=== PATIENT | male | born 1965 | race Caucasian/White ===

== ENCOUNTER 2023-06-29 11:52 | Emergency (ER) | payer OTHER, SELFPAY ==
--- NOTE | ~2023-06-29 | XR_ITS ---
EXAMINATION: XR elbow RT min 3V DATE: 06/29/2023 12:31 INDICATION: Right elbow swelling. TECHNIQUE: 4 views of right elbow were obtained. COMPARISON: None. FINDINGS: Bone alignment is normal. No fracture. Joint spaces are normal. No elbow joint effusion. Th ere is soft tissue swelling overlying the olecranon, consistent with bursitis. IMPRESSION: 1. Olecranon bursitis. Reviewed, dictated and finalized at location B. IMPRESSION: 1. Olecranon bursitis.
[2023-06-29 12:00] VITALS: BP 139/82; PULSE 83; RESP 16; TEMP 35.6; O2SAT 96
--- NOTE | 2023-06-29 12:27 | ED.GENADULT ---
HPI - General Adult General Chief complaint: Extremity Injury, Upper Stated complaint: Right Elbow Time Seen by Provider: 06/29/23 12:20 Source: patient, family, RN notes reviewed and old records reviewed Mode of arrival: ambulatory Limitations: no limitations History of Present Illness HPI narrative: 57 year old male who presents to [facility] care with complaints of right elbow pain, warmth, swelling and redness for one week duration. Patient reports that he hit his right elbow on an electric fence one week ago and progressed to having bursa of his right elbow swell with redness and pain developing. Patient reports that he has been taking Tylenol and using Epsom Salt soaks to his right elbow olecranon area.Patient appears to have fluid formation on olecranon process, he states he squeezed area yesterday and some blood came out of it. Patient reports no fevers, is able to move arm on own power does state that pain has increased today.Patient is on Plavix. MD complaint: right elbow red swollen, warm and painful Onset (ago): week(s) (1) Location: right and upper extremity (elbow bursa) Severity scale (1-10): 5 Quality: aching Treatments prior to arrival: other (Tylenol and Epsom Salt soaks) Related Data Home Medications Medication Instructions Recorded Confirmed amlodipine 10 mg tablet mg 06/29/23 atorvastatin 80 mg tablet mg 06/29/23 clopidogrel 75 mg tablet mg 06/29/23 fluticasone furoate 100 inhalation 06/29/23 mcg-vilanterol 25 mcg/dose inhalation powder (Breo Ellipta) lisinopril 40 mg tablet mg 06/29/23 metoprolol tartrate 100 mg tablet mg 06/29/23 Allergies Allergy/AdvReac Type Severity Reaction Status Date / Time No Known Allergies Allergy Verified 06/29/23 12:04 Review of Systems Review of Systems: CONSTITUTIONAL: Denies fever, chills, or sweats. EYES: Denies visual changes, redness, or discharge. ENT: Denies rhinorrhea, congestion, sore throat, or otalgia. CARDIOVASCULAR: Denies chest pain, palpitations, or edema. RESPIRATORY: Denies cough or dyspnea. GASTROINTESTINAL: Denies abdominal pain, nausea, vomiting, or diarrhea. GENITOURINARY: Denies dysuria or hematuria. SKIN: Denies rash or itching. MUSCULOSKELETAL: Denies back pain,positive for right elbow pain with swelling redness fluid filled appearance with warmth, or myalgia. NEUROLOGIC: Denies headache, numbness, or weakness. PSYCHIATRIC: Denies anxiety or depression. 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 There is no relevant family history pertinent to the presenting complaint Exam Narrative: GENERAL: Well-appearing, well-nourished, and in no acute distress. HEAD: Normocephalic, atraumatic. EYES: PERRLA and EOMI. ENT: Nares clear, no rhinorrhea or epistaxis. Mucous membranes moist. NECK: Supple.no lymphadenopathy CHEST: Clear to auscultation. No respiratory distress.SAO2 96% on room air no dyspnea noted HEART: Regular rate and rhythm. No murmur heard. Normal peripheral pulses. ABDOMEN: Soft, nontender, nondistended, normal active bowel sounds. EXTREMITIES: Normal range of motion. No edema.Exception noted to right olecranon area which has fluid filled tissue with acute pain, redness swelling and warmth of tissue area with increasing pain to site. Patient has good pulses of right arm, is able to move right arm and elbow on own power. SKIN: Warm, d
== END 2023-06-29 12:59 | disposition short-term general hospital (02) ==
PROVIDERS: Emergency Provider Registered Nurse
DX: M71.121 Other infective bursitis, right elbow (principal); E78.00 Pure hypercholesterolemia, unspecified; I10 Essential (primary) hypertension; Z87.891 Personal history of nicotine dependence; I25.10 Atherosclerotic heart disease of native coronary artery without angina pectoris; Z95.5 Presence of coronary angioplasty implant and graft; Z79.01 Long term (current) use of anticoagulants
CPT/HCPCS: 73080; 99213; G0463

== ENCOUNTER 2024-11-29 13:05 | Emergency (ER) | payer OTHER, SELFPAY ==
[2024-11-29 13:28] VITALS: BP 126/81; PULSE 121; RESP 22; TEMP 36.1; O2SAT 98
--- NOTE | 2024-11-29 13:54 | ED.GENADULT ---
HPI - General Adult General Chief complaint: Unspecified Stated complaint: PAIN IN LEGS/KNEES/SHOULDERS Time Seen by Provider: 11/29/24 13:54 Source: patient, RN notes reviewed and old records reviewed Mode of arrival: ambulatory Limitations: no limitations History of Present Illness HPI narrative: 59-year-old male presents to the [facility] with bilateral shoulder, knee pain since cleaning out the horse Stalls 2-3 days ago. Has been taking ibuprofen Patient reports just generalized ?muscle pain?. Patient denies any chest pain or shortness of breath. Patient reports he has been taking ibuprofen and Tylenol at home. Treatments prior to arrival: NSAID Related Data Home Medications ?Medication ?Instructions ?Recorded ?Confirmed ?Last Taken ?Type amlodipine 10 mg tablet 10 mg PO DAILY 06/29/23 Unknown History atorvastatin 80 mg tablet 80 mg PO DAILY 06/29/23 Unknown History clopidogrel 75 mg tablet 75 mg PO DAILY 06/29/23 Unknown History lisinopril 40 mg tablet 40 mg PO DAILY 06/29/23 Unknown History metoprolol tartrate 100 mg tablet 100 mg PO DAILY 06/29/23 Unknown History ezetimibe 10 mg tablet 10 mg PO DAILY 11/29/24 Unknown History Allergies Allergy/AdvReac Type Severity Reaction Status Date / Time No Known Allergies Allergy Verified 11/29/24 13:42 Review of Systems Review of Systems: All systems reviewed & are unremarkable except as noted in HPI and below Constitutional: Constitutional: Reports no additional constitutional complaints ENT: Reports system reviewed and no additional complaints, except as documented Cardiovascular: Cardiovascular: Reports no additional cardiovascular complaints, Denies chest pain and Denies dyspnea Respiratory: Respiratory: Reports no additional respiratory complaints, Denies chest congestion, Denies cough and Denies dyspnea Musculoskeletal: Musculoskeletal: Reports as per HPI Integumentary/Breasts: Skin/Breast: Reports system reviewed and no additional complaints, except as docu PMFSH Past Medical History Medical History Myocardial infarction Hx of [facility] use of blood thinners Elevated cholesterol Hypertension Surgical History Surgical History History of heart artery stent LAD History of cholecystectomy Social History Social History Smoking status: Never smoker Smoking end date: 11/26/05 Alcohol intake: current Comments At the time of my signature, I reviewed and agree with the nursing past medical, surgical, social, and family history. There is no relevant family history pertinent to the patient complaint. Exam Const: General: cooperative, healthy appearing, no acute distress, well developed, alert, uncomfortable and well nourished Nutritional Appearance: well nourished Orientation/consciousness: patient oriented x3 Limitations: no limitations HENMT: Head: normal to inspection Eyes: General: appearance normal, both eyes and all related structures Alignment and Position: alignment normal Neck: Neck: normal visual inspection, full ROM, no lymphadenopathy and no meningeal signs Chest: Chest palpation & inspection: normal inspection of the chest and no tenderness Resp: Effort & Inspection: normal respiratory effort and able to speak in complete sentences Auscultation: clear to auscultation bilaterally, no crackles, no rales, no rhonchi and no wheezes Cardio: Rate: regular rate Back/Spine/Pelvis: Back: no CVA tenderness Cervical Spine: normal cervical lordosis, cervical ROM normal and No Cervical spine tenderness Thoracic/Lumbar Spine: No thoracic spinal tenderness and No lumbar spinal tenderness Skin: General skin exam: normal color and no rashes or lesions noted Neuro: General: patient oriented x3, gait normal, moves all extremities and no meningeal signs Cognition (Neuro): normal cognition Speech: normal speech Gait exam (Neuro): Normal gait present Extrem: General: normal to inspection, full ROM, capillary refill normal and normal gait Psych: Appearance: grossly normal and well kempt Mental Status: mental status grossly normal Speech and movement: Normal speech and movement present and Clear speech present Affect: normal affect Attitude: cooperative Course Course Level of Care: Express Care Visit Vital Signs Vital signs: Vital Signs Temperature 96.9 F L 11/29/24 13:28 Pulse Rate 121 H 11/29/24 13:28 Respiratory Rate 22 H 11/29/24 13:28 Blood Pressure 126/81 11/29/24 13:28 Pulse Oximetry 98 11/29/24 13:28 Oxygen Delivery Room Air 11/29/24 13:28 Temperature 96.9 F L 11/29/24 13:28 Pulse Rate 121 H 11/29/24 13:28 Respiratory Rate 22 H 11/29/24 13:28 Blood Pressure 126/81 11/29/24 13:28 Pulse Oximetry 98 11/29/24 13:28 Oxygen Delivery Room Air 11/29/24 13:28 Reviewed Medical Decision Making MDM Narrative Medical decision making narrative: Patient sitting comfortably in exam room. Nontoxic, vitals stable. Patient in no acute distress Patient presents for 3 day history of generalized muscle pain worse with movement. No acute findings noted on exam. No rashes, erythema, ecchymosis. No midline spinal tenderness. Educated patient on not using ibuprofen especially when he is on blood thinners. Will attempt a muscle relaxer. Discussed in great detail signs and symptoms to go the emergency room in regards to the body aches. Patient was denying chest pain and shortness of breath. Discharge instructions reviewed with patient, as well as provided in writing per nursing staff. The instructions also include specific and strict return/GO TO THE ER as well as f/u information. All questions have been answered, and the patient deny any further questions with discharge and discharge plan. Some parts of this dictation were generated by voice recognition software and may contain typographical and/or grammatical inaccuracies. Differential Diagnosis Differential Diagnosis: Muscle strain, pain, rhabdo Medical Records Medical records reviewed: Yes I reviewed the external patient's medical records. Vital Signs Vital Signs: Vital Signs Temperature 96.9 F L 11/29/24 13:28 Pulse Rate 121 H 11/29/24 13:28 Respiratory Rate 22 H 11/29/24 13:28 Blood Pressure 126/81 11/29/24 13:28 Pulse Oximetry 98 11/29/24 13:28 Oxygen Delivery Room Air 11/29/24 13:28 Temperature 96.9 F L 11/29/24 13:28 Pulse Rate 121 H 11/29/24 13:28 Respiratory Rate 22 H 11/29/24 13:28 Blood Pressure 126/81 11/29/24 13:28 Pulse Oximetry 98 11/29/24 13:28 Oxygen Delivery Room Air 11/29/24 13:28 Reviewed Lab Data Lab results reviewed: Yes I reviewed the patient's lab results. Labs: Reviewed Critical Care Time Critical Care Time Critical Care Time: No Discharge Plan Discharge Clinical Impression: Muscle strain Patient Disposition: Home, Self-Care Condition: Stable Instructions: Musculoskeletal Pain (ED), Lower Back Exercises (ED) Additional Instructions: Take Tylenol per package instructions. Take Baclofen (muscle relaxer) as directed. Do not drink, drive, operate machinery, or do anything dangerous while taking this medication While on Plavix it is not recommended that you do take ibuprofen or any other nonsteroidal anti-inflammatories. Exercise:Combine aerobic exercise, like walking or swimming, with specific exercises to keep the muscles in your back and abdomen strong and flexible. Proper Lifting:Be sure to lift heavy items with your legs, not your back. Do not bend over to pick something up. Keep your back straight and bend at your knees. Weight:Maintain a healthy weight. Being overweight puts added stress on your lower back. Avoid Smoking:Both the smoke and the nicotine cause your spine to age faster than normal. Proper Posture:Good posture is important for avoiding future problems. A therapist can teach you how to safely stand, sit, and lift. Use warm moist heat to help with pain. Using topical such as Biofreeze, Kenneth-Smith or Aspercreme can also help Follow up with Primary provider in 2-3 days, This may become a chronic condition and they will be the one to help manage your pain and order additional testing. Go to the nearest ER if you develop problems with new or worsening symptoms, bladder/bowel function, weakness or loss of feeling in one or both of your legs. Patient Language: Chinese Prescriptions: New baclofen 10 mg tablet 10 mg PO TID PRN (Reason: muscle pain) Qty: 10 0RF No Action atorvastatin 80 mg tablet 80 mg PO DAILY metoprolol tartrate 100 mg tablet 100 mg PO DAILY clopidogrel 75 mg tablet 75 mg PO DAILY amlodipine 10 mg tablet 10 mg PO DAILY lisinopril 40 mg tablet 40 mg PO DAILY ezetimibe 10 mg tablet 10 mg PO DAILY Follow-up/Referrals: Serg,Brice Spencer MD [Primary Care Provider] - 2 Weeks ([facility] care follow up ) Stand Alone Forms: Work/School Release IP Time of Disposition: 14:11
--- OUTSIDE RECORDS SUMMARY | 2024-12-06 19:52 | XMS_ITS | Data Portability ---
Author Organization [facility] BETOTracie Sifuentes Address [address] [place] [address] Care Team Providers Care Shake Maker Name Role Phone BRICE BERNARD Primary Care Provider Assessment Encounter Date Assessment Date Assessment LastModified by Organization Details LastModified Time 01/18/2016 01/18/2016 Patient was encouraged to consider a colonoscopy. He is UTD on his Td. [email or web address] Not available 01/18/2016 18:23:44 12/11/2017 12/11/2017 Dr. Aguilar is his sweet dough mixer, whom pt sees annually. Not available 12/12/2017 13:43:47 03/26/2019 03/26/2019 If no marked improvement with Medrol dosepak, pt is to let us know, at which point we would likely recommend an orthopedic referral. Not available 03/26/2019 20:29:06 09/11/2023 09/11/2023 Pt is stable with workup as described below. He was accompanied by his . Mamie. 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 [email or web address] Not available 01/21/2024 07:30:07 Plan of Treatment Reminders Order Date Submit Date Provider Last Modified By Organization Details Last Modified Time Details Appointments None record ed. Lab CBC 2015 016 [email or web address], [address] [place], [address], 6 04:22:11 TSH, serum or plasma 2015 016 [email or web address], [address] [place], [address], 6 04:22:12 lipid panel, serum 2015 016 [employer] [facility], [address] [place], [address], 6 04:22:10 CMP, serum or plasma 2015 016 [employer] [facility], [address] [place], [address], 6 04:22:11 PSA, total, serum or plasma 2022 023 [email or web address] [facility], [address] [place], [address], 3 15:18:17 HbA1c (hemog lobin A1c), blood 2022 023 [email or web address] [facility], [address] [place], [address], 3 15:18:17 lipid panel, serum 2022 023 [email or web address] [facility], [address] [place], [address], 3 15:18:17 CMP, serum or plasma 2022 023 [email or web address] [facility], [address] [place], [address], 3 15:18:17 TSH, ultra- sensit lucila, serum 2022 023 [email or web address] [facility], [address] [place], [address], 3 15:18:17 CBC w/ auto diff 2022 023 [email or web address] [facility], [address] , [place], [address], 3 15:18:17 Referral hand surgeo n referr al 2022 023 [email or web address] Arrington MD, [address] [facility] , [address], [place], [address], 4 16:56:02 orthop edic surgeo n referr al 2023 024 LYNN Soriano MD, [address] [facility] , [address], [place], [address], 4 12:51:28 orthop edic surgeo n referr al 2023 024 LYNN Soriano MD, [address] [facility] , [address], [place], [address], 4 16:07:13 Procedures None record ed. Surgeries None record ed. Imaging None record ed. Medication Orders Bactri m DS 800 mg-160 mg tablet 2015 016 [facility], [address], [place], [address], 8 14:47:53 amlodi pine 5 mg tablet [address] [facility], [address] [place] [address], [address], [place], [address], 3 07:50:35 Medrol (Sharath) 4 mg tablet s in a dose pack [address] [facility], [address], [place], [address], 3 07:50:57 tramad ol 50 mg tablet [address] [facility], [address], [place], [address], 07:28:49 Patient TargetsNo targets recorded. Patient Instructions Encounter Date Encounter Id Patient Instructions Last Modified By Organization Details Last Modified Time 01/18/2016 [id number] plantar fasciitis: care instructions [email or web address] Not available 01/18/2016 18:23:44 plantar fasciitis: exercises [email or web address] Not available 01/18/2016 18:23:44 When You Want to Lose Weight: Care Instructions [email or web address] Not available 01/18/2016 18:23:44 12/11/2017 [id number] learning about high blood pressure [email or web address] Not available 12/11/2017 15:33:13 03/26/2019 [id number] learning about high blood pressure [email or web address] Not available 03/26/2019 15:08:30 09/11/2023 [id number] When You Want to Lose Weight: Care Instructions [email or web address] Not available 09/11/2023 15:18:17 learning about high blood pressure [email or web address] Not available 09/11/2023 15:18:17 Reason for Referral Hand Surgeon Referral for Pa in in right hand Referring Physician: Brice Bernard [facility], Encounter Date: 09/11/2023 Orthopedic Surgeon Referral for Pain of right knee region Referring Physician: Brice Bernard [facility], Encounter Date: 01/16/2024 Orthopedic Surgeon Referral for Pain in right thumb Referring Physician: Brice Bernard [facility], Encounter Date: 01/16/2024 Results Created Date Observation Date Name Description Value Unit Range Abnormal Flag Note LastModifiedBy Organization Detail LastModifiedTime 01/20/20 16 01/21/2016 lipid panel , serum cholesterol, total 302 mg/dL 125-20 0 high Not Available [facility] [address] [place], [address], 01/21/2016 06:32:08 01/20/20 16 01/21/2016 lipid panel , serum HDL cholesterol 42 mg/dL > or = 40 normal Not Available [facility] [address] [place], [address], 01/21/2016 06:32:08 01/20/20 16 01/21/2016 lipid panel , serum triglyceride s 260 mg/dL <150 high Not Available [facility] [address], [address], 01/21/2016 06:32:08 01/20/20 16 01/21/2016 lipid panel , serum LDL-choleste rol 208 mg/dL _(amirah c) <130 high LDL-C level s > or = 190 mg/dL may indic ate famil ial hyper anil stero lemia (FH). Clini amirah asses sment and measu remen t of blood lipid level s shoul d be consi dered for all first degre e relat juliann of patie nts with an FH diagn osis. J of Clini amirah Lipid ology 5:S1- S8 2010. Gabbi able range <100 mg/dL for patie nts with CHD or diabe steven and <70 mg/dL for diabe tic patie nts with known heart disea se. Not Available [facility] [address] [place], [address], 01/21/2016 06:32:08 01/20/20 16 01/21/2016 lipid panel , serum chol/HDLC ratio 7.2 (calc ) < or = 5.0 high Not Available [facility] [address], [address], 01/21/2016 06:32:08 01/20/20 16 01/21/2016 lipid panel , serum non HDL cholesterol 260 mg/dL _(amirah c) high Targe t for non-H DL anil stero l is 30 mg/dL highe r than LDL anil stero l targe t. Not Available [facility] [address], [address], 01/21/2016 06:32:08 01/20/20 16 01/21/2016 CMP, serum or plasm a glucose 115 mg/dL 65-99 high Fasti ng refer ence inter freddie Not Available [facility] [address], [address], 01/21/2016 06:32:01/20/20 16 01/21/2016 CMP, serum or plasm a urea nitrogen (BUN) 17 mg/dL 7-25 normal Not Available [address], [address], 01/21/2016 06:32:01/20/20 16 01/21/2016 CMP, serum or plasm a creatinine 0.99 mg/dL 0.70-1 .33 normal For patie nts >49 years of age, the refer ence limit for Creat inine is appro ximat narayan 13% highe r for peopl e ident ified as Afric an-Am shima n. Not Available [address], [address], 01/21/2016 06:32:01/20/20 16 01/21/2016 CMP, serum or plasm a eGFR non-afr. indian 88 mL/mi n/1.7 3m2 > or = 60 normal Not Available [facility] [address], [address], 01/21/2016 06:32:01/20/20 16 01/21/2016 CMP, serum or plasm a eGFR 102 mL/mi n/1.7 3m2 > or = 60 normal Not Available [facility] [address], [address], 01/21/2016 06:32:01/20/20 16 01/21/2016 CMP, serum or plasm a BUN/creatini ne ratio NOT APPLIC ABLE (calc ) 6-22 Not Available [address], [address], 01/21/2016 06:32:01/20/20 16 01/21/2016 CMP, serum or plasm a sodium 138 mmol/ L 135-14 6 normal Not Available [address], [address], 01/21/2016 06:32:01/20/20 16 01/21/2016 CMP, serum or plasm a potassium 4.6 mmol/ L 3.5-5. 3 normal Not Available [address], [address], 01/21/2016 06:32:01/20/20 16 01/21/2016 CMP, serum or plasm a chloride 102 mmol/ L 98-110 normal Not Available [address], [address], 01/21/2016 06:32:01/20/20 16 01/21/2016 CMP, serum or plasm a carbon dioxide 28 mmol/ L 19-30 normal Not Available [address], [address], 01/21/2016 06:32:01/20/20 16 01/21/2016 CMP, serum or plasm a calcium 9.7 mg/dL 8.6-10 .3 normal Not Available [address], [address], 01/21/2016 06:32:01/20/20 16 01/21/2016 CMP, serum or plasm a protein, total 7.3 g/dL 6.1-8. 1 normal Not Available [address], [address], 01/21/2016 06:32:01/20/2001/21/2016 CMP, serum or plasm a albumin 4.6 g/dL 3.6-5. 1 normal Not Available [facility] [employer] [address], [address], 01/21/2016 06:32:01/20/20 16 01/21/2016 CMP, serum or plasm a globulin 2.7 g/dL_ (calc ) 1.9-3. 7 normal Not Available [address], [address], 01/21/2016 06:32:09 01/20/20 16 01/21/2016 CMP, serum or plasm a albumin/glob ulin ratio 1.7 (calc ) 1.0-2. 5 normal Not Available [address], [address], 01/21/2016 06:32:09 01/20/20 16 01/21/2016 CMP, serum or plasm a bilirubin, total 0.6 mg/dL 0.2-1. 2 normal Not Available [address], [address], 01/21/2016 06:32:09 01/20/20 16 01/21/2016 CMP, serum or plasm a alkaline phosphatase 59 U/L 40-115 normal Not Available [facility] [employer] [address], [address], 01/21/2016 06:32:09 01/20/20 16 01/21/2016 CMP, serum or plasm a AST 24 U/L 10-35 normal Not Available [address], [address], 01/21/2016 06:32:09 01/20/20 16 01/21/2016 CMP, serum or plasm a ALT 32 U/L 9-46 normal Not Available [address], [address], 01/21/2016 06:32:09 01/20/20 16 01/21/2016 CBC white blood cell count 8.1 thous and/u L 3.8-10 .8 normal Not Available [address], [address], 01/21/2016 06:32:10 01/20/20 16 01/21/2016 CBC red blood cell count 5.50 lisandro on/uL 4.20-5 .80 normal Not Available [address], [address], 01/21/2016 06:32:10 01/20/20 16 01/21/2016 CBC hemoglobin 14.9 g/dL 13.2-1 7.1 normal Not Available [address], [address], 01/21/2016 06:32:10 01/20/20 16 01/21/2016 CBC hematocrit 46.6 % 38.5-5 0.0 normal Not Available [address], [address], 01/21/2016 06:32:10 01/20/20 16 01/21/2016 CBC MCV 84.6 fL 80.0-1 00.0 normal Not Available [address], [address], 01/21/2016 06:32:10 01/20/20 16 01/21/2016 CBC MCH 27.1 pg 27.0-3 3.0 normal Not Available [address], [address], 01/21/2016 06:32:10 01/20/20 16 01/21/2016 CBC MCHC 32.0 g/dL 32.0-3 6.0 normal Not Available [address], [address], 01/21/2016 06:32:10 01/20/20 16 01/21/2016 CBC RDW 14.2 % 11.0-1 5.0 normal Not Available [address], [address], 01/21/2016 06:32:10 01/20/20 16 01/21/2016 CBC platelet count 242 thous and/u L 140-40 0 normal Not Available [address], [address], 01/21/2016 06:32:10 01/20/20 16 01/21/2016 TSH, serum or plasm a TSH 2.71 mIU/L 0.40-4 .50 normal Not Available [facility] [address] [place], [address], 01/21/2016 06:32:10 05/20/20 19 05/13/2019 tread mill nucle ar stres s test (PROC ) No observ ation record ed. [email or web address] [facility] [employer]addle [employer] [address], [place], [address], 05/31/2019 23:40:51 Result Notes None recorded. Problems Name Problem SNOMED Code Status Onset Date Resolution Date Notes Provider Name and Address Organization Details Recorded Time Plantar fasciitis Active Brice Bernard MD Attn: Cedric rowland,[address] [place], [address], [place] - [facility] 6 18:23:44 Infection of skin 256704652 Active Brice Bernard MD Attn: Cedric rowland,[address] [place], [address], [place] [facility] 6 18:23:44 Arthritis 5889995 Active Brice Bernard MD Attn: Cedric [address]land,[address] [place], [address], [place] [facility] 6 18:23:44 Morbid obesity 334461526 Active Brice Bernard MD Attn: Cedric rowland,[address] [place], [address], [place] [facility] 6 18:23:44 Cellulitis of foot 357587699 Active Brice Bernard MD Attn: Cedric rowland,[address] [place], [address], [place] [facility] 6 14:06:04 Problem Notes None recorded. Procedures Surgical History Date Name Laterality Status Provider Name and Address Organization Details Recorded Time Cholecystectomy completed Camila Farfan [place] [facility] 01/16/2024 15:00:39 Imaging Results Imaging Date Name Status LastModified by Organiz ation Details LastModified Time 05/13/2019 treadmill nuclear stress test (PROC) completed [email or web address] [facility] [employer] [address], [place], [address], 05/31/2019 23:40:51 Procedure Notes None recorded. Medical Equipment None Reported. Allergies No known drug allergies Medications Name Sig Start Date Stop Date Status Note LastModified by Organization Details LastModified Time atorvasta tin 40 mg tablet TAKE 1 TABLET EVERY DAY 01/16 completed Not Available Not Available Not Available atorvasta tin 80 mg tablet TAKE 1 TABLET BY MOUTH ONCE DAILY active Not Available Not Available No t Available metoprolo l tartrate 100 mg tablet TAKE 1 TABLET BY MOUTH TWICE DAILY active Not Available Not Available No t Available ondansetr on HCl 8 mg tablet Take 1 tablet every 8 hours by oral route as needed. 01/16 completed Not Available Not Available Not Available Medrol (Sharath) 4 mg tablets in a dose pack take as directed 09/16 completed Not Available Not Available Not Available clopidogr el 75 mg tablet TAKE 1 TABLET BY MOUTH ONCE DAILY . APPOINTM ENT REQUIRED FOR FUTURE REFILLS active Not Available Not Available No t Available amlodipin e 5 mg tablet TAKE 1 TABLET BY MOUTH ONCE DAILY FOR 90 DAYS 09/16 completed Not Available Not Available Not Available tramadol 50 mg tablet Take by oral route for 7 days. 2023 active [facility] - Tramadol 50mg tab approved PA# [id number] from 02/05/24 to 03/06/24 Not Available Not Available Not Available acyclovir 800 mg tablet Take 1 tablet 5 times a day by oral route for 10 days. 01/16 completed Not Available Not Available Not Available cefadroxi l 500 mg capsule 09/16 completed Not Available Not Available Not Available alprazola m 0.25 mg tablet Take 1 tablet 3 times a day by oral route as needed. 01/16 completed Not Available Not Available Not Available amlodipin e 10 mg tablet TAKE 1 TABLET BY MOUTH ONCE DAILY active Not Available Not Available No t Available aspirin 81 mg chewable tablet Chew 1 tablet every day by oral route. 01/16 completed Not Available Not Available Not Available albuterol sulfate HFA 90 mcg/actua tion aerosol inhaler INHALE 2 PUFFS BY MOUTH EVERY 4 HOURS NEEDED FOR WHEEZING OR SHORTNES S OF BREATH 01/16 completed Not Available Not Available Not Available lisinopri l 40 mg tablet TAKE 1 TABLET BY MOUTH ONCE DAILY active Not Available Not Available No t Available naproxen 500 mg tablet TAKE 1 TABLET BY MOUTH TWICE DAILY WITH MEALS active Not Available Not Available No t Available Bactrim DS 800 mg-160 mg tablet Take 1 tablet every 12 hours by oral route. 12/11 completed Not Available Not Available Not Available Vitamin C take 1 tablet daily active Not Available Not Available No t Available vitamin E take 1 tablet daily active Not Available Not Available No t Available Symbicort 160 mcg-4.5 mcg/actua tion HFA aerosol inhaler INHALE 2 PUFFS BY MOUTH TWICE DAILY. RINSE MOUTH WITH WATER AFTER USE. DO NOT SWALLOW. 01/16 completed Not Available Not Available Not Available metoprolo l suc 100 mg-hydroc hlorothia zide 12.5 mg tablet,ex t.rel 24 hr Take 1 tablet twice a day by oral route. 09/16 completed Not Available Not Available Not Available Breo Ellipta 100 mcg-25 mcg/dose powder for inhalatio n INHALE 1 PUFF BY MOUTH DAILY. RINSE MOUTH WITH WATER AFTER USE. DO NOT SWALLOW. 01/16 completed Not Available Not Available Not Available Anoro Ellipta 62.5 mcg-25 mcg/actua tion powder for inhalatio n INHALE 1 PUFF BY MOUTH ONCE DAILY 01/16 completed Not Available Not Available Not Available Vitamin B12 take 1 tablet daily active Not Available Not Available No t Available Vitals Date Recorded Body height Body mass index (BMI) Body weight Heart rate Respiratory rate Body temperature Systolic blood pressure Diastolic blood pressure Provider Name and Address Organization Details Last Updated DateTime 8 193.04 cm 36.2 kg/m2 152079. 12 g 76 /min 16 /min 97.9 [degF] 164 mm[Hg] 90 mm[Hg] Camila Farfan [place] [facility] 8 14:47:13 Date Recorded Body weight Heart rate Respiratory rate Body temperature Systolic blood pressure Diastolic blood pressure Provider Name and Address Organization Details Last Updated DateTime 9 025321. 27 g 80 /min 16 /min 98.1 [degF] 122 mm[Hg] 80 mm[Hg] Camila Farfan MA [facility] 9 14:28:32 Date Recorded Body height Body mass index (BMI) Body weight Oxygen saturation Oxygen saturation in Arterial blood by Pulse oximetry Heart rate Respiratory rate Body temperature Provider Name and Address Organization Details Last Updated DateTime 3 193.04 cm 36.9 kg/m2 661685. 49 g 95 % 95 % 72 /min 16 /min 96.9 [degF] Camila Farfan MA [facility] 3 12:02:53 Date Recorded Systolic blood pressure Diastolic blood pressure Provider Name and Address Organization Details Last Updated DateTime 09/11/2023 164 mm[Hg] 100 mm[Hg] Brice Bernard MD Attn: Accounting[address] [place], [address], [facility] 09/16/2023 07:50:12 Date Recorded Body height Body mass index (BMI) Body weight Oxygen saturation Oxygen saturation in Arterial blood by Pulse oximetry Heart rate Respiratory rate Body temperature Provider Name and Address Organization Details Last Updated DateTime 4 193.04 cm 35.6 kg/m2 040196. 77 g 98 % 98 % 68 /min 16 /min 96.9 [degF] Camila Farfan MA [facility] 4 15:02:19 Date Recorded Systolic blood pressure Diastolic blood pressure Systolic blood pressure Diastolic blood pressure Provider Name and Address Organization Details Last Updated DateTime 01/16/2024 154 mm[Hg] 90 mm[Hg] 132 mm[Hg] 90 mm[Hg] Brice Bernard MD Attn: Accounting ,[address] [place], [address] , [facility] 4 15:27:15 Date Recorded Body mass index (BMI) Heart rate Body height Body weight Respiratory rate Systolic blood pressure Diastolic blood pressure Provider Name and Address Organization Details Last Updated DateTime 6 35.7 kg/m2 68 /min 193.04 cm 877764. 833314 g 16 /min 138 mm[Hg] 90 mm[Hg] Rosario Krishna MA [facility] 6 14:15:44 Social History Question Answer Notes LastModified by Organizat ion Details LastModified Time Tobacco Smoking Status Former Smoker Rosario Krishna MA null, [place] - [facility] 01/18/2016 14:11:17 Do You Have An Advance Directive? No Information not available 01/16/2024 What Is Your Level Of Alcohol Consumption? None Information not available 01/16/2024 Are You Blind Or Do You Have Difficulty Seeing? Yes Is Supposed To Use Glasses But Doesn't Information not available 01/16/2024 What Is Your Level Of Caffeine Consumption? Occasional Some Soda, No Coffee, Decafe Sweet Tea. Information not available 01/16/2024 In The 14 Days Before Symptom Onset, Have You Had Close Contact With A Laboratory-confi rmed COVID-19 While That Case Was Ill? No Information not available 01/16/2024 In The 14 Days Before Symptom Onset, Have You Had Close Contact With A Person Who Is Under Investigation For COVID-19 While That Person Was Ill? No Information not available 01/16/2024 Have You Been To An Area Known To Be High Risk For COVID-19? No Information not available 01/16/2024 Are You Currently Employed? Yes Information not available 01/16/2024 Are You Deaf Or Do You Have Serious Difficulty Hearing? No Information not available 01/16/2024 What Type Of Diet Are You Following? REGULAR Information not available 01/16/2024 Are There Any Guns Present In Your Home? Yes Information not available 01/16/2024 What Was The Date Of Your Most Recent Tobacco Screening? 01/16/2024 Information not available 01/16/2024 How Many Children Do You Have? 3 3 Biological And 4 Step Children Information not available 01/16/2024 Do You Use Protection During Sex? No Information not available 01/16/2024 What Is Your Relationship Status? 18 Years Information not available 01/16/2024 Do You Use Your Seat Belt Or Car Seat Routinely? Yes Information not available 01/16/2024 Are You Sexually Active? Yes Information not available 01/16/2024 Do You Have Smoke And Carbon Monoxide Detectors In Your Home? Yes Information not available 01/16/2024 At What Age Did You Start Smoking Tobacco? 23 Information not available 01/16/2024 Are You Passively Exposed To Smoke? Yes Information not available 01/16/2024 How Much Tobacco Do You Smoke? No Information not available 01/16/2024 Do You Feel Stressed (tense, Restless, Nervous, Or Anxious, Or Unable To Sleep At Night)? [id number] Information not available 01/16/2024 Do You Use Any Illicit Or Recreational Drugs? No Information not available 01/16/2024 Do You Use Sunscreen Routinely? No Information not available 01/16/2024 Has Tobacco Cessation Counseling Been Provided? No Information not available 01/16/2024 On What Date Was Tobacco Cessation Counseling Provided? 01/16/2024 Information not available 01/16/2024 Do You Or Have You Ever Used Any Other Forms Of Tobacco Or Nicotine? No Information not available 01/16/2024 Sex: Male Functional Status Question Answer Note LastModified by Organizat ion Details LastModified Time Are you able to care for yourself? Yes Information not available 01/16/2024 What is your exercise level? Occasional Information not available 01/16/2024 Mental Status None recorded. Family History Nothing Reported Notes:PT. states that both h is children have been dx with lymphomas. Medical History Condition Response COPD Y Heart Attack ([place]) Y Past Encounters Encounter ID Performer Location Encounter Start Date Encounter Closed Date Diagnosis/Indication Diagnosis SNOMED-CT Code Diagnosis ICD10 Code Diagnosis Note [id number] Brice Bernard MD [facility] [address] [place] [address] 01/18/2016 13:37:33 01/18/2016 17:28:56 Plantar fasciitis 313925676 M72.2 Continue with stretching exercises and OTC NSAIDS. Pt was encouraged to work on his weight as well. If no improvemen t, pt will contact us for a referral to a comfort station supervisor . Infection of skin 082490 000 L08.9 Arthritis 7818566 M19.90 Morbid obesity 911815384 E66.01 Ex-smoker 4422365 Z87.89 1 [id number] Brice Bernard MD [facility] [address] [place] [address] 12/11/2017 14:30:32 12/12/2017 15:17:55 Essential hypertension 19569602 I10 Pt is encouraged to lose weight in an attempt to improve BP and thus be off medication s eventually . History of myocardial infarction 079929728 I25.2 8-9 years ago Trigger fi nger of right hand 7211652096 7883670 M65.30 Pt does not want treatment now but will let us know. 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 Pain in right hand 89076 96881 87527 M79.641 Morbid obesity 163044518 E66.01 Screening for malignant neoplasm of prostate 567089231 Z12.5 Under care of sweet dough mixer 268539285 Z76.89 [id number] MD [address]ue Little [address] [place] [address] 01/16/2024 14:04:01 01/22/2024 12:24:36 Pain of right knee region 1731957589 07841 M25.561 Pain in right thumb 1076 181905 232491 M79.644 Health Concerns Section Related Observation LastModified by Organization Detai ls LastModified Time None Recorded Concern Status LastModified by Organization Details LastModified Time None Recorded Advance Directives Directive N: Payers Encounter Date Sequence Insurance Name Policy Number Policy Dupont Covered Member ID [employer] Member ID Guarantor Name 01/18/2016 1 [employer] BENEFITS - OPEN ACCESS III (PPO) BEVFARMS Mamie Corzine [id number] Simeon Reed 12/11/2017 1 [facility] BENEF[employer] - OPEN ACCESS III (PPO) BEVFARMS Mamie Corzine [id number] Simeon Reed 03/26/2019 1 [facility] [facility] BENEFITS - OPEN ACCESS III (PPO) BEVFARMS Mamie Corzine [id number] Simeon Reed 09/11/2023 1 [employer] - [employer] - OPEN ACCESS [id number] Mamie Corzine [id number] OI Simeon Corzine 01/16/2024 1 [facility] [facility] [employer] - OPEN ACCESS [id number] Mamie Corzine [id number] OI Simeon Reed Notes Date Note Type Note Provider Name and Address Organization Details Recorded Time 01/18/2016 text/html . First visit here. 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 Brice Bernard MD Attn: Accounting,[address] [place], [address], [facility] 01/18/2016 18:24:35 12/11/2017 text/html Pt presents for an annual checkup. No acute issues. Brice Bernard MD Attn: Accounting[address] [place], [address], [facility] 12/12/2017 13:45:56 03/26/2019 text/html Pt presents for a checkup. He is feeling better after a recent episode of bleeding gastric ulcer and acute blood loss. 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 He c/o chronic pain at right thumb ever since injury some 18 months ago. He describes intense pain at right hypothenar area at times. Brice Bernard MD Attn: Accounting,[address] [facility], [place], [address], [facility] 03/26/2019 20:29:20 09/11/2023 text/html Pt presents for the first time since 2018. 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 Brice Bernard MD Attn: Accounting,[address] [facility], [place], [address], [facility] 09/16/2023 07:53:52 01/16/2024 text/html Per intake note. Brice jewell MD Attn: Accounting,[address] [facility], [place], [address], [facility] 01/21/2024 07:30:31
--- OUTSIDE RECORDS SUMMARY | 2024-12-06 19:52 | XMS_ITS | Encounter Summary ---
Author Organization [facility] Address [address] [place] [address] Care Team Providers Care Sr Risk Management Consultant Name Role Phone Brice Ulrich MD Primary Care Provider [phone] Encounter Details Date Type Department Care Team (Late st Contact Info) Description 04/09/2023 Orders Only [facility] Pulmonary at [place] [address] [facility] [address] [place] [address] Sloan Cramer MD [address] [place] [address] [address] [place] [address] Social History Tobacco Use Types Packs/Day Years Used Date Smoking Tobacco: Former Cigarettes 1 25 Smokeless Tobacco: Never Sex and Gender Information Value Date Recorded Sex Assigned at Not on file 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 Gender Identity Not on file Sexual Orientation Not on file documented as of this encounter Ordered Prescriptions Prescription Sig Dispense Quantity Refills Last Filled Start Date End Date umeclidinium-vilan teroL (ANORO ELLIPTA) 62.5-25 mcg/actuation blister with device Inhale 1 puff daily 30 each 11 04/09/2023 05/17/2023 documented in this encounter Plan of Treatment Not on file documented as of this encounter Visit Diagnoses Not on filedocumented in this encounter Care Teams Sr Risk Management Consultant Relationship Specialty Start Date End Date Brice Ulrich MD PCP - General 04/18/17 documented as of this encounter
--- OUTSIDE RECORDS SUMMARY | 2024-12-06 19:52 | XMS_ITS | Encounter Summary ---
Author Organization [facility] Healthcare Address [address] [place] [address] Care Team Providers Care Mailroom Clerk Name Role Phone Brice Ulrich MD Primary Care Provider [phone] Encounter Details Date Type Department Care Team (Late st Contact Info) Description 02/01/2024 9:45 AM SPECIALTY FOOD PRODUCTS SUPERVISOR Lab [address] [address] Elevated LDL cholesterol level Social History Tobacco Use Types Packs/Day Years Used Date Smoking Tobacco: Former Cigarettes 1 25 Smokeless Tobacco: Never Personal Safety Answer Date Recorded Have you ever been in or are you currently in a harmful physical or emotional relationship or is someone making you feel afraid or unsafe? Denies 06/29/2023 Sex and Gender Information Value Date Recorded Sex Assigned at Not on file Legal Sex Male 12:13 PM SPECIALTY FOOD PRODUCTS SUPERVISOR Gender Identity Not on file Sexual Orientation Not on file documented as of this encounter Plan of Treatment Not on file documented as of this encounter Procedures Procedure Name Priority Date/Time Associated Diagnosis Comments HEPATIC FUNCTION PANEL Routine 02/01/2024 9:55 AM SPECIALTY FOOD PRODUCTS SUPERVISOR Elevated LDL cholesterol level LIPID PANEL Routine 02/01/2024 9:55 AM SPECIALTY FOOD PRODUCTS SUPERVISOR Elevated LDL cholesterol level documented in this encounter Results * Hepatic function panel (02/01/2024 9:55 AM SPECIALTY FOOD PRODUCTS SUPERVISOR) Bilirubin, total 0.7 0.1 - 1.2 mg/dL Bilirubin, direct <0.2 0.1 - 0.3 mg/dL [facility] ([place]) Comment: Hemolysis present. ??Results may be affected. Slightly Hemolyzed Specimen Protein, pl 6.9 6.5 - 8.5 g/dL [facility] ([place]) Albumin 4.3 3.5 - 5.0 g/dL [facility]) Alk phos 71 40 - 130 Units/L [facility] ([place]) ALT 26 7 - 55 Units/L [facility]) AST 25 10 - 50 Units/L [facility] ([place]) Comment: Hemolysis present. ??Results may be affected. Slightly Hemolyzed Specimen Blood 02/01/2024 9:55 AM SPECIALTY FOOD PRODUCTS SUPERVISOR 02/01/2024 10:11 AM SPECIALTY FOOD PRODUCTS SUPERVISOR us Cristian Aguilar MD LAB BLOOD ORDERABLES Final Re sult [facility] ([place]) 1 [facility] Department [place] [address] * Lipid panel (02/01/2024 9:55 AM SPECIALTY FOOD PRODUCTS SUPERVISOR) Cholesterol 183 30 - 199 mg/dL Comment: Interpretive Data Ages < or = 19 years ??Acceptable: ? <170 mg/dL ??Borderline high: ??170-199 mg/dL ??High: ? >or= 200 mg/dL Ages > or = 20 years ??Desirable: ?<200 mg/dL ??Borderline high: ??200-239 mg/dL ??High: ? >or= 240 mg/dL Literature References: 1. Expert Panel on Integrated Guidelines for Cardiovascular Health and Risk Reduction in Children and Adolescents. Pediatrics 2011;128:S213 2. NCEP Expert Panel. Circulation 2004;110:227 Current Interpretive Data was last revised on 2018. Triglycerides 132 <=149 mg/dL [facility] ([place]) Comment: Interpretive Data Ages < or = 9 years ??Acceptable: ? <75 mg/dL ??Borderline high: ??75-99 mg/dL ??High: ? >or= 100 mg/dL Ages 10 to 20 years ??Acceptable: ? <90 mg/dL ??Borderline high: ??90-129 mg/dL ??High: ? >or= 130 mg/dL Ages > or = 20 years ??Desirable: ?<150 mg/dL ??Borderline high: ??150-199 mg/dL ??High: ? 200-499 mg/dL ?Very high: ?? >or= 499 mg/dL Literature References: 1. Expert Panel on Integrated Guidelines for Cardiovascular Health and Risk Reduction in Children and Adolescents. Pediatrics 2011;128:S213 2. NCEP Expert Panel. Circulation 2004;110:227 Current Interpretive Data was last revised on 2018. HDL 47 >=40 mg/dL [facility]) Comment: Interpretive Data Ages < or = 19 years ??Acceptable: ? >45 mg/dL ??Borderline low: ?? 40-45 mg/dL ??Low: ? <40 mg/dL Ages > or = 20 years ??Desirable: ?>or= 60 mg/dL ??Low: ? <40 mg/dL Literature References: 1. Expert Panel on Integrated Guidelines for Cardiovascular Health and Risk Reduction in Children and Adolescents. Pediatrics 2011;128:S213 2. NCEP Expert Panel. Circulation 2004;110:227 Current Interpretive Data was last revised on 2018. LDL, calculated 110 <=129 mg/dL [facility] ([place]) Comment: Interpretive Data Ages < or = 19 years ??Acceptable: ? <110 mg/dL ??Borderline high: ??110-129 mg/dL ??High: ?>or= 130 mg/dL Ages > or = 20 years ??Optimal: ? <100 mg/dL ??Near optimal: ?100-129 mg/dL ??Borderline high: ?? 130-159 mg/dL ??High: ?>160 mg/dL Literature References: 1. Expert Panel on Integrated Guidelines for Cardiovascular Health and Risk Reduction in Children and Adolescents. Pediatrics 2011;128:S213 2. NCEP Expert Panel. Circulation 2004;110:227 Current Interpretive Data was last revised on 2018. Non-HDL Cholesterol 136 mg/dL [facility] ([place]) Comment: Interpretive Data Ages < or = 19 years ??Acceptable: ?<120 mg/dL ??Borderline high: ??120-144 mg/dL ??High: ?>145 mg/dL Ages > or = 20 years ??When triglycerides are >200 mg/dL, Non-HDL cholesterol is a secondary target of ? therapy with treatment goals that are 30 mg/dL greater than the LDL cholesterol target. ? Literature References: 1. Expert Panel on Integrated Guidelines for Cardiovascular Health and Risk Reduction in Children and Adolescents. Pediatrics 2011;128:S213 2. NCEP Expert Panel. Circulation 2004;110:227 Current Interpretive Data was last revised on 2018. Chol/HDL ratio 4 [facility] ([place]) Blood 02/01/2024 9:55 AM SPECIALTY FOOD PRODUCTS SUPERVISOR 02/01/2024 10:11 AM SPECIALTY FOOD PRODUCTS SUPERVISOR us Cristian Aguilar MD LAB BLOOD ORDERABLES Final Re sult [facility] ([place]) 1 [facility] Department [place] [address] documented in this encounter Visit Diagnoses Diagnosis Elevated LDL cholesterol level documented in this encounter Care Teams Mailroom Clerk Relationship Specialty Start Date End Date Brice Ulrich MD PCP - General 04/18/17 documented as of this encounter
--- OUTSIDE RECORDS SUMMARY | 2024-12-06 19:52 | XMS_ITS | Encounter Summary ---
Author Organization [facility] Address [address] [place] [address] Care Team Providers Care Dining Chair Seat Cushion Trimmer Name Role Phone Brice Ulrich MD Primary Care Provider [phone] Reason for Visit * Reason Onset Date Comments Test Results 04/03/2023 Encounter Details Date Type Department Care Team (Late st Contact Info) Description 04/03/[address] 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 verbalizes good understanding. * Telephone Encounter - Dolores Caballero Juanis - 04/09/2023 11:51 AM CDT Pt mamie ( on hipaa) called in and gave her your message. - she is wanting to know what inhaler you are going to be sending in to pharmacy? She said that it would be fine and they will try it for a few weeks to see if it will help . [facility]acy- [facility] [place] * Telephone Encounter - Anni Albarado LPN - 04/06/2023 12:15 PM CDT Called pt, no answer, left message to call office. * Telephone Encounter - Anni Albarado LPN - 04/03/2023 8:51 AM CDT Called pt, no answer, left message to call office. * Telephone Encounter - Anni Albarado LPN - 04/03/2023 8:51 AM CDT ----- Message from Sloan Cramer MD sent at 04/03/2023 4:36 AM CDT ----- Please let the patient know that his pulmonary function testing is consistent with obstructive lungdisease. I would recommend that we start the patient on an inhaler. Please let me know if the patient would like me to send this to his pharmacy. It may take some trial and error to figure out which inhaler will be best for him as well as cost effective Thanks documented in this encounter Plan of Treatment Not on file documented as of this encounter Visit Diagnoses Not on filedocumented in this encounter Care Teams Dining Chair Seat Cushion Trimmer Relationship Specialty Start Date End Date Brice Ulrich MD PCP - General 04/18/17 documented as of this encounter
--- OUTSIDE RECORDS SUMMARY | 2024-12-06 19:52 | XMS_ITS | Encounter Summary ---
Author Organization [facility] Healthcare Address [address] [place] [address] Care Team Providers Care Rn Digestive Name Role Phone Brice Ulrich MD Primary Care Provider [phone] Reason for Visit * Diagnostic Imaging (Routine) - Closed Specialty Diagnoses / Procedures Referred By Contac t Referred To Contact Diagnoses Right knee pain, unspecified chronicity Procedures XR Pelvis 1 or 2 Views Alyson Barbour PA [address] [place] [address] [address] [place] [address] Phone: tel: fax: Referral ID Status Reason Start Date Expiration Date Visits Re quested Visits Authorized [id number] Closed 02/01/2024 03/02/2025 1 1 Encounter Details Date Type Department Care Team (Latest Contact Info) Description 02/01/2024 7:47 AM INVASIVE PHYSICIAN - 02/01/2024 11:59 PM INVASIVE PHYSICIAN Hospital Encounter [facility] Orthopedics and Sports Medicine [address] [place] [address] [place] [phone] Discharge Disposition: Discharge to home or self care Social History Tobacco Use Types Packs/Day Years [...] on file Legal Sex Male 12:13 PM INVASIVE PHYSICIAN Gender Identity Not on file Sexual Orientation Not on file documented as of this encounter Medications at Time of Discharge albuterol HFA (Proventil HFA) 90 mcg/actuation inhaler Inhale 2 puffs every 4 (four) hours as needed for wheezing or shortness of breath 6.7 g 5 05/24/2023 ascorbic acid (VITAMIN C) 500 mg tablet,chewable Take 1 tablet/chew tab (500 mg total) by mouth daily budesonide-formo teroL (Symbicort) 160-4.5 mcg/actuation inhaler Inhale 2 puffs 2 (two) times a day Rinse mouth with water after use. Do not swallow. 1 each 11 08/16/2023 cyanocobalamin (Vitamin B-12) 1,000 mcg tabletIndication s:Prevention of Vitamin B12 Deficiency Take 1 tablet (1,000 mcg total) by mouth daily ibuprofen (ADVIL,MOTRIN) 800 mg tablet Take 1 tablet (800 mg total) by mouth every 6 (six) hours as needed for pain naproxen (NAPROSYN) 500 mg tablet Take 1 tablet (500 mg total) by mouth 2 (two) times a day with meals 60 tablet 2 02/01/2024 traMADoL (ULTRAM) 50 mg tablet Take 1 tablet (50 mg total) by mouth every 8 (eight) hours as needed for pain vitamin D3-vitamin K2 25 mcg (1,000 unit)-90 mcg tablet,disintegr ating Take by mouth vitamin E (AQUASOL E) 400 unit capsule Take 1 capsule (400 Units total) by mouth daily amLODIPine (NORVASC) 10 mg tablet Take 1 tablet by mouth once daily 90 tablet 12/19/2023 4 atorvastatin (LIPITOR) 80 mg tablet Take 1 tablet (80 mg total) by mouth daily 90 tablet 3 02/26/2023 4 clopidogreL (PLAVIX) 75 mg tablet TAKE 1 TABLET BY MOUTH ONCE DAILY. APPOINTMENT REQUIRED FOR FUTURE REFILLS 30 tablet 01/14/2024 4 lisinopriL (PRINIVIL,ZESTRI L) 40 mg tablet Take 1 tablet (40 mg total) by mouth daily 90 tablet 3 02/26/2023 4 metoprolol (LOPRESSOR) 100 mg tablet Take 1 tablet (100 mg total) by mouth 2 (two) times a day 180 tablet 3 03/02/2023 4 documented as of this encounter Discharge Disposition Disposition Code Departure Means Destination Discharge to home or self care documented in this encounter Plan of Treatment Not on file documented as of this encounter Procedures Procedure Name Priority Date/Time Associated Diagnosis Comments XR PELVIS 1 OR 2 VIEWS Schedule Routine, Read Routine (OP Routine) 02/01/2024 10:57 AM INVASIVE PHYSICIAN Primary osteoarthritis of right knee documented in this encounter Results * XR Pelvis 1 or 2 Views (02/01/2024 10:57 AM INVASIVE PHYSICIAN) Anatomical Region Laterality Modality Body, Pelvis N/A Digital Radiogra phy Narrative 02/01/2024 10:59 AM INVASIVE PHYSICIAN An AP pelvis taken today reveals evidence of moderate degenerative changes of the bilateral hips. Alyson MADSEN IMG XR PROCEDURES Fin al Result documented in this encounter Visit Diagnoses Not on filedocumented in this encounter Care Teams Rn Digestive Relationship Specialty Start Date End Date Brice Ulrich MD PCP - General 04/18/17 documented as of this encounter
--- OUTSIDE RECORDS SUMMARY | 2024-12-06 19:52 | XMS_ITS | Encounter Summary ---
Author Organization [facility] Address [address] [place] [address] Care Team Providers Care Motor Grader Rough Grade Name Role Phone Brice Ulrich MD Primary Care Provider [phone] Reason for Visit * Reason Comments Asthma COPD Encounter Details Date Type Department Care Team (Late st Contact Info) Description 08/16/2023 10:45 AM CDT Office Visit [facility] Pulmonary at [address] [place] [address] Sloan Cramer MD [address] [place] [address] [address] [place] [address] Asthma-COPD overlap syndrome (HCC) (Primary Dx); Cigarette nicotine dependence in remission; Pulmonary hypertension (HCC); Class 2 obesity due to excess calories without serious comorbidity with body mass index (BMI) of 37.0 to 37.9 in adult Social History Tobacco Use Types Packs/Day Years Used Date Smoking Tobacco: Former Cigarettes 1 25 Smokeless Tobacco: Never Tobacco Cessation:Counseling Given: Not Answered Personal Safety Answer Date Recorded Have you ever been in or are you currently in a harmful physical or emotional relationship or is someone making you feel afraid or unsafe? 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 Gender Identity Not on file Sexual Orientation Not on file documented as of this encounter Last Filed Vital Signs Vital Sign Reading Time Taken Comments Blood Pressure 138/70 08/16/2023 10:44 AM CDT Pulse 72 08/16/2023 10:44 AM CDT Temperature 35.8 ??C (96.5 ??F) 08/16/2023 10:44 AM C DT Respiratory Rate 18 08/16/2023 10:44 AM CDT Oxygen Saturation 95% 08/16/2023 10:44 AM CDT Inhaled Oxygen Concentration - - Weight 139.5 kg (307 lb 8 oz) 08/16/2023 10:44 A M CDT Height 193 cm (6' 4 ) 08/16/2023 10:44 AM CDT Body Mass Index 37.43 08/16/2023 10:44 AM CDT documented in this encounter Ordered Prescriptions Prescription Sig Dispense Quantity Refills Last Filled Start Date End Date budesonide-formoter oL (Symbicort) 160-4.5 mcg/actuation inhaler Inhale 2 puffs 2 (two) times a day Rinse mouth with water after use. Do not swallow. 1 each 11 08/16/2023 documented in this encounter Progress Notes * Sloan Cramer MD - 08/16/2023 10:45 AM CDT Images from the original note were not included. PULMONARY CLINIC NOTE Visit Date: 08/16/2023 Chief Complaint: Presents today for Dyspnea on exertion HPI: Simeon Reed is a 57 y.o. male w/ PMH of CAD s/p NC in 2006 who presents on 08/16/2023 for evaluation of dyspnea on exertion. The patient reports dyspnea that is chronic, waxing and waning. He has noted some improved dyspnea with weight loss Interval History: The patient has been using Breo infrequently. He uses it as needed and believes it helps. Otherwise if he takes it daily, he feels his breathing is worse. He uses that Albuterol as needed and he notes benefit on each occasion. No exacerbations or respiratory illnesses in the interval Exposure History: Possible benzene exposure below his home. 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 Quit in 2006. Smoked 25 years about 1 ppd. Started smoking marijuana for pain and sleep Review of Systems: Pertinent positives notes in HPI. Otherwise a 10 pt review of systems is negative. OBJECTIVE: Physical Exam: Vitals: 08/16/23 1044 BP: 138/70 BP Location: Left arm Patient Position: Sitting Pulse: 72 Resp: 18 Temp: (!) 35.8 ??C (96.5 ??F) TempSrc: Temporal SpO2: 95% Weight: (!) 139.5 kg (307 lb 8 oz) Height: 193 cm (6' 4 ) General: appears comfortable in no apparent distress Eyes: anicteric, no redness or drainage, EOMI Neck: no thyromegaly or lymphadenopathy Cardiovascular: regular rate and rhythm, no murmurs, no edema or JVD Respiratory: End expiratory wheezing, non labored Gastrointestinal: abdomen is soft and non-tender, + bowel sounds Musculoskeletal: no joint swelling or tenderness Neurologic: No focal deficits Skin: warm and dry Data Review: Echo 12/07/2022: Normal LVEF, no significant valvular abnormality, RVSP estimated at 42-46 Normal hepatic function panel Pulmonary Functions Testing Results: 03/29/2023: Personally reviewed and my interpretation is notable for an FEV1/FVC ratio that is approaching the lower limit of normal. Accompanied by severe air trapping this likely reflects an obstructive ventilatory limitation. There is a significant positive bronchodilator response and normal diffusion capacity ASSESSMENT AND PLAN 1. Asthma-COPD overlap syndrome (HCC) - the patient's pulmonary function testing is actually more consistent with asthma - symptoms are still not well controlled - he has now tried anoro and breo - he seems to have tolerated DPI poorly - will try symbicort 2 puffs twice daily - may use albuterol as needed 2. Cigarette nicotine dependence in remission - the patient is not a candidate for low-dose CT scan 3. Pulmonary hypertension (CMS/HCC) (HCC) - this is mild by echo - given the patient's reported snoring and hypersomnolence I suspect underlying sleep apnea - we discussed undergoing sleep study, the patient and his expressed reluctance as he would not be interested in CPAP 4. Class 2 obesity due to excess calories without serious comorbidity with body mass index (BMI) of37.0 to 37.9 in adult - we again discussed exercise and weight loss and their benefit in asthma and respiratory function Sloan Cramer MD There may be syntax/grammatical errors in this note due to the use of voice recognition software. documented in this encounter Plan of Treatment Not on file documented as of this encounter Visit Diagnoses Diagnosis Asthma-COPD overlap syndrome (HCC)- Primary Cigarette nicotine dependence in remission Pulmonary hypertension (HCC) Other chronic pulmonary heart diseases Class 2 obesity due to excess calories without serious comorbidity with body mass index (BMI) of 37.0 to 37.9 in adult documented in this encounter Discontinued Medications Medication Sig Discontinue Reason Start Date End Da te fluticasone furoate-vilanteroL (BREO ELLIPTA) 100-25 mcg/dose diskus inhaler Inhale 1 puff daily Rinse mouth with water after use. Do not swallow. Alternate therapy 05/17/2023 08/16/2023 documented as of this encounter Care Teams Motor Grader Rough Grade Relationship Specialty Start Date End Date Brice Ulrich MD PCP - General 04/18/17 documented as of this encounter
--- OUTSIDE RECORDS SUMMARY | 2024-12-06 19:52 | XMS_ITS | Encounter Summary ---
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 Gender Identity Not on file Sexual Orientation Not on file documented as of this encounter Last Filed Vital Signs Vital Sign Reading Time Taken Comments Blood Pressure 136/86 06/29/2023 1:19 PM CDT Pulse 91 06/29/2023 1:19 PM CDT Temperature 36.1 ??C (97 ??F) 06/29/2023 1:19 PM CDT Respiratory Rate 18 06/29/2023 1:19 PM CDT Oxygen Saturation 98% 06/29/2023 1:19 PM CDT Inhaled Oxygen Concentration - - Weight 136.1 kg (300 lb) 06/29/2023 1:19 PM CDT Height 193 cm (6' 4 ) 06/29/2023 1:19 PM CDT Body Mass Index 36.52 06/29/2023 1:19 PM CDT documented in this encounter Discharge Instructions * Discharge Instructions* Ivette Thompson PA - 06/29/2023 1:45 PM CDT You were seen today for pain, swelling, erythema to your right elbow. Your physical exam at this time was consistent with an effusion and a localized skin infection. I do not believe at this time this is a joint infection, but we have gathered the appropriate labs to rule this out. We will update you should the lab work show anything concerning. In the meantime I recommend you take ibuprofen to help with pain and inflammation. I am also sending you home with an antibiotic. Please take this twice per day for the next 5 days with food. Please return to the ER should you notice trouble breathing, fevers, chills, uncontrollable vomiting. It was a pleasure taking care of you today. We thank you for entrusting our team with your healthcare needs * Attachments The following attachments cannot be sent through Care Everywhere. * Bursitis (Norwegian) documented in this encounter Medications at Time of Discharge albuterol HFA (Proventil HFA) 90 mcg/actuation inhaler Inhale 2 puffs every 4 (four) hours as needed for wheezing or shortness of breath 6.7 g 5 05/24/2023 ascorbic acid (VITAMIN C) 500 mg tablet,chewable Take 1 tablet/chew tab (500 mg total) by mouth daily cyanocobalamin (Vitamin B-12) 1,000 mcg tabletIndication s:Prevention of Vitamin B12 Deficiency Take 1 tablet (1,000 mcg total) by mouth daily ibuprofen (ADVIL,MOTRIN) 800 mg tablet Take 1 tablet (800 mg total) by mouth every 6 (six) hours as needed for pain vitamin E (AQUASOL E) 400 unit capsule Take 1 capsule (400 Units total) by mouth daily cefadroxil (DURICEF) 500 mg capsule Take 1 capsule (500 mg total) by mouth 2 (two) times a day for 5 days 10 capsule 06/29/2023 3 amLODIPine (NORVASC) 10 mg tablet Take 1 tablet (10 mg total) by mouth daily 90 tablet 3 10/17/2022 4 atorvastatin (LIPITOR) 80 mg tablet Take 1 tablet (80 mg total) by mouth daily 90 tablet 3 02/26/2023 4 clopidogreL (PLAVIX) 75 mg tablet Take 1 tablet by mouth once daily 90 tablet 05/25/2023 3 fluticasone furoate-vilanter oL (BREO ELLIPTA) 100-25 mcg/dose diskus inhaler Inhale 1 puff daily Rinse mouth with water after use. Do not swallow. 30 each 05/17/2023 3 lisinopriL (PRINIVIL,ZESTRI L) 40 mg tablet Take 1 tablet (40 mg total) by mouth daily 90 tablet 3 02/26/2023 4 metoprolol (LOPRESSOR) 100 mg tablet Take 1 tablet (100 mg total) by mouth 2 (two) times a day 180 tablet 3 03/02/2023 4 documented as of this encounter Ordered Prescriptions Prescription Sig Dispense Quantity Refills Last Filled Start Date End Date cefadroxil (DURICEF) 500 mg capsule Take 1 capsule (500 mg total) by mouth 2 (two) times a day for 5 days 10 capsule 06/29/2023 3 documented in this encounter Discharge Disposition Disposition Code Departure Means Destination Comment s Discharge to home or self care documented in this encounter ED Notes * Ivette Thompson PA - 06/29/2023 2:45 PM CDT HPI Chief Complaint Patient presents with Wound Check 57-year-old A&O x4 male patient with past medical history of hypertension, [place], hyperlipidemia presents with concerns of right elbow pain and swelling. He states he bumped his elbow on a fence 1 week prior, has had increased swelling and erythema since. He denies fever, chills, dyspnea, chest pain, nausea/vomiting/diarrhea. Has full range of motion to this joint without issue. He was seen at an urgent care for this, diagnosed with bursitis after imaging, told to follow up here for arthrocentesis Patient History: Patient Active Problem List Diagnosis Date Noted Primary hypertension 10/17/2022 Coronary artery disease involving [place] coronary artery of [place] heart 02/26/2020 Elevated LDL cholesterol level 02/26/2020 Past Medical History: Diagnosis Date Hypercholesteremia Hypertension Myocardial infarction (CMS/HCC) (HCC) Past Surgical History: Procedure Laterality Date CORONARY STENT PLACEMENT 2006 Family History Problem Relation Age of Onset Lung disease Mother Social History Tobacco Use Smoking status: Former Packs/day: 1.00 Years: 25.00 Pack years: 25.00 Types: Cigarettes Smokeless tobacco: Never Substance and Sexual Activity Alcohol use: Not on file Drug use: Not Currently Types: Marijuana Sexual activity: Defer Social History Social History Narrative Not on file Review of Systems Review of Systems Musculoskeletal: Positive for arthralgias. Skin: Positive for rash. All other systems reviewed and are negative. Physical Exam ED Triage Vitals [06/29/23 1319] Temp Pulse Resp BP SpO2 36.1 ??C (97 ??F) 91 18 136/86 98 % Temp src Heart Rate Source Patient Position BP Location FiO2 (%) -- -- -- -- -- Height Height Method Weight Weight Method 1.93 m (6' 4 ) -- 136.1 kg (300 lb) -- Physical Exam Vitals and nursing note reviewed. Constitutional: General: He is not in acute distress. Appearance: Normal appearance. He is obese. He is not ill-appearing or toxic-appearing. HENT: Head: Normocephalic and atraumatic. Eyes: Extraocular Movements: Extraocular movements intact. Pupils: Pupils are equal, round, and reactive to light. Cardiovascular: Rate and Rhythm: Normal rate. Pulses: Normal pulses. Heart sounds: Normal heart sounds. No murmur heard. No friction rub. No gallop. Pulmonary: Effort: Pulmonary effort is normal. No respiratory distress. Breath sounds: Normal breath sounds. No stridor. No wheezing, rhonchi or rales. Abdominal: Tenderness: There is no abdominal tenderness. Musculoskeletal: General: Swelling and tenderness present. Normal range of motion. Cervical back: Normal range of motion. No tenderness. Skin: General: Skin is warm and dry. Capillary Refill: Capillary refill takes less than 2 seconds. Findings: Erythema present. No bruising. Neurological: General: No focal deficit present. Mental Status: He is alert and oriented to person, place, and time. MDM Medical Decision Making 57-year-old A&O x4 male patient with past medical history of hypertension, [place], hyperlipidemia presents with concerns of continued right elbow swelling. He states 1 week prior he bumped his elbow against a fence, has had continued pain and swelling since. Was seen at an urgent Care, plain films done, showed bursitis. He was referred here for arthrocentesis. He denies fevers, chills, dizziness,dyspnea, chest pain, nausea/vomiting/diarrhea. He is not noticed drainage from the site. No previous swelling to the site before. Physical exam does show a swollen bursa to his right elbow. It is erythemic and mildly warm. Patient has full range of motion to right elbow without any pain elicited. There is no cogwheeling noted. Right hand is neurovascularly intact. There is no swelling, erythema, rashes elsewhere. Differential diagnosis includes but not limited to: Bursitis, cellulitis, erysipelas. Doubt gout. Doubt septic arthritis Plan: Physical exam, arthrocentesis ED course: Joint drained without issue. He notes immediate improvement in pain. We will send off fluid for Gram stain analysis, CBC, crystal analysis. At this time, due to his lack of pain and full range of motion to his joints I do not believe this is related to septic arthritis. We will dischargehim on cefadroxil to cover for any overlying cellulitis. We will update him should his synovial fluid results returned abnormal. All questions answered at this time. Strict return precautions given. Patient comfortable with discharge. Advised to take ibuprofen as needed to help with pain and inflammation Amount and/or Complexity of Data Reviewed Labs: ordered. Risk OTC drugs. Prescription drug management. Final diagnoses: Olecranon bursitis of right elbow Ivette Thompson PA 06/29/231913 Cosigned by Keagan Herrera MD at 06/29/2023 7:33 PM CDT * Junie Hernández RN - 06/29/2023 1:18 PM CDT Patient arrives for evaluation of a swollen area to his right elbow. Patient states that he hit it on an electric fence 1 week ago. documented in this encounter Miscellaneous Notes * ED Procedure Note - Ivette Thompson PA - 06/29/2023 2:45 PM CDTAssociated Order(s): Arthrocentesis Procedure Arthrocentesis Date/Time: 06/29/2023 7:14 PM Performed by: Ivette Thompson PA Authorized by: Keagan Herrera MD [place] Protocol: RN Notified of Procedure: yes Informed consent: Risks, benefits, alternatives discussed Location: Location: Elbow Elbow: R elbow Anesthesia (see MAR for exact dosages): Anesthesia method: None Procedure details: Preparation: Patient was prepped and draped in usual sterile fashion Needle gauge: 22 G Ultrasound guidance: no Approach: Lateral Aspirate amount: 15 Aspirate characteristics: Serous and yellow Specimen collected: yes Post-procedure details: Dressing: Adhesive bandage Patient tolerance of procedure: Tolerated well, no immediate complications Ivette Thompson PA 06/29/231913 * Result Encounter Note - Guille Finnegan PA - 06/29/2023 2:45 PM CDT Final report shows susceptible to cephalosporins. documented in this encounter Plan of Treatment Not on file documented as of this encounter Procedures Procedure Name Priority Date/Time Associated Diagnosis Comments ED JOINT ASPIRATION/INJECTIO N Routine 06/29/2023 7:14 PM CDT CRYSTAL ANALYSIS, BODY FLUID STAT 06/29/2023 2:50 PM CDT CELL DIFFERENTIAL, BODY FLUID Routine 06/29/2023 2:50 PM CDT CELL COUNT W/REFLEX DIFFERENTIAL, BODY FLUID Routine 06/29/2023 2:50 PM CDT AEROBIC CULTURE AND GRAM STAIN Routine 06/29/2023 2:50 PM CDT documented in this encounter Results * Arthrocentesis (06/29/2023 7:14 PM CDT) Narrative Ivette Thompson PA - 06/29/2023 7:14 PM CDT Ivette Thompson PA ? 06/29/2023 ??7:14 PM Arthrocentesis Date/Time: 06/29/2023 7:14 PM Performed by: Ivette Thompson PA Authorized by: Keagan Herrera MD ?? [place] Protocol: ??RN Notified of Procedure: yes ?Informed consent: ??Risks, benefits, alternatives discussed Location: ??Location: ??Elbow ??Elbow: ??R elbow Anesthesia (see MAR for exact dosages): ??Anesthesia method: ??None Procedure details: ??Preparation: Patient was prepped and draped in usual sterile fashion ?Needle gauge: ??22 G ??Ultrasound guidance: no ?Approach: ??Lateral ??Aspirate amount: ??15 ??Aspirate characteristics: ??Serous and yellow ??Specimen collected: yes ?? Post-procedure details: ??Dressing: ??Adhesive bandage ??Patient tolerance of procedure: ??Tolerated well, no immediate complications us Keagan Herrera MD IN CLINIC/BEDSIDE ORDERABLE S Final Result * Cell Differential, Body Fluid (06/29/2023 2:50 PM CDT) Total cells diffed 100 % C ERNER MARINA ([place]) Comment: Interpretive Data Unless otherwise specified, the reference range and other method performance specifications have not been established for CSF/Body Fluid tests. ??The test results should be integrated into the clinical context for interpretation. Current interpretive data was last revised on 2019. Neutrophils, fld 90 % [facility] ([place]) Lymphs, fld 10 % [facility] ([place]) Fluid 06/29/2023 2:50 PM CDT 06/29/2023 4:08 PM CDT Ivette MADSEN LAB BODY FLUIDS AND STOOLS ORDE RABLES Final Result Performing Organization Address City/[facility]/ZIP Co de Phone Number MARIVEL [facility] ([place]) [address] [facility] [place] [address] * Crystal Analysis, Body Fluid (06/29/2023 2:50 PM CDT) Specimen type, fld Synovial [facility] ([place]) Crystals None Seen [facility] ([place]) Fluid 06/29/2023 2:50 PM CDT 06/29/2023 3:06 PM CDT Ivette MADSEN LAB BODY FLUIDS AND STOOLS ORDE RABLES Final Result Performing Organization Address [facility] Co de Phone Number MARIVEL [facility] ([place]) [address] [facility] [place] [address] * Cell count with reflex to differential, body fluid (06/29/2023 2:50 PM CDT) Specimen type, fld Synovial [facility] ([place]) Color, fld Other [facility] ([place]) Comment:Randolph Clarity, fld Turbid [facility] ([place]) Nucleated cells, fld 937,400 /cumm [facility] ([place]) Comment: Interpretive Data Unless otherwise specified, the reference range and other method performance specifications have not been established for CSF/Body Fluid tests. ??The test results should be integrated into the clinical context for interpretation. Current interpretive data was last revised on 2019. RBC, fld 400,000 /cumm [facility] ([place]) Fluid 06/29/2023 2:50 PM CDT 06/29/2023 4:08 PM CDT us Ivette MADSEN [facility] BODY FLUIDS AND STOOLS CAMILA WILLIS Final Result [facility] ([place]) 1 [facility] Department of Laboratories [place], [place] [id number] * (ABNORMAL) Aerobic culture and gram stain Aspirate Elbow, right (06/29/2023 2:50 PM CDT) Direct Specimen Exam Stain: Abundant polymorphonuclear leukocytes seen. Rare Gram Positive Cocci Slide reviewed. MARIVEL GRAY ([place]) Comment:Testing performed by : [facility], [address] [place]., [address] Report Final Report: Few Streptococcus agalactiae (Group B Streptococci) (.) MARIVEL GRAY ([place]) Comment:Testing performed by : [facility], [address] [place] [address]., [id number] Organism STREPTOCOCCUS AGALACTIAE (GROUP B STREPTOCOCCI) MARIVEL GRAY ([place]) Aspirate (Elbow, right) 06/29/2023 2:50 PM CDT 06/29/2023 6:35 PM CDT Narrative MARIVEL GRAY ([place]) - 07/02/2023 2:30 PM CDT Fluid specimen received. Testing performed by [facility] Microbiology Laboratory ([phone]) Specimens submitted from normally sterile body sites will have all bacterial morphotypes identified. ??Specimens that contain grossly mixed praneeth and/or are from body sites that are not normally sterile will be examined for Staphylococcus aureus, Pseudomonas aeruginosa, beta-hemolytic strep, vancomycin-resistant Enterococcus and fungus. ??If any of these are isolated, the organism will be reported. Current interpretive data was last revised on 2017. Organism Antibiotic Method Susceptibility Streptococcus agalactiae (Gr oup B Streptococci) Penicillin (WOO) (WOO) INTERPRETATION Susceptible Streptococcus agalactiae (Gr oup B Streptococci) Ceftriaxone (WOO) (WOO) INTERPRETATION Susceptible Streptococcus agalactiae (Gr oup B Streptococci) Clindamycin (WOO) INTERPRETATION Susceptible Streptococcus agalactiae (Gr oup B Streptococci) Linezolid (WOO) INTERPRETATION Susceptible Streptococcus agalactiae (Gr oup B Streptococci) Vancomycin (WOO) INTERPRETATION Susceptible us Ivette MADSEN LAB MICROBIOLOGY - GENERAL CAMILA WILLIS Final Result MARIVEL GRAY ([place]) 1 [facility] Department [place] [address] documented in this encounter Visit Diagnoses Diagnosis Olecranon bursitis of right elbow- Primary documented in this encounter Care Teams Germination Worker Relationship Specialty Start Date End Date Brice Ulrich MD PCP - General 04/18/17 documented as of this encounter
--- OUTSIDE RECORDS SUMMARY | 2024-12-06 19:52 | XMS_ITS | Encounter Summary ---
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 Gender Identity Not on file Sexual Orientation Not on file documented as of this encounter Progress Notes * Temi Moore MA - 02/04/2024 10:54 AM CDT Ordered lipid liver panel documented in this encounter Plan of Treatment Not on file documented as of this encounter Results * Hepatic function panel (03/05/2024 9:45 AM CDT) Bilirubin, total 0.7 0.1 - 1.2 mg/dL Bilirubin, direct <0.2 0.1 - 0.3 mg/dL [facility] ([place]) Protein, pl 6.9 6.5 - 8.5 g/dL [facility] ([place]) Albumin 4.2 3.5 - 5.0 g/dL [facility] ([place]) Alk phos 69 40 - 130 Units/L [facility] ([place]) ALT 29 7 - 55 Units/L [facility] ([place]) AST 26 10 - 50 Units/L [facility] ([place]) Comment:Slightly Hemolyzed S pecimen Blood 03/05/2024 9:45 AM CDT 03/05/2024 10:19 AM CDT us Cristian Aguilar MD LAB BLOOD ORDERABLES Final Re sult [facility] ([place]) 1 [facility] Department [place] [address] * Lipid panel (03/05/2024 9:45 AM CDT) Pathologist [facility] Cholesterol 130 30 - 199 mg/dL Comment: Interpretive Data [...] Data was last revised on 2018. Triglycerides 69 <=149 mg/dL [facility] ([place]) Comment: Interpretive Data Ages < or [...] Data was last revised on 2018. HDL 48 >=40 mg/dL MARIVEL CARRASCO) Comment: Interpretive Data [...] was last revised on 2018. LDL, calculated 68 <=129 mg/dL MARIVEL CARRASCO) Comment: Interpretive Data Ages [...] was last revised on 2018. Non-HDL Cholesterol 82 mg/dL MARIVEL GRAY ([place]) Comment: Interpretive Data Ages < or = [...] was last revised on 2018. Chol/HDL ratio 3 JOSE [facility] ([place]) Blood 03/05/2024 9:45 AM CDT 03/05/2024 10:19 AM CDT Cristian Aguilar MD LAB BLOOD ORDERABLES Final Re sult [facility] ([place]) [address] [facility] Department [place] [address] documented in this encounter Visit Diagnoses Diagnosis High cholesterol- Primary Pure hypercholesterolemia documented in this encounter Care Teams Paleobotanist Relationship Specialty Start Date End Date Brice Ulrich MD PCP - General 04/18/17 documented as of this encounter
--- OUTSIDE RECORDS SUMMARY | 2024-12-06 19:52 | XMS_ITS | Encounter Summary ---
Author Organization [facility] Address [address] [place] [address] Care Team Providers Care Plastic Sewer Name Role Phone Brice Ulrich MD Primary Care Provider [phone] Reason for Referral * Procedure (Routine) - Authorized Specialty Diagnoses / Procedures Referred By Contac t Referred To Contact Diagnoses Primary osteoarthritis of right knee Procedures Large Joint (Hip, Knee, Shoulder) Injection: R knee Alyson Barbour PA [address] [facility] [address] [address] [place] [address] Phone: tel: fax: [facility] Referral ID Status Reason Start Date Expiration Date V isits Requested Visits Authorized [id number] Authorized 02/01/2024 03/02/2025 1 1 UNITY REINVESTMENT ACT OFFICER * Diagnostic Imaging (Routine) - Closed Specialty Diagnoses / Procedures Referred By Contac t Referred To Contact Diagnoses Right knee pain, unspecified chronicity Procedures XR Pelvis 1 or 2 Views Alyson Barbour PA [address] [facility] [address] [address] [place] [address] Phone: tel: fax: Referral ID Status Reason Start Date Expiration Date Visits Re quested Visits Authorized [id number] Closed 02/01/2024 03/02/2025 1 1 UNITY REINVESTMENT ACT OFFICER Reason for Visit * Reason Comments Pain Encounter Details Date Type Department Care Team (Late st Contact Info) Description 02/01/2024 11:15 AM COMMUNITY REINVESTMENT ACT OFFICER Office Visit [facility] Orthopedics and Sports Medicine [address] [facility] [address] [place] [phone] Alyson Barbour PA [address] [facility] [address] [place] [address] Primary osteoarthritis of right knee (Primary Dx) Social History Tobacco Use Types [...] on file Legal Sex Male 12:13 PM COMMUNITY REINVESTMENT ACT OFFICER Gender Identity Not on file Sexual Orientation Not on file documented as of this encounter Last Filed Vital Signs Vital Sign Reading Time Taken Comments Blood Pressure 132/84 02/01/2024 11:00 AM COMMUNITY REINVESTMENT ACT OFFICER Pulse 70 02/01/2024 11:00 AM COMMUNITY REINVESTMENT ACT OFFICER Temperature - - Respiratory Rate - - Oxygen Saturation - - Inhaled Oxygen Concentration - - Weight 129.7 kg (286 lb) 02/01/2024 11:00 AM COMMUNITY REINVESTMENT ACT OFFICER Height 193 cm (6' 4 ) 02/01/2024 11:00 AM COMMUNITY REINVESTMENT ACT OFFICER Body Mass Index 34.81 02/01/2024 11:00 AM COMMUNITY REINVESTMENT ACT OFFICER documented in this encounter Ordered Prescriptions Prescription Sig Dispense Quantity Refills Last Filled Start Date End Date naproxen (NAPROSYN) 500 mg tablet Take 1 tablet (500 mg total) by mouth 2 (two) times a day with meals 60 tablet 2 02/01/2024 documented in this encounter Progress Notes * Alyson Barbour PA - 02/01/2024 11:15 AM CSTAssociated Order(s): Large Joint (Hip, Knee, Shoulder) Injection: R knee Post-Procedure Diagnose(s): Primary osteoarthritis of right knee Images from the original note were not included. NEW PATIENT VISIT Subjective CHIEF COMPLAINT He had concerns including Pain of the Right Knee. HISTORY OF PRESENT ILLNESS Mr. Reed is a pleasant 58 y.o. male who presents to clinic with the complaint of right knee pain. Although he has had intermittent discomfort, the pain has been present for three months now, initially starting after he slipped in a pile of horse manure. He localizes the pain to the medial aspectof the knee, describing it as achy and rating it at an 8/10. The pain is worse with movement and improves with rest. He has tried wearing a brace but states it makes his symptoms worse. He has been taking ibuprofen and applying salon pas with mild relief. He was recently seen by his PCP and provided with a prescription for Tramadol that he only takes at night. He denies any other complaints at this time. Pain Assessment Pain Assessment: 0-10 Pain Score: 8 PAST MEDCIAL HISTORY He has a past medical history of Hypercholesteremia, Hypertension, and Myocardial infarction (HCC). PAST SURGICAL HISTORY He has a past surgical history that includes Coronary stent placement (2006). MEDICATIONS He has a current medication list which includes the following prescription(s): albuterol hfa, amlodipine, ascorbic acid, atorvastatin, budesonide-formoterol, clopidogrel, cyanocobalamin, ibuprofen, lisinopril, metoprolol, naproxen, tramadol, vitamin d3-vitamin k2, and vitamin e. ALLERGIES He has no known allergies. SOCIAL HISTORY He reports that he has quit smoking. His smoking use included cigarettes. He has a 25 pack-year smoking history. He has never used smokeless tobacco. He reports that he does not currently use drugs after having used the following drugs: Marijuana. No alcohol history on file. FAMILY HISTORY His family history includes Lung disease in his mother. REVIEW OF SYSTEMS Review of Systems Constitutional: Negative for appetite change and fever. HENT: Negative for drooling, facial swelling and voice change. Eyes: Negative for discharge. Respiratory: Negative for apnea and wheezing. Cardiovascular: Negative for chest pain and palpitations. Gastrointestinal: Negative for abdominal distention and abdominal pain. Endocrine: Negative for polydipsia. Genitourinary: Negative for flank pain. Musculoskeletal: Positive for arthralgias, gait problem, joint swelling and myalgias. Skin: Negative for color change and rash. Neurological: Negative for speech difficulty. Hematological: Does not bruise/bleed easily. Psychiatric/Behavioral: Negative for hallucinations. Objective PHYSICAL EXAM BP 132/84 Pulse 70 Ht 193 cm (6' 4 ) Wt 129.7 kg (286 lb) BMI 34.81 kg/m?? Right knee Inspection Erythema: absent Cellulitis: absent Swelling: mild Surgical scar/wound: absent. Skin temperature: normal Alignment: neutral Gait: antalgic Palpation Tenderness: present. The tenderness is located in the condyle, patella and tibial tubercle. Patellar tracking: normal Crepitus: positive Patella grind: positive Subluxation: negative Range of motion The patient has reduced range of motion of the right knee. The patient has pain with range of motion of the right knee. Extensor lag: no. Stability AP stability: stable ML stability: stable Varus stress at 0 degrees: stable Valgus stress at 0 degrees: stable Varus stress at 30 degrees: stable Valgus stress at 30 degrees: stable Pivot shift: negative Margaux: negative Anterior drawer: negative Posterior drawer: negative Strength The patient has 5/5 strength thoughout right knee. Neurovascular The patient has normal vascular on the right side of their body. The patient has normal sensation on the right side of their body. Special tests Hector: medial negative Hector: lateral negative Patellar apprehension: negative Left knee Palpation Patellar tracking: normal Crepitus: negative Patella grind: negative Subluxation: negative Special tests Hector: medial negative Hector: lateral negative REVIEW OF X-RAYS/STUDIES/LABS XR Knee Right 4 or More Views Radiographs taken of the right knee today reveal moderate degenerative changes with subchondral sclerosis, osteophyte formation, and diminished joint space. XR Pelvis 1 or 2 Views An AP pelvis taken today reveals evidence of moderate degenerative changes of the bilateral hips. Assessment/Plan Simeon was seen today for pain. Diagnoses and all orders for this visit: Primary osteoarthritis of right knee - XR Knee Right 4 or More Views - XR Pelvis 1 or 2 Views Other orders - naproxen (NAPROSYN) 500 mg tablet; Take 1 tablet (500 mg total) by mouth 2 (two) times a day with meals Large Joint (Hip, Knee, Shoulder) Injection: R knee Performed by: Alyson Barbour PA Authorized by: Alyson Barbour PA Large Joint Injection/Aspiration: Consent Given by: Patient Site marked: the procedure site was marked Timeout: prior to procedure the correct patient, procedure, and site was verified Verbal consent obtained: Yes Supporting Documentation: Indications: Pain Procedure Details: Location: Knee Site: R knee Needle Size: 22 G Approach: Anterolateral Ultrasound guided: No Fluroscopic guidance: No Medications: 80 mg methylPREDNISolone acetate 80 mg/mL; 3 mL lidocaine 20 mg/mL (2 %) Patient tolerance: Patient tolerated the procedure well with no immediate complications PLAN I discussed with Mr. Reed the nature of his condition and treatment options. He has moderate osteoarthritis of his right knee. I recommended conservative management at this time including antiinflammatories, activity modification, and intraarticular steroid injection. I gave him an intraarticular steroid injection into his right knee today which He tolerated well. I have also sent a prescription for Naprosyn to his pharmacy to begin taking daily in place of his ibuprofen. Shall his symptoms fail to improve over the next two weeks, he should contact the office. He may return to clinic in 3 months for reevaluation and possible repeat injection. He should call the office should He have any concerns or questions. CALE Resendez Cosigned by David Soriano MD at 02/11/2024 2:37 PM CDT UNITY REINVESTMENT ACT OFFICER documented in this encounter Plan of Treatment Not on file documented as of this encounter Procedures Procedure Name Priority Date/Time Associated Diagnosis Comments IN ARTHROCENTESIS ASPIR&/INJ MAJOR JT/BURSA W/O US Routine 02/01/2024 11:15 AM COMMUNITY REINVESTMENT ACT OFFICER Primary osteoarthritis of right knee XR KNEE RIGHT 4 OR MORE VIEWS Schedule Routine, Read Routine (OP Routine) 02/01/2024 10:58 AM COMMUNITY REINVESTMENT ACT OFFICER Primary osteoarthritis of right knee XR PELVIS 1 OR 2 VIEWS Schedule Routine, Read Routine (OP Routine) 02/01/2024 10:57 AM COMMUNITY REINVESTMENT ACT OFFICER Primary osteoarthritis of right knee documented in this encounter Results * IN ARTHROCENTESIS ASPIR&/INJ MAJOR JT/BURSA W/O US (02/01/2024 11:15 AM COMMUNITY REINVESTMENT ACT OFFICER) Narrative David Soriano MD - 02/01/2024 11:15 AM COMMUNITY REINVESTMENT ACT OFFICER Alyson Barbour PA ? 02/01/2024 11:44 AM Large Joint (Hip, Knee, Shoulder) Injection: R knee Performed by: Alyson Barbour PA Authorized by: Alyson Barbour PA ?? Large Joint Injection/Aspiration: ??Consent Given by: ??Patient ??Site marked: the procedure site was marked ?Timeout: prior to procedure the correct patient, procedure, and site was verified ?Verbal consent obtained: Yes ?? Supporting Documentation: ??Indications: ??Pain Procedure Details: ??Location: ??Knee ??Site: ??R knee ??Needle Size: ??22 G ??Approach: ??Anterolateral ??Ultrasound guided: No ?Fluroscopic guidance: No ?Medications: ??80 mg methylPREDNISolone acetate 80 mg/mL; 3 mL lidocaine 20 mg/mL (2 %) ??Patient tolerance: ??Patient tolerated the procedure well with no immediate complications Alyson MADSEN IN CLINIC/BEDSIDE ORD ERABLES Final Result * XR Knee Right 4 or More Views (02/01/2024 10:58 AM COMMUNITY REINVESTMENT ACT OFFICER) Anatomical Region Laterality Modality Lower Extremities, Knee Right Digital Radiography Narrative 02/01/2024 10:59 AM COMMUNITY REINVESTMENT ACT OFFICER Radiographs taken of the right knee today reveal moderate degenerative changes with subchondral sclerosis, osteophyte formation, and diminished joint space. Aylson MADSEN IMG XR PROCEDURES Fin al Result * XR Pelvis 1 or 2 Views (02/01/2024 10:57 AM COMMUNITY REINVESTMENT ACT OFFICER) Anatomical Region Laterality Modality Body, Pelvis N/A Digital Radiogra phy Narrative 02/01/2024 10:59 AM COMMUNITY REINVESTMENT ACT OFFICER An AP pelvis taken today reveals evidence of moderate degenerative changes of the bilateral hips. Alyson MADSEN IMG XR PROCEDURES Fin al Result documented in this encounter Visit Diagnoses Diagnosis Primary osteoarthritis of right knee- Primary documented in this encounter Administered Medications Inactive Administered Medications - up to 3 most recent administrations Medication Order MAR Action Action Date Dose Rate Site lidocaine (XYLOCAINE) 20 mg/mL (2 %) injection 3 mL 3 mL, One-Time Injection, Starting on Sun02/01/24 at 1115, For 1 dose, Indications: Administration of Local AnesthesiaIndications:Administ ration of Local Anesthesia Given 02/01/2024 11:15 AM COMMUNITY REINVESTMENT ACT OFFICER 3 mL Right Knee methylPREDNISolone acetate (DEPO-medrol) injection 80 mg 80 mg, intra-articular, One-Time Injection, Starting on Sun02/01/24 at 1115, For 1 doseIndications:Primary osteoarthritis of right knee Given 02/01/2024 11:15 AM COMMUNITY REINVESTMENT ACT OFFICER 80 mg Right Knee documented in this encounter Care Teams Plastic Sewer Relationship Specialty Start Date End Date Brice Ulrich MD PCP - General 04/18/17 documented as of this encounter
--- OUTSIDE RECORDS SUMMARY | 2024-12-06 19:52 | XMS_ITS | Encounter Summary ---
Author Organization [facility] Address [address] [place] [address] Care Team Providers Care Retina Subspecialist Name Role Phone Brice Ulrich MD Primary Care Provider [phone] Reason for Visit * Reason Comments Follow-up Encounter Details Date Type Department Care Team (Late st Contact Info) Description 01/24/2024 1:30 PM MARKETING SUPPORT MANAGER Office Visit [facility] at [address] [phone] Cristian Aguilar MD [address] [place] [id number] Primary hypertension (Primary Dx); Coronary artery disease involving mechoopda coronary artery of mechoopda heart without angina pectoris; Elevated LDL cholesterol level Social History Tobacco [...] on file Legal Sex Male 12:13 PM MARKETING SUPPORT MANAGER Gender Identity Not on file Sexual Orientation Not on file documented as of this encounter Last Filed Vital Signs Vital Sign Reading Time Taken Comments Blood Pressure 131/87 01/24/2024 1:31 PM MARKETING SUPPORT MANAGER Pulse 80 01/24/2024 1:31 PM MARKETING SUPPORT MANAGER Temperature - - Respiratory Rate 18 01/24/2024 1:31 PM MARKETING SUPPORT MANAGER Oxygen Saturation - - Inhaled Oxygen Concentration - - Weight 130.8 kg (288 lb 4.8 oz) 01/24/2024 1:31 PM MARKETING SUPPORT MANAGER Height 193 cm (6' 4 ) 01/24/2024 1:31 PM MARKETING SUPPORT MANAGER Body Mass Index 35.09 01/24/2024 1:31 PM MARKETING SUPPORT MANAGER documented in this encounter Progress Notes * Cristian Aguilar MD - 01/24/2024 1:30 PM CST Cardiology note Reason for Office Visit: Follow-up on CAD Chief Complaint Patient presents with Follow-up History of Present Illness: Simeon Reed is a 58 y.o. male who was last seen about 13 months ago. Now having big issues withpain in the right knee. It looks to be quite swollen today and has decreased range of motion. Supposed to see Dr. Soriano soon for possible surgery. I recommended that he gets it done so he can walk a little bit more. He has actually lost about 13 lb over the past month. Review of Systems: Histories: Past Medical History: Diagnosis Date Hypercholesteremia Hypertension Myocardial infarction (HCC) Past Surgical History: Procedure Laterality Date CORONARY STENT PLACEMENT 2006 Family History Problem Relation Age of Onset Lung disease Mother Social History Tobacco Use Smoking status: Former Current packs/day: 1.00 Average packs/day: 1 pack/day for 25.0 years (25.0 ttl pk-yrs) Types: Cigarettes Smokeless tobacco: Never Substance and Sexual Activity Drug use: Not Currently Types: Marijuana Sexual activity: Defer Alcohol Use: Not on file Allergies: No Known Allergies Medications: Current Outpatient Medications Medication Sig Dispense Refill amLODIPine (NORVASC) 10 mg tablet Take 1 tablet by mouth once daily 90 tablet 0 ascorbic acid (VITAMIN C) 500 mg tablet,chewable Take 1 tablet/chew tab (500 mg total) by mouth daily atorvastatin (LIPITOR) 80 mg tablet Take 1 tablet (80 mg total) by mouth daily 90 tablet 3 clopidogreL (PLAVIX) 75 mg tablet TAKE 1 TABLET BY MOUTH ONCE DAILY. APPOINTMENT REQUIRED FOR FUTURE REFILLS 30 tablet 0 cyanocobalamin (Vitamin B-12) 1,000 mcg tablet Take 1 tablet (1,000 mcg total) by mouth daily ibuprofen (ADVIL,MOTRIN) 800 mg tablet Take 1 tablet (800 mg total) by mouth every 6 (six) hours asneeded for pain lisinopriL (PRINIVIL,ZESTRIL) 40 mg tablet Take 1 tablet (40 mg total) by mouth daily 90 tablet 3 metoprolol (LOPRESSOR) 100 mg tablet Take 1 tablet (100 mg total) by mouth 2 (two) times a day 180 tablet 3 traMADoL (ULTRAM) 50 mg tablet Take 1 tablet (50 mg total) by mouth every 8 (eight) hours as neededfor pain vitamin E (AQUASOL E) 400 unit capsule Take 1 capsule (400 Units total) by mouth daily albuterol HFA (Proventil HFA) 90 mcg/actuation inhaler Inhale 2 puffs every 4 (four) hours as needed for wheezing or shortness of breath (Patient not taking: Reported on 01/24/2024) 6.7 g 5 budesonide-formoteroL (Symbicort) 160-4.5 mcg/actuation inhaler Inhale 2 puffs 2 (two) times a day Rinse mouth with water after use. Do not swallow. (Patient not taking: Reported on 01/24/2024) 1 each11 vitamin D3-vitamin K2 25 mcg (1,000 unit)-90 mcg tablet,disintegrating Take by mouth No current facility-administered medications for this visit. Vital Signs: Vitals BP 131/87 (BP Location: Right arm, Patient Position: Sitting) Pulse 80 Resp 18 Ht 193 cm (6' 4 ) Wt 130.8 kg (288 lb 4.8 oz) BMI 35.09 kg/m?? Vitals: 01/24/24 1331 BP: 131/87 Pulse: 80 Resp: 18 Wt Readings from Last 3 Encounters: 01/24/24 130.8 kg (288 lb 4.8 oz) 08/16/23 (!) 139.5 kg (307 lb 8 oz) 06/29/23 136.1 kg (300 lb) Body mass index is 35.09 kg/m??. Physical Exam: Physical Exam Labs: No results found for: INR No results found for: PT No results found for: TSH , T3FREE , FREET4 Lab Results Component Value Date AST 24 07/26/2021 ALT 30 07/26/2021 ALKPHOS 82 07/26/2021 ALBUMIN 4.4 07/26/2021 No results found for: SODIUM , POTASSIUM , CHLORIDE , CO2 , ANIONGAP , BUN , CK , GLUCOSEUR No results found for: BNP Lab Results Component Value Date ALBUMIN 4.4 07/26/2021 ALBUMIN 4.5 04/18/2017 Lab Results Component Value Date BILITOT 0.4 07/26/2021 PROT 7.6 07/26/2021 ALBUMIN 4.4 07/26/2021 ALKPHOS 82 07/26/2021 ALT 30 07/26/2021 AST 24 07/26/2021 No results found for: WBC , HGB , HCT , LABPLAT , MPV , RBC , MCV , MCH , MCHC , RDWCV , RDWSD , NRBCABS Lab Results Component Value Date CHOL 170 07/26/2021 TRIG 221 (H) 07/26/2021 HDL 42 07/26/2021 LDLCALC 84 07/26/2021 NONHDLCHOL 128 07/26/2021 CHOLHDL 4 07/26/2021 Testing: Diagnoses and Plan Diagnoses and all orders for this visit: Primary hypertension (Primary) Assessment & Plan: We discussed that his blood pressure today' is quite good on current medications. I will not make any changes. Coronary artery disease involving mechoopda coronary artery of mechoopda heart without angina pectoris Assessment & Plan: We discussed catheterization from 16 years ago. He could not remember what kind of chest pain but he remember left upper extremity pain. No recent chest pain or shortness of breath with activities. He does not think he needs another stress test and that is probably okay as the last stress test 4.5 years ago was normal. Elevated LDL cholesterol level Assessment & Plan: We discussed LDL cholesterol goal of less than 70 mg/dL. We also discussed that he has only had 2 blood tests for cholesterol the past 6 years. He knows that he needs to get a lipid panel now. No change in Lipitor dosing at this time. Orders: - Hepatic function panel; Future - Lipid panel; Future Return in about 1 year (around 01/23/2025). 01/24/2024 1:53 PM Cristian Aguilar MD Cc:Brice Ulrich MD ETING SUPPORT MANAGER documented in this encounter Miscellaneous Notes * Assessment & Plan Note - Cristian Aguilar MD - 01/24/2024 1:52 PM MARKETING SUPPORT MANAGER Associated Problem(s): Elevated LDL cholesterol level We discussed LDL cholesterol goal of less than 70 mg/dL. We also discussed that he has only had 2 blood tests for cholesterol the past 6 years. He knows that he needs to get a lipid panel now. No change in Lipitor dosing at this time. ETING SUPPORT MANAGER * Assessment & Plan Note - Cristian Aguilar MD - 01/24/2024 1:52 PM MARKETING SUPPORT MANAGER Associated Problem(s): Coronary artery disease involving mechoopda coronary artery of mechoopda heart We discussed catheterization from 16 years ago. He could not remember what kind of chest pain but he remember left upper extremity pain. No recent chest pain or shortness of breath with activities. He does not think he needs another stress test and that is probably okay as the last stress test 4.5 years ago was normal. ETING SUPPORT MANAGER * Assessment & Plan Note - Cristian Aguilar MD - 01/24/2024 1:51 PM MARKETING SUPPORT MANAGER Associated Problem(s): Primary hypertension We discussed that his blood pressure today' is quite good on current medications. I will not make any changes. ETING SUPPORT MANAGER documented in this encounter Plan of Treatment Not on file documented as of this encounter Results * Lipid panel (02/01/2024 9:55 AM MARKETING SUPPORT MANAGER) [facility] Cholesterol 183 30 - 199 mg/dL Comment: [...] on 2018. Triglycerides 132 <=149 mg/dL [facility] ([place]) Comment: Interpretive Data [...] on 2018. HDL 47 >=40 mg/dL [facility]aza ([place]) Comment: Interpretive Data Ages < or [...] LDL, calculated 110 <=129 mg/dL [facility] ([place]) Comment: Interpretive Data Ages < or = [...] 2018. Non-HDL Cholesterol 136 mg/dL [facility] ([place]) Comment: Interpretive Data Ages < or = [...] on 2018. Chol/HDL ratio 4 [facility]SE GRAY ([place]) Blood 02/01/2024 9:5 5 AM MARKETING SUPPORT MANAGER 02/01/2024 10:11 AM MARKETING SUPPORT MANAGER us Cristian Aguilar MD LAB BLOOD ORDERABLES Final Re sult [facility] G[facility] ([place]) [facility] Department [place] [address] * Hepatic function panel (02/01/2024 9:55 AM MARKETING SUPPORT MANAGER) Bilirubin, total 0.7 0.1 - 1.2 mg/dL Bilirubin, direct <0.2 0.1 - 0.3 mg/dL [facility] ([place]) Comment: Hemolysis present. ??Results may be affected. Slightly Hemolyzed Specimen Protein, pl 6.9 6.5 - 8.5 g/dL [facility] ([place]) Albumin 4.3 3.5 - 5.0 g/dL [facility] ([place]) Alk phos 71 40 - 130 Units/L [facility] ([place]) ALT 26 7 - 55 Units/L [facility] ([place]) AST 25 10 - 50 Units/L [facility] ([place]) Comment: Hemolysis present. ??Results may be affected. Slightly Hemolyzed Specimen Blood 02/01/2024 9:55 AM MARKETING SUPPORT MANAGER 02/01/2024 10:11 AM MARKETING SUPPORT MANAGER Cristian Aguilar MD LAB BLOOD ORDERABLES Final Re sult [facility] ([place]) [address] [facility] Department [place] [address] documented in this encounter Visit Diagnoses Diagnosis Primary hypertension- Primary Unspecified essential hypertension Coronary artery disease involving mechoopda coronary artery of mechoopda heart without angina pectoris Elevated LDL cholesterol level documented in this encounter Historical Medications * This list may reflect changes made after this encounter. vitamin D3-vitamin K2 25 mcg (1,000 unit)-90 mcg tablet,disintegra ting Take by mouth traMADoL (ULTRAM) 50 mg tablet Take 1 tablet (50 mg total) by mouth every 8 (eight) hours as needed for pain added in this encounter Care Teams Retina Subspecialist Relationship Specialty Start Date End Date Brice Ulrich MD PCP - General 04/18/17 documented as of this encounter
--- OUTSIDE RECORDS SUMMARY | 2024-12-06 19:52 | XMS_ITS | Encounter Summary ---
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 Gender Identity Not on file Sexual Orientation Not on file documented as of this encounter Plan of Treatment Not on file documented as of this encounter Procedures Procedure Name Priority Date/Time Associated Diagnosis Comments EGFR Routine 03/05/2024 9:45 AM CDT Medication management MAGNESIUM Routine 03/05/2024 9:45 AM CDT Medication management HEPATIC FUNCTION PANEL Routine 03/05/2024 9:45 AM CDT High cholesterol LIPID PANEL Routine 03/05/2024 9:45 AM CDT High cholesterol BASIC METABOLIC PANEL Routine 03/05/2024 9:45 AM CDT Medication management documented in this encounter Results * eGFR (03/05/2024 9:45 AM CDT) eGFR 65 >=60 mL/min/1. 73 m2 Comment: Interpretive Data Reference Interval Normal ?>/= 90 mL/min/1.73m2 Mildly decreased* ? 60 - 89 mL/min/1.73m2 Mildly to moderately decreased ?45 - 59 mL/min/1.73m2 Moderately to severely decreased ??30 - 44 mL/min/1.73m2 Severely decreased ?15 - 29 mL/min/1.73m2 Kidney Failure ?< 15 ??mL/min/1.73m2 *Relative to young adult level Estimated glomerular filtration rate is determined by the 2020 CKD-EPI equation recommended by the National Kidney Foundation (A Unifying Approach to GFR Estimation: Recommendations of the NKF-ASK Task Force on Reassessing the Inclusion of Race in Diagnosing Kidney Disease, JASN 202). The CKD-EPI equation should not be used for patients with unstable renal function and has not been validated in children and those over 70. Current interpretive data was last reviewed 2021. Blood 03/05/2024 9:45 AM CDT 03/05/2024 10:19 AM CDT us Cristian Aguilar MD LAB BLOOD ORDERABLES Final Re sult [facility] [place]) [address] [facility] [place] [address] * Lipid panel (03/05/2024 9:45 AM CDT) Cholesterol 130 30 - 199 mg/dL Comment: [...] revised on 2018. Triglycerides 69 <=149 mg/dL [facility]) Comment: Interpretive Data Ages [...] 2018. LDL, calculated 68 <=129 mg/dL [facility] ([place]) Comment: Interpretive [...] 2018. Non-HDL Cholesterol 82 mg/dL [facility] ([place]) Comment: Interpretive Data [...] AM CDT 03/05/2024 10:19 AM CDT us Cristina Aguilar MD LAB BLOOD ORDERABLES Final Re sult [facility] ([place]) 1 [facility] [place] [address] * Hepatic function panel (03/05/2024 9:45 AM CDT) Bilirubin, total 0.7 0.1 - 1.2 mg/dL Bilirubin, direct <0.2 0.1 - 0.3 mg/dL [facility] ([place]) Protein, pl 6.9 6.5 - 8.5 g/dL [facility] ([place]) Albumin 4.2 3.5 - 5.0 g/dL [facility] Alk phos 69 40 - 130 Units/L [facility]) ALT 29 7 - 55 Units/L [facility]) AST 26 10 - 50 Units/L [facility] ([place]) Comment:Slightly Hemolyzed S pecimen Blood 03/05/2024 9:45 AM CDT 03/05/2024 10:19 AM CDT us Cristian Aguilar MD LAB BLOOD ORDERABLES Final Re sult Performing Organization Address City/[facility]/ZIP Co de Phone Number [facility] ([place]) 1 [facility] [place] [address] * (ABNORMAL) Basic metabolic panel (03/05/2024 9:45 AM CDT) Sodium 139 135 - 145 mmol/L Potassium, pl 4.3 3.3 - 4.9 mmol/L [facility] ([place]) Chloride 103 97 - 110 mmol/L [facility]) CO2 25 22 - 32 mmol/L [facility] ([place]) Anion gap 11 2 - 15 mmol/L [facility] ([place]) BUN 22 6 - 25 mg/dL [facility] ([place]) Creatinine 1.27 0.80 - 1.30 mg/dL [facility] ([place]) Glucose 200(H) 70 - 199 mg/dL [facility] ([place]) Comment: Interpretive Data Fasting glucose >/= 126 mg/dl is diagnostic for diabetes. ?? Fasting is defined as no caloric intake for at least 8 hours. Fasting glucose between 100 mg/dl to 125 mg/dl is diagnostic of prediabetes. In a patient with classic symptoms of hyperglycemia or hyperglycemic crisis, a random glucose >/= 200 mg/dl is diagnostic for diabetes. In the absence of unequivocal hyperglycemia, results should be confirmed by repeat testing. The classification and Diagnosis of Diabetes Diabetes Care 2021; 46: S19-S40. Current interpretive data was last revised 2022. Calcium 9.3 8.5 - 10.3 mg/dL [facility] ([place]) Blood 03/05/2024 9:45 AM CDT 03/05/2024 10:19 AM CDT us Cristian Aguilar MD LAB BLOOD ORDERABLES Final Re sult Performing Organization Address City/[facility]/ZIP Co de Phone Number [facility] ([place]) 1 [facility] [place] [address] * Magnesium (03/05/2024 9:45 AM CDT) Pathologist [facility] Magnesium 2.1 1.4 - 2.5 mg/dL Blood 03/05/2024 9:45 AM CDT 03/05/2024 10:19 AM CDT Cristian Aguilar MD LAB BLOOD ORDERABLES Final Re sult [facility] ([place]) 1 [facility] [place] [address] documented in this encounter Visit Diagnoses Diagnosis Medication management High cholesterol Pure hypercholesterolemia documented in this encounter Care Teams Retail Event And Sales Assistant Relationship Specialty Start Date End Date Brice Ulrich MD PCP - General 04/18/17 documented as of this encounter
--- OUTSIDE RECORDS SUMMARY | 2024-12-06 19:52 | XMS_ITS | Encounter Summary ---
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 Gender Identity Not on file Sexual Orientation [...] Name Priority Date/Time Associated Diagnosis Comments XR KNEE RIGHT 4 OR MORE VIEWS Schedule Routine, Read Routine (OP Routine) 02/01/2024 10:58 AM DISASSEMBLER Primary osteoarthritis of right knee documented in this encounter Results * XR Knee Right 4 or More Views (02/01/2024 10:58 AM DISASSEMBLER) Anatomical Region Laterality Modality Lower Extremities, Knee Right Digital Radiography Narrative 02/01/2024 10:59 AM DISASSEMBLER Radiographs taken of the right knee today reveal moderate degenerative changes with subchondral sclerosis, osteophyte formation, and diminished joint space. us Alyson MADSEN IMG XR PROCEDURES Fin al Result documented in this encounter Visit Diagnoses Not on filedocumented in this encounter Care Teams Acute Care Clinical Nurse Specialist Relationship Specialty Start Date End Date Brice Ulrich MD PCP - General 04/18/17 documented as of this encounter
--- OUTSIDE RECORDS SUMMARY | 2024-12-06 19:52 | XMS_ITS | Encounter Summary ---
Author Organization [facility] Healthcare Address [address] [place] [address] Care Team Providers Care Director Of Land Acquisition Name Role Phone Brice Ulrich MD Primary Care Provider [phone] Encounter Details Date Type Department Care Team (Late st Contact Info) Description 02/26/2024 Orders Only [place] [facility] Assistant at [address] [place] [id number] Cristian Aguilar MD [address] [place] [address] [address] [place] [address] Medication management (Primary Dx) Social History Tobacco Use Types [...] on file 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 Gender Identity Not on file Sexual Orientation Not on file documented as of this encounter Progress Notes * Temi Moore MA - 02/26/2024 2:36 PM CDT Order BMP and Magnesium documented in this encounter Plan of Treatment Not on file documented as of this encounter Results * Magnesium (03/05/2024 9:45 AM CDT) Magnesium 2.1 1.4 - 2.5 mg/dL Blood 03/05/2024 9:45 AM CDT 03/05/2024 10:19 AM CDT us Cristian Aguilar MD LAB BLOOD ORDERABLES Final Re sult [facility] ([place]) 1 [facility] Department [place] [address] * (ABNORMAL) Basic metabolic panel (03/05/2024 9:45 AM CDT) Sodium 139 135 - 145 mmol/L Potassium, pl 4.3 3.3 - 4.9 mmol/L [facility]) Chloride 103 97 - 110 mmol/L [facility]) CO2 25 22 - 32 mmol/L [facility]) Anion gap 11 2 - 15 mmol/L [facility] ([place]) BUN 22 6 - 25 mg/dL [facility]) Creatinine 1.27 0.80 - 1.30 mg/dL [facility] ([place]) Glucose 200(H) 70 - 199 mg/dL [facility] ([place]) Comment: Interpretive Data Fasting glucose >/= [...] 2022. Calcium 9.3 8.5 - 10.3 mg/dL [facility] ([place]) Blood 03/05/2024 9:45 AM CDT 03/05/2024 10:19 AM CDT us Cristian Aguilar MD LAB BLOOD ORDERABLES Final Re sult [facility] ([place]) 1 [facility] Department [place] [address] documented in this encounter Visit Diagnoses Diagnosis Medication management- Primary documented in this encounter Care Teams Director Of Land Acquisition Relationship Specialty Start Date End Date Brice Ulrich MD PCP - General 04/18/17 documented as of this encounter
--- OUTSIDE RECORDS SUMMARY | 2024-12-06 19:52 | XMS_ITS | Encounter Summary ---
Author Organization [facility] Address [address] [place] [address] Care Team Providers Care Numerical Tool Programmer Name Role Phone Brice Ulrich MD Primary Care Provider [phone] Reason for Visit * Reason Comments Follow-up Encounter Details Date Type Department Care Team (Late st Contact Info) Description 05/17/2023 11:45 AM CDT Office Visit [facility] Pulmonary at [address] [place] [address] Sloan Cramer MD [address] [place] [address] [address] [place] [address] Asthma-COPD overlap syndrome (HCC) (Primary Dx); Cigarette nicotine dependence in remission; Pulmonary hypertension (HCC) Social History Tobacco Use Types Packs/Day Years Used Date Smoking Tobacco: Former Cigarettes 1 25 Smokeless Tobacco: Never Sex and Gender Information Value Date Recorded Sex Assigned at Not on file 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 Gender Identity Not on file Sexual Orientation Not on file documented as of this encounter Last Filed Vital Signs Vital Sign Reading Time Taken Comments Blood Pressure 140/85 05/17/2023 11:36 AM CDT Pulse 93 05/17/2023 11:36 AM CDT Temperature 36.3 ??C (97.3 ??F) 05/17/2023 1 1:36 AM CDT Respiratory Rate 18 05/17/2023 11:3 6 AM CDT Oxygen Saturation 97% 05/17/2023 11: 36 AM CDT Inhaled Oxygen Concentration - - Weight 139.9 kg (308 lb 6.4 oz) 023 11:36 AM CDT Height 193 cm (6' 4 ) 05/17/2023 11:36 AM CDT Body Mass Index 37.54 05/17/2023 11:36 AM CDT documented in this encounter Ordered Prescriptions Prescription Sig Dispense Quantity Refills Last Filled Start Date End Date fluticasone furoate-vilanteroL (BREO ELLIPTA) 100-25 mcg/dose diskus inhaler Inhale 1 puff daily Rinse mouth with water after use. Do not swallow. 30 each 11 05/17/2023 08/16/2023 documented in this encounter Progress Notes * Sloan Cramer MD - 05/17/2023 11:45 AM CDT Images from the original note were not included. PULMONARY CLINIC NOTE Visit Date: 05/17/2023 Chief Complaint: Presents today for Dyspnea on exertion HPI: Simeon Reed is a 57 y.o. male w/ PMH of CAD s/p RI in 2006 who presents on 05/17/2023 for evaluation of dyspnea on exertion. The patient reports dyspnea that is chronic, waxing and waning. He has noted some improved dyspnea with weight loss Interval History: In the interval the patient underwent pulmonary function testing and was started on Anoro. Initially he thought it was not helpful but overall breathing has improved with continued use. He has been trying to be more active and continues to work. He denies any significant allergy symptoms at this time Exposure History: Possible benzene exposure below his home. 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 OBJECTIVE: Physical Exam: Vitals: 05/17/23 1136 BP: 140/85 Pulse: 93 Resp: 18 Temp: 36.3 ??C (97.3 ??F) SpO2: 97% Weight: (!) 139.9 kg (308 lb 6.4 oz) Height: 193 cm (6' 4 ) [...] is actually more consistent with asthma - he did well with Anoro but I believe he may have better symptom control on an ICS/Laba - start Breo once daily - may use albuterol as needed [...] he would not be interested in CPAP - discussed possible alternative therapies but confirming the diagnosis would need to come first - again the patient defers further evaluation at this time Sloan Cramer MD There may be syntax/grammatical errors in this note due to the use of voice recognition software. documented in this encounter Plan of Treatment Not on file documented as of this encounter Visit Diagnoses Diagnosis Asthma-COPD overlap syndrome (HCC)- Primary Cigarette nicotine dependence in remission Pulmonary hypertension (HCC) Other chronic pulmonary heart diseases documented in this encounter Discontinued Medications Medication Sig Discontinue Reason Start Date End Da te umeclidinium-vilanteroL (ANORO ELLIPTA) 62.5-25 mcg/actuation blister with device Inhale 1 puff daily Alternate therapy 04/09/2023 05/17/2023 documented as of this encounter Care Teams Numerical Tool Programmer Relationship Specialty Start Date End Date Brice Ulrich MD PCP - General 04/18/17 documented as of this encounter
--- OUTSIDE RECORDS SUMMARY | 2024-12-06 19:52 | XMS_ITS | Referral Summary ---
Author Organization [facility] Address [address] [place] [address] Care Team Providers Care Civilian Jail Officer Name Role Phone Brice Ulrich MD Primary Care Provider [phone] Encounters Date Type Department Care Team Description 11/30/2024 10:19 AM TAPER OPERATOR - 11/30/2024 11:59 PM TAPER OPERATOR Hospital Encounter [facility] Discharge Disposition: Discharge to home or self care from Last 3 Months Allergies No known active allergies Medications vitamin E (AQUASOL E) 400 unit capsule Take 1 capsule (400 Units total) by mouth daily Active cyanocobalamin (Vitamin B-12) 1,000 mcg tabletIndicatio ns:Prevention of Vitamin B12 Deficiency Take 1 tablet (1,000 mcg total) by mouth daily Active ascorbic acid (VITAMIN C) 500 mg tablet,chewable Take 1 tablet/chew tab (500 mg total) by mouth daily Active ibuprofen (ADVIL,MOTRIN) 800 mg tablet Take 1 tablet (800 mg total) by mouth every 6 (six) hours as needed for pain Active albuterol HFA (Proventil HFA) 90 mcg/actuation inhaler Inhale 2 puffs every 4 (four) hours as needed for wheezing or shortness of breath 6.7 g 5 3 Active Additional Information Patient not taking.Reported on 01/24/2024 budesonide-form oteroL (Symbicort) 160-4.5 mcg/actuation inhaler Inhale 2 puffs 2 (two) times a day Rinse mouth with water after use. Do not swallow. 1 each 3 Active Additional Information Patient not taking.Reported on 01/24/2024 traMADoL (ULTRAM) 50 mg tablet Take 1 tablet (50 mg total) by mouth every 8 (eight) hours as needed for pain Active vitamin D3-vitamin K2 25 mcg (1,000 unit)-90 mcg tablet,disinteg rating Take by mouth Active naproxen (NAPROSYN) 500 mg tablet Take 1 tablet (500 mg total) by mouth 2 (two) times a day with meals 60 tablet 2 4 Active atorvastatin (LIPITOR) 80 mg tablet Take 1 tablet by mouth once daily 90 tablet 3 4 Active clopidogreL (PLAVIX) 75 mg tablet Take 1 tablet (75 mg total) by mouth daily 90 tablet 3 4 02/22/20 25 Active amLODIPine (NORVASC) 10 mg tablet Take 1 tablet by mouth once daily 90 tablet 3 4 Active lisinopriL (PRINIVIL,ZESTR IL) 40 mg tablet Take 1 tablet by mouth once daily 90 tablet 3 4 Active metoprolol (LOPRESSOR) 100 mg tablet Take 1 tablet by mouth twice daily 180 tablet 3 4 Active ezetimibe (ZETIA) 10 mg tablet Take 1 tablet by mouth once daily 90 tablet 3 4 Active Active Problems Problem Noted Date Diagnosed Date Primary osteoarthritis of right knee 02/01/2024 Primary hypertension 10/17/2022 Overview (01/24/2024): On amlodipine 10 mg daily, lisinopril 40 mg daily and metoprolol tartrate 100 mg p.o. b.i.d.. Assessment & Plan (01/24/2024 1:51 PM TAPER OPERATOR): We discussed that his blood pressure today' is quite good on current medications. I will not make any changes. Assessment & Plan (10/17/2022 8:17 AM TAPER OPERATOR): We discussed today's high blood pressure 163/97. He tells me that takes his blood pressure every few weeks and they were okay. He keeps telling me that he feels ? great? . I advised him to increase the Norvasc to 10 mg daily and keep an eye on his blood pressures. Coronary artery disease invo lving [place] coronary artery of [place] heart 02/26/2020 Overview (12/07/2022): Status post BIENVENIDO to LAD in January 2007 after RI (RL). Normal Cardiolite in 2012. Normal Cardiolite on 13 May 2019. Normal LVEF on echo 07 December 2022. Assessment & Plan (01/24/2024 1:52 PM TAPER OPERATOR): We discussed catheterization from 16 years ago. He could not remember what kind of chest pain but he remember left upper extremity pain. No recent chest pain or shortness of breath with activities. He does not think he needs another stress test and that is probably okay as the last stress test 4.5 years ago was normal. Assessment & Plan (10/17/2022 8:19 AM TAPER OPERATOR): Discussed cardiac catheterization findings from 15 years ago. He is not having any chest pain with exertion but has some shortness of breath with moderate exertion. Apparently has diagnosis of ? severe COPD? by Dr. Spain many years ago. So, I advised him to see Dr. Cuellar for evaluation and treatment. He only has a few puffs left from and inhaler from many years ago. There is no echo on [facility], so I will get an echocardiogram ordered. I also advised him to lose some weight as he appears to have gained 10 lb over the past year. Assessment & Plan (07/26/2021 8:34 AM CDT): Patient continues to work in the [employer] without any limitations. He has not had any chest pain or shortness of breath with exertion. We discussed his last stress test from 2 years ago. We could wait for another stress test in a year or 2. No changes in cardiac medications at this time. Assessment & Plan (06/15/2020 9:16 AM CDT): We discussed normal stress test from last year. He has no left upper extremity pain like before. No shortness of breath. No change in medications. Elevated LDL cholesterol level 02/26/2020 Overview (02/02/2024): LDL of 71 mg/dL on 18 Apr 2017. LDL of 84 mg/dL on 26 July 2021. LDL of 110 mg/dl on 01 February 2024. On Lipitor 80 mg p.o. q.d.. Assessment & Plan (01/24/2024 1:52 PM TAPER OPERATOR): We discussed LDL cholesterol goal of less than 70 mg/dL. We also discussed that he has only had 2 blood tests for cholesterol the past 6 years. He knows that he needs to get a lipid panel now. No change in Lipitor dosing at this time. Assessment & Plan (10/17/2022 8:15 AM TAPER OPERATOR): We discussed LDL cholesterol goal of less than 70 mg/dL He has not been at goal and I want to add Zetia. He wants me to check it again so I will get another lipid/liver panel now. If still high, I will add Zetia. Assessment & Plan (07/26/2021 8:35 AM CDT): We discussed LDL cholesterol goal of less than 70 mg/dL. He has really not been at goal since 2017. He is agreeable to increasing the Lipitor to maximum dose of 80 mg p.o. q.d.. Another fasting lipid/liver panel in 6-8 weeks. Weight reduction with better diet also discussed with the patient. Assessment & Plan (06/15/2020 9:16 AM CDT): Patient agreeable to getting a fasting lipid liver panel now. We discussed LDL cholesterol goal less than 70 mg/dL. No changes in medication for now. 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 Gender Identity Not on file Sexual Orientation Not on file Last Filed Vital Signs Vital Sign Reading Time Taken Comments Blood Pressure 132/84 02/01/2024 11:00 AM TAPER OPERATOR Pulse 70 02/01/2024 11:00 AM TAPER OPERATOR Temperature 35.8 ??C (96.5 ??F) 08/16/2023 10:44 AM C DT Respiratory Rate 18 01/24/2024 1:31 PM TAPER OPERATOR Oxygen Saturation 95% 08/16/2023 10:44 AM CDT Inhaled Oxygen Concentration - - Weight 129.7 kg (286 lb) 02/01/2024 11:00 AM TAPER OPERATOR Height 193 cm (6' 4 ) 02/01/2024 11:00 AM TAPER OPERATOR Body Mass Index 34.81 02/01/2024 11:00 AM TAPER OPERATOR Plan of Treatment Not on file Insurance [facility] [id number] [facility] [id number] Member Subscriber Plan / Payer (Ef fective 2021-Present) Name:Simeon Reed Member ID:[id number] Relation to Subscriber:Spouse Name:Mamie Reed Subscriber ID:[id number] Date of :1966 (Home) Address: [address] [place] [address] Payer ID:[id number] Type:[employer] HMO/PPO Address: [facility] [id number] [place] [phone] Care Teams Civilian Jail Officer Relationship Specialty Start Date End Date Brice Ulrich MD PCP - General 04/18/17
--- OUTSIDE RECORDS SUMMARY | 2024-12-06 19:52 | XMS_ITS | Clinical Summary ---
Author Organization [facility] Address [address] [place] [address] Care Team Providers Care Batteryman Name Role Phone Brice Ulrich MD Primary Care Provider Allergies No known active allergies Medications vitamin [...] b.i.d.. Assessment & Plan (01/24/2024 1:51 PM DOWEL SANDER OPERATOR): We discussed that his blood pressure today' is quite good on current medications. I will not make any changes. Assessment & Plan (10/17/2022 8:17 AM DOWEL SANDER OPERATOR): We discussed today's high blood pressure 163/97. He tells me that takes his blood pressure every few weeks and they were okay. He keeps telling me that he feels ? great? . I advised him to increase the Norvasc to 10 mg daily and keep an eye on his blood pressures. Coronary artery disease invo lving [place] coronary artery of [place] heart 02/26/2020 Overview (12/07/2022): Status post BIENVENIDO to LAD in January 2007 after PA (RL). Normal Cardiolite in 2012. Normal Cardiolite on 13 May 2019. Normal LVEF on echo 07 December 2022. Assessment & Plan (01/24/2024 1:52 PM DOWEL SANDER OPERATOR): We discussed catheterization from 16 years [...] normal. Assessment & Plan (10/17/2022 8:19 AM DOWEL SANDER OPERATOR): Discussed cardiac catheterization findings from 15 [...] years ago. There is no echo on [facility], so I will get an echocardiogram ordered. I also advised him to lose some weight as he appears to have gained 10 lb over the past year. Assessment & Plan (07/26/2021 8:34 AM CDT): Patient continues to work in the [employer] business without any limitations. He has not had [...] q.d.. Assessment & Plan (01/24/2024 1:52 PM DOWEL SANDER OPERATOR): We discussed LDL cholesterol goal of less than 70 mg/dL. We also discussed that he has only had 2 blood tests for cholesterol the past 6 years. He knows that he needs to get a lipid panel now. No change in Lipitor dosing at this time. Assessment & Plan (10/17/2022 8:15 AM DOWEL SANDER OPERATOR): We discussed LDL cholesterol goal of [...] mg/dL. No changes in medication for now. Encounters Date Type Department Care Team Description 11/30/2024 10:19 AM DOWEL SANDER OPERATOR - 11/30/2024 11:59 PM [facility] Hospital Encounter [facility] Discharge Disposition: Discharge to home or self care from Last 3 Months Surgical History Surgery Date Site/Laterality Comments CORONARY STENT PLACEMENT 11/26/2006 - 11/25/2007 Medical History Medical History Date Comments Myocardial infarction (HCC) Hypertension Hypercholesteremia Family History Medical History Relation Name Comments Lung disease Mother Relation Name Status Comments Mother Alive Social History Tobacco Use Types Packs/Day Years [...] on file Legal Sex Male 12:13 PM DOWEL SANDER OPERATOR Gender Identity Not on file Sexual Orientation Not on file Obstetrics History Last Filed Vital Signs Vital Sign Reading Time Taken Comments Blood Pressure 132/84 02/01/2024 11:00 AM DOWEL SANDER OPERATOR Pulse 70 02/01/2024 11:00 AM DOWEL SANDER OPERATOR Temperature 35.8 ??C (96.5 ??F) 08/16/2023 10:44 AM C DT Respiratory Rate 18 01/24/2024 1:31 PM DOWEL SANDER OPERATOR Oxygen Saturation 95% 08/16/2023 10:44 AM CDT Inhaled Oxygen Concentration - - Weight 129.7 kg (286 lb) 02/01/2024 11:00 AM DOWEL SANDER OPERATOR Height 193 cm (6' 4 ) 02/01/2024 11:00 AM DOWEL SANDER OPERATOR Body Mass Index 34.81 02/01/2024 11:00 AM DOWEL SANDER OPERATOR Plan of Treatment Health Maintenance Due Date Last Done Comments Colon Cancer Screening-Colonoscopy 1964 Depression Screening 1964 Hepatitis C Screening 1964 Prostate Cancer Screening-PSA 1964 DTaP/Tdap/Td Vaccine (1 - Tdap) 1975 Hepatitis B Screening 1982 Regular Well Visit/Exam 18-64 1982 Zoster Vaccine (1 of 2) 2014 Covid-19 Vaccine (2 - 2023-2 5 season) 2024 07/24/2021 Influenza Vaccine (#1) 2024 Pneumococcal vaccine <65 Aged Out No longer eligible based on patient's age to complete this topic [place] [address] [place] [id number] [facility] [id number] Member Subscriber Plan / Payer (Ef fective 2021-Present) Name:Simeon Reed Member ID:[id number] Relation to Subscriber:Spouse Name:Mamie Reed Subscriber ID:[id number] Date of :1966 (Home) Address: [address] [place] [address] Payer ID:[id number] Type:[employer] HMO/PPO Address: [address] [place] [phone] Care Teams Batteryman Relationship Specialty Start Date End Date Brice Ulrich MD PCP - General 04/18/17
--- OUTSIDE RECORDS SUMMARY | 2024-12-06 19:52 | XMS_ITS | Encounter Summary ---
Author Organization [facility] Address [address] [place] [address] Care Team Providers Care Able Bodied Seaman Name Role Phone Brice Ulrich MD Primary Care Provider [phone] Encounter Details Date Type Department Care Team (Late st Contact Info) Description 05/24/2023 Orders Only [facility] Pulmonary at [address] [place] [address] Terri Leger LPN Social History Tobacco Use Types Packs/Day Years Used Date Smoking Tobacco: Former Cigarettes 1 25 Smokeless Tobacco: Never Sex and Gender Information Value Date Recorded Sex Assigned at Not on file Legal Sex Male 12:13 PM INFORMATION RESOURCES DIRECTOR Gender Identity Not on file Sexual Orientation Not on file documented as of this encounter Ordered Prescriptions Prescription Sig Dispense Quantity Refills Last Filled Start Date End Date albuterol HFA (Proventil HFA) 90 mcg/actuation inhaler Inhale 2 puffs every 4 (four) hours as needed for wheezing or shortness of breath 6.7 g 5 05/24/2023 documented in this encounter Progress Notes * Terri Leger LPN - 05/24/2023 3:11 PM CDT Pt called requesting refill for albuterol Last office visit 05.17.23 Next office visit 08.16.23 Medication verified in chart. Medication sent to pharmacy. documented in this encounter Plan of Treatment Not on file documented as of this encounter Visit Diagnoses Not on filedocumented in this encounter Care Teams Able Bodied Seaman Relationship Specialty Start Date End Date Brice Ulrich MD PCP - General 04/18/17 documented as of this encounter
--- OUTSIDE RECORDS SUMMARY | 2024-12-06 19:53 | XMS_ITS | Encounter Summary ---
Author Organization [facility] Healthcare Address [address] [place] [address] Care Team Providers Care Deputy City Clerk Name Role Phone Brice Ulrich MD Primary Care Provider Encounter Details Date Type Department Care Team (Late st Contact Info) Description 04/18/2017 Orders Only [facility] [phone] Cristian Aguilar MD [address] [place] [id number] Social History Tobacco Use Types Packs/Day Years Used Date Smoking Tobacco: Never Assessed Sex and Gender Information Value Date Recorded Sex Assigned at Not on file Legal Sex Male 12:13 PM PETS SALESPERSON Gender Identity Not on file Sexual Orientation Not on file documented as of this encounter Plan of Treatment Not on file documented as of this encounter Procedures Procedure Name Priority Date/Time Associated Diagnosis Comments HEPATIC FUNCTION PANEL New Adm-Reg 04/18/2017 6:43 AM CDT documented in this encounter Results * Hepatic function panel (04/18/2017 6:43 AM CDT) Protein, sr 7.6 6.0 - 8.4 g/dL [facility] Albumin 4.5 3.6 - 5.0 g/dL [facility] Bilirubin, total 0.5 <=1.2 mg/dL [facility] Bilirubin, direct <0.2 0.0 - 0.3 mg/dL [facility] Alk phos 66 40 - 130 Units/L [facility] AST 26 10 - 45 Units/L [facility]) ALT 33 5 - 50 Units/L [facility] AST/ALT ratio 0.8 [facility] Blood specimen (specimen) 04/18/2017 6:43 AM CDT 04/18/2017 8:24 AM CDT Narrative [facility] ([place]) - 04/18/2017 9:33 AM CDT FAX RESULTS TO [phone] us Cristian Aguilar MD LAB BLOOD ORDERABLES Final Re sult [facility] [address] [facility] Department [place] [address] documented in this encounter Visit Diagnoses Not on filedocumented in this encounter Care Teams Deputy City Clerk Relationship Specialty Start Date End Date Brice Ulrich MD PCP - General 04/18/17 documented as of this encounter
--- OUTSIDE RECORDS SUMMARY | 2024-12-06 19:53 | XMS_ITS | Encounter Summary ---
Author Organization [facility] Healthcare Address [address] [place] [address] Care Team Providers Care Precision Layout Worker Name Role Phone Unavailable Primary Care Provider Unavailabl e Encounter Details Date Type Department Care Team (Late st Contact Info) Description 08/26/2007 12:01 AM CDT - 09/25/2007 11:59 PM CDT Hospital Encounter [facility] Cristian Jiang MD [address] [place] [address] [address] Social History Tobacco Use Types Packs/Day Years Used Date Smoking Tobacco: Never Assessed Sex and Gender Information Value Date Recorded Sex Assigned at Not on file Legal Sex Male 12:13 PM LEAD MASON TENDER Gender Identity Not on file Sexual Orientation Not on file documented as of this encounter Plan of Treatment Not on file documented as of this encounter Visit Diagnoses Not on filedocumented in this encounter
--- OUTSIDE RECORDS SUMMARY | 2024-12-06 19:53 | XMS_ITS | Encounter Summary ---
Author Organization [facility] Healthcare Address [address] [place] [address] Care Team Providers Care Funding Specialist Name Role Phone Brice Ulrich MD Primary Care Provider [phone] Encounter Details Date Type Department Care Team (Late st Contact Info) Description 12/06/2022 Orders Only [facility] Cardiology [address] [place] [address] Elicia Blank Social History Tobacco Use Types Packs/Day Years Used Date Smoking Tobacco: Former Smokeless Tobacco: Never Sex and Gender Information Value Date Recorded Sex Assigned at Not on file Legal Sex Male 12:13 PM 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
--- OUTSIDE RECORDS SUMMARY | 2024-12-06 19:53 | XMS_ITS | Encounter Summary ---
Author Organization [facility] Address [address] [place] [address] Care Team Providers Care Campaign Associate Name Role Phone Brice Ulrich MD Primary Care Provider [phone] Encounter Details Date Type Department Care Team (Late st Contact Info) Description 07/25/2021 Orders Only [facility] [address] [facility] [address] [place] [address] Cristian Aguilar MD [address] [place] [address] [address] Dyslipidemia (Primary Dx) Social History Tobacco Use Types Packs/Day Years Used Date Smoking Tobacco: Former Smokeless Tobacco: Never Sex and Gender Information Value Date Recorded Sex Assigned at Not on file Legal Sex Male 12:13 PM ACCOUNT INSTALLATION SPECIALIST Gender Identity Not on file Sexual Orientation Not on file documented as of this encounter Plan of Treatment Not on file documented as of this encounter Results * Hepatic function panel (07/26/2021 7:07 AM CDT) Bilirubin, total 0.4 0.1 - 1.2 mg/dL [facility] Bilirubin, direct <0.2 0.1 - 0.3 mg/dL [facility]) Protein, pl 7.6 6.5 - 8.5 g/dL [facility]) Albumin 4.4 3.5 - 5.0 g/dL [facility]) Alk phos 82 40 - 130 Units/L [facility] ALT 30 7 - 55 Units/L [facility] AST 24 10 - 50 Units/L [facility]) Blood 07/26/2021 7:07 AM CDT 07/26/2021 7:30 AM CDT us Cristian Aguilar MD LAB BLOOD ORDERABLES Final Re sult [facility] [address] [facility] Department [place] [address] * (ABNORMAL) Lipid panel (07/26/2021 7:07 AM CDT) Cholesterol 170 30 - 199 mg/dL [facility] Comment: Interpretive Data Ages < [...] Data was last revised on 2018. Triglycerides 221(H) <=149 mg/dL [facility]) Comment: Interpretive [...] Data was last revised on 2018. HDL 42 >=40 mg/dL [facility]) Comment: Interpretive Data [...] was last revised on 2018. LDL, calculated 84 <=129 mg/dL [facility]) Comment: Interpretive [...] was last revised on 2018. Non-HDL Cholesterol 128 mg/dL [facility] ([place]) Comment: Interpretive Data Ages < or = [...] Chol/HDL ratio 4 [facility] ([place]) Blood 07/26/2021 7:07 AM CDT 07/26/2021 7:30 AM CDT us Cristian Aguilar MD LAB BLOOD ORDERABLES Final Re sult [facility] ([place]) [address] [facility] [place] [address] documented in this encounter Visit Diagnoses Diagnosis Dyslipidemia- Primary Other and unspecified hyperlipidemia documented in this encounter Care Teams Campaign Associate Relationship Specialty Start Date End Date Brice Ulrich MD PCP - General 04/18/17 documented as of this encounter
--- OUTSIDE RECORDS SUMMARY | 2024-12-06 19:53 | XMS_ITS | Encounter Summary ---
Author Organization [facility] Healthcare Address [address] [place] [address] Care Team Providers Care Frit Burner Name Role Phone Unavailable Primary Care Provider Unavailabl e Encounter Details Date Type Department Care Team (Late st Contact Info) Description 09/14/2008 12:01 AM CDT - 09/14/2008 11:59 PM CDT Hospital Encounter [facility] Cristian Jiang MD [address] [place] [address] [address] Social History Tobacco Use Types Packs/Day Years Used Date Smoking Tobacco: Never Assessed Sex and Gender Information Value Date Recorded Sex Assigned at Not on file Legal Sex Male 12:13 PM HORIZONTAL BORING MILL OPERATOR Gender Identity Not on file Sexual Orientation Not on file documented as of this encounter Plan of Treatment Not on file documented as of this encounter Visit Diagnoses Not on filedocumented in this encounter
--- OUTSIDE RECORDS SUMMARY | 2024-12-06 19:53 | XMS_ITS | Encounter Summary ---
Author Organization [facility] Healthcare Address [address] [place] [address] Care Team Providers Care Hand Quilter Name Role Phone Unavailable Primary Care Provider Unavailabl e Encounter Details Date Type Department Care Team (Late st Contact Info) Description 02/24/2007 12:01 AM CDT - 03/25/2007 11:59 PM CDT Hospital Encounter [facility] Cristian Jiang MD [address] [place] [address] [address] Social History Tobacco Use Types Packs/Day Years Used Date Smoking Tobacco: Never Assessed Sex and Gender Information Value Date Recorded Sex Assigned at Not on file Legal Sex Male 12:13 PM CANDY DEPOSITING MACHINE OPERATOR Gender Identity Not on file Sexual Orientation Not on file documented as of this encounter Plan of Treatment Not on file documented as of this encounter Visit Diagnoses Not on filedocumented in this encounter
--- OUTSIDE RECORDS SUMMARY | 2024-12-06 19:53 | XMS_ITS | Encounter Summary ---
Author Organization [facility] Healthcare Address [address] [place] [address] Care Team Providers Care Database Security Administrator Name Role Phone Unavailable Primary Care Provider Unavailabl e Encounter Details Date Type Department Care Team (Late st Contact Info) Description 06/10/2008 2:47 PM CDT - 06/10/2008 11:59 PM CDT Hospital Encounter [facility] Cristian Jiang MD [address] [place] [address] [address] Social History Tobacco Use Types Packs/Day Years Used Date Smoking Tobacco: Never Assessed Sex and Gender Information Value Date Recorded Sex Assigned at Not on file Legal Sex Male 12:13 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
--- OUTSIDE RECORDS SUMMARY | 2024-12-06 19:53 | XMS_ITS | Encounter Summary ---
Author Organization [facility] Healthcare Address [address] [place] [address] Care Team Providers Care Service Porter Name Role Phone Unavailable Primary Care Provider Unavailabl e Encounter Details Date Type Department Care Team (Late st Contact Info) Description 09/26/2007 12:01 AM CDT - 10/25/2007 11:[address] FOREMAN Hospital Encounter [facility] Cristian Jiang MD [address] [place] [address] [address] Social History Tobacco Use Types Packs/Day Years Used Date Smoking Tobacco: Never Assessed Sex and Gender Information Value Date Recorded Sex Assigned at Not on file Legal Sex Male 12:[address] FOREMAN Gender Identity Not on file Sexual Orientation Not on file documented as of this encounter Plan of Treatment Not on file documented as of this encounter Visit Diagnoses Not on filedocumented in this encounter
--- OUTSIDE RECORDS SUMMARY | 2024-12-06 19:53 | XMS_ITS | Encounter Summary ---
Author Organization [facility] Healthcare Address [address] [place] [address] Care Team Providers Care Programmer Name Role Phone Unavailable Primary Care Provider Unavailabl e Encounter Details Date Type Department Care Team (Late st Contact Info) Description 05/26/2007 12:01 AM CDT - 06/25/2007 11:59 PM CDT Hospital Encounter [facility] Cristian Jiang MD [address] [place] [address] [address] Social History Tobacco Use Types Packs/Day Years Used Date Smoking Tobacco: Never Assessed Sex and Gender Information Value Date Recorded Sex Assigned at Not on file Legal Sex Male 12:13 PM MORTGAGE CONSULTANT Gender Identity Not on file Sexual Orientation Not on file documented as of this encounter Plan of Treatment Not on file documented as of this encounter Visit Diagnoses Not on filedocumented in this encounter
--- OUTSIDE RECORDS SUMMARY | 2024-12-06 19:53 | XMS_ITS | Encounter Summary ---
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 2 [facility] [address] [place] [address] Critsian Aguilar MD [address] [place] [address] [address] [place] [address] Coronary artery disease involving [place] coronary artery of [place] heart without angina pectoris (Primary Dx); Dyslipidemia Social History Tobacco Use Types Packs/Day Years Used Date Smoking Tobacco: Former Smokeless Tobacco: Never Sex and Gender Information Value Date Recorded Sex Assigned at Not on file 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 Gender Identity Not on file Sexual Orientation Not on file documented as of this encounter Last Filed Vital Signs Vital Sign Reading Time Taken Comments Blood Pressure 146/88 07/26/2021 8:16 AM CDT Pulse 74 07/26/2021 8:16 AM CDT Temperature - - Respiratory Rate 18 07/26/2021 8:16 AM CDT Oxygen Saturation - - Inhaled Oxygen Concentration - - Weight 130.6 kg (288 lb) 07/26/2021 8:16 AM CDT Height 193 cm (6' 4 ) 07/26/2021 8:16 AM CDT Body Mass Index 35.06 07/26/2021 8:16 AM CDT documented in this encounter Ordered Prescriptions Prescription Sig Dispense Quantity Refills Last Filled Start Date End Date atorvastatin (LIPITOR) 80 mg tablet Take 1 tablet (80 mg total) by mouth daily 90 tablet 3 07/26/2021 02/26/2023 amLODIPine (NORVASC) 5 mg tablet Take 1 tablet (5 mg total) by mouth daily 90 tablet 3 07/26/2021 02/14/2022 documented in this encounter Progress Notes * Cristian Aguilar MD - 07/26/2021 8:15 AM CDT Cardiology note Reason for Office Visit: Follow-up on CAD. Chief Complaint Patient presents with ??? Follow-up History of Present Illness: Simeon Reed is a 55 y.o. male last seen about a year ago. He thought he had COVID 2 years ago but did not get an antibody test. Just got his 1st COVID vaccination recently. I encouraged him to get a 2nd shot as soon as possible. Review of Systems: Review of Systems Constitutional: Negative for decreased appetite, diaphoresis, fever, weight gain and weight loss. HENT: Negative for nosebleeds. Eyes: Negative for blurred vision. Cardiovascular: Negative for chest pain, claudication, cyanosis, dyspnea on exertion, irregular heartbeat, leg swelling, near-syncope, orthopnea, palpitations, paroxysmal nocturnal dyspnea and syncope. Respiratory: Negative for cough, hemoptysis, shortness of breath, sleep disturbances due to breathing, snoring, sputum production and wheezing. Hematologic/Lymphatic: Negative for bleeding problem. Does not bruise/bleed easily. Musculoskeletal: Negative for back pain. Gastrointestinal: Negative for bloating, heartburn and nausea. Genitourinary: Negative for hematuria. Neurological: Negative for excessive daytime sleepiness, dizziness, headaches, light-headedness, loss of balance and vertigo. Psychiatric/Behavioral: Negative for altered mental status and memory loss. Histories: History reviewed. No pertinent past medical history. History reviewed. No pertinent surgical history. History reviewed. No pertinent family history. Social History Tobacco Use ??? Smoking status: Former Smoker ??? Smokeless tobacco: Never Used Substance Use Topics ??? Alcohol use: Not on file ??? Drug use: Not on file Allergies: No Known Allergies Medications: Current Outpatient Medications Medication Sig Dispense Refill ??? amLODIPine (NORVASC) 5 mg tablet Take 1 tablet (5 mg total) by mouth daily 90 tablet 3 ??? ascorbic acid (ascorbic acid with pardeep hips) 500 mg tablet,chewable Take 500 mg by mouth daily ??? atorvastatin (LIPITOR) 80 mg tablet Take 1 tablet (80 mg total) by mouth daily 90 tablet 3 ??? clopidogreL (PLAVIX) 75 mg tablet Take 1 tablet (75 mg total) by mouth daily 90 tablet 3 ??? cyanocobalamin (Vitamin B-12) 1,000 mcg tablet Take 1,000 mcg by mouth daily ??? lisinopriL (PRINIVIL,ZESTRIL) 40 mg tablet Take 1 tablet (40 mg total) by mouth daily 90 tablet3 ??? metoprolol (LOPRESSOR) 100 mg tablet Take 1 tablet (100 mg total) by mouth 2 (two) times a day 180 tablet 3 ??? vitamin E (vitamin E) 400 unit capsule Take 400 Units by mouth daily No current facility-administered medications for this visit. Vital Signs: Vitals BP 146/88 (BP Location: Left arm, Patient Position: Sitting) Pulse 74 Resp 18 Ht 193 cm (6' 4 ) Wt 130.6 kg (288 lb) BMI 35.06 kg/m?? Vitals: 07/26/21 0816 BP: 146/88 Pulse: 74 Resp: 18 Wt Readings from Last 3 Encounters: 07/26/21 130.6 kg (288 lb) 06/15/20 133.8 kg (295 lb) Body mass index is 35.06 kg/m??. Physical Exam: Physical Exam Constitutional: General: He is not in acute distress. Appearance: Normal appearance. He is well-developed. He is not diaphoretic. HENT: Mouth/Throat: Pharynx: No oropharyngeal exudate. Eyes: Pupils: Pupils are equal, round, and reactive to light. Neck: Vascular: No JVD. Trachea: No tracheal deviation. Cardiovascular: Rate and Rhythm: Normal rate and regular rhythm. Pulses: Intact distal pulses. No decreased pulses. Heart sounds: S1 normal and S2 normal. No murmur heard. No gallop. Pulmonary: Effort: Pulmonary effort is normal. Breath sounds: No decreased breath sounds, wheezing, rhonchi or rales. Abdominal: General: Bowel sounds are normal. Palpations: Abdomen is soft. Skin: General: Skin is warm and dry. Neurological: Mental Status: He is alert and oriented to person, place, and time. Labs: No results found for: INR No results found for: PT No results found for: TSH, T3FREE, FREET4 Lab Results Component Value Date AST 24 07/26/2021 ALT 30 07/26/2021 ALKPHOS 82 07/26/2021 ALBUMIN 4.4 07/26/2021 No results found for: SODIUM, POTASSIUM, CHLORIDE, CO2, ANIONGAP, BUN, CK, GLUCOSEUR No results found for: BNP Lab Results Component Value Date ALBUMIN 4.4 07/26/2021 ALBUMIN 4.5 04/18/2017 Lab Results Component Value Date BILITOT 0.4 07/26/2021 PROT 7.6 07/26/2021 ALBUMIN 4.4 07/26/2021 ALKPHOS 82 07/26/2021 ALT 30 07/26/2021 AST 24 07/26/2021 No results found for: WBC, HGB, HCT, LABPLAT, MPV, RBC, MCV, MCH, MCHC, RDWCV, RDWSD, NRBCABS Lab Results Component Value Date CHOL 170 07/26/2021 TRIG 221 (H) 07/26/2021 HDL 42 07/26/2021 LDLCALC 84 07/26/2021 NONHDLCHOL 128 07/26/2021 CHOLHDL 4 07/26/2021 Testing: Diagnoses and Plan Diagnoses and all orders for this visit: Coronary artery disease involving [place] coronary artery of [place] heart without angina pectoris (Primary) Assessment & Plan: Patient continues to work in the [employer] without any limitations. He has not had any chest pain or shortness of breath with exertion. We discussed his last stress test from 2 years ago. We could wait for another stress test in a year or 2. No changes in cardiac medications at this time. Dyslipidemia Assessment & Plan: We discussed LDL cholesterol goal of less than 70 mg/dL. He has really not been at goal since 2017.He is agreeable to increasing the Lipitor to maximum dose of 80 mg p.o. q.d.. Another fasting lipid/liver panel in 6-8 weeks. Weight reduction with better diet also discussed with the patient. Orders: - Hepatic function panel; Future - Lipid panel; Future Other orders - amLODIPine (NORVASC) 5 mg tablet; Take 1 tablet (5 mg total) by mouth daily - atorvastatin (LIPITOR) 80 mg tablet; Take 1 tablet (80 mg total) by mouth daily Return in about 1 year (around 07/26/2022). 07/26/2021 8:36 AM Cristian Aguilar MD Cc:Brice Ulrich MD documented in this encounter Miscellaneous Notes * Assessment & Plan Note - Cristian Aguilar MD - 07/26/2021 8:34 AM CDT Associated Problem(s): Elevated LDL cholesterol level We discussed LDL cholesterol goal of less than 70 mg/dL. He has really not been at goal since 2017.He is agreeable to increasing the Lipitor to maximum dose of 80 mg p.o. q.d.. Another fasting lipid/liver panel in 6-8 weeks. Weight reduction with better diet also discussed with the patient. * Assessment & Plan Note - Cristian Aguilar MD - 07/26/2021 8:33 AM CDT Associated Problem(s): Coronary artery disease involving [place] coronary artery of [place] heart Patient continues to work in the [employer] without any limitations. He has not had any chest pain or shortness of breath with exertion. We discussed his last stress test from 2 years ago. We could wait for another stress test in a year or 2. No changes in cardiac medications at this time. documented in this encounter Plan of Treatment Not on file documented as of this encounter Visit Diagnoses Diagnosis Coronary artery disease involving [place] coronary artery of [place] heart without angina pectoris- Primary Dyslipidemia Other and unspecified hyperlipidemia documented in this encounter Discontinued Medications Medication Sig Discontinue Reason Start Date End Da te amLODIPine (NORVASC) 5 mg tablet Reorder 05/14/2020 07/26/2021 atorvastatin (LIPITOR) 40 mg tablet Take 1 tablet (40 mg total) by mouth daily Reorder 02/15/2021 07/26/2021 documented as of this encounter Care Teams Investigator Claims Relationship Specialty Start Date End Date Brice Ulrich MD PCP - General 04/18/17 documented as of this encounter
--- OUTSIDE RECORDS SUMMARY | 2024-12-06 19:53 | XMS_ITS | Encounter Summary ---
Author Organization [facility] Healthcare Address [address] [place] [address] Care Team Providers Care Lean Six Sigma Black Belt Name Role Phone Brice Ulrich MD Primary Care Provider [phone] Encounter Details Date Type Department Care Team (Late st Contact Info) Description 04/18/2017 6:33 AM CDT - 04/18/2017 11:59 PM CDT Hospital Encounter [facility] Cristian Aguilar MD [address] [place] [id number] Discharge Disposition: Discharge to home or self care Social History Tobacco Use Types Packs/Day Years Used Date Smoking Tobacco: Never Assessed Sex and Gender Information Value Date Recorded Sex Assigned at Not on file 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
--- OUTSIDE RECORDS SUMMARY | 2024-12-06 19:53 | XMS_ITS | Encounter Summary ---
Author Organization [facility] Address [address] [place] [address] Care Team Providers Care Communications Station Manager Name Role Phone Unavailable Primary Care Provider Unavailabl e Encounter Details Date Type Department Care Team (Latest Contact Info) Description 07/07/2009 6:08 AM CDT - 07/07/2009 11:59 PM CDT Hospital Encounter [facility] Cristian Jiang MD [address] [place] [address] [address] Shortness of breath; Atrial fibrillation (CMS/HCC) (HCC); Coronary atherosclerosis of [place] coronary artery; Postsurgical percutaneous transluminal coronary angioplasty status; Other chronic pulmonary heart diseases Social History Tobacco Use Types Packs/Day Years Used Date Smoking Tobacco: Never Assessed Sex and Gender Information Value Date Recorded Sex Assigned at Not on file 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
--- OUTSIDE RECORDS SUMMARY | 2024-12-06 19:53 | XMS_ITS | Encounter Summary ---
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
--- OUTSIDE RECORDS SUMMARY | 2024-12-06 19:53 | XMS_ITS | Encounter Summary ---
Author Organization 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
--- OUTSIDE RECORDS SUMMARY | 2024-12-06 19:53 | XMS_ITS | Encounter Summary ---
Author Organization [facility] Address [address] [place] [address] Care Team Providers Care Urgent Care Physician Assistant Name Role Phone Brice Ulrich MD Primary Care Provider [phone] Reason for Referral * Procedure (Routine) - Closed Specialty Diagnoses / Procedures Referred By Contac t Referred To Contact Diagnoses Chronic obstructive pulmonary disease, unspecified COPD type (HCC) Procedures Pulmonary Function Test -[facility]; Complete/Full (Spirometry, Pleth and DLCO) Sloan Cramer MD Phone: tel: fax: [address] [phone] Referral ID Status Reason Start Date Expiration Date Visits Re quested Visits Authorized [id number] Closed 12/28/2022 01/27/2024 1 1 Reason for Visit * Procedure (Routine) - Closed Specialty Diagnoses / Procedures Referred By Contac t Referred To Contact Diagnoses Chronic obstructive pulmonary disease, unspecified COPD type (HCC) Procedures Pulmonary Function Test -[facility]; Complete/Full (Spirometry, Pleth and DLCO) Sloan Cramer MD Phone: tel: fax: [address] [phone] Referral ID Status Reason Start Date Expiration Date Visits Re quested Visits Authorized [id number] Closed 12/28/2022 01/27/2024 1 1 Encounter Details Date Type Department Care Team (Latest Contact Info) Description 03/29/2023 8:19 AM CDT - 03/29/2023 11:59 PM CDT Hospital Encounter [facility] Respiratory [address] [place] [phone] Chronic obstructive pulmonary disease, unspecified COPD type (HCC) Discharge Disposition: Discharge to home or self care Social History Tobacco Use Types Packs/Day Years Used Date Smoking Tobacco: Former Cigarettes 1 25 Smokeless Tobacco: Never Sex and Gender Information Value Date Recorded Sex Assigned at Not on file 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 Gender Identity Not on file Sexual Orientation Not on file documented as of this encounter Medications at Time of Discharge ascorbic acid (VITAMIN C) 500 mg tablet,chewable Take 1 tablet/chew tab (500 mg total) by mouth daily cyanocobalamin (Vitamin B-12) 1,000 mcg tabletIndications :Prevention of Vitamin B12 Deficiency Take 1 tablet [...] by mouth daily 90 tablet 3 10/17/2022 12/19/2023 atorvastatin (LIPITOR) 80 mg tablet Take 1 tablet (80 mg total) by mouth daily 90 tablet 3 02/26/2023 02/20/2024 clopidogreL (PLAVIX) 75 mg tablet Take 1 tablet (75 mg total) by mouth daily 90 tablet 3 05/18/2022 05/25/2023 lisinopriL (PRINIVIL,ZESTRIL ) 40 mg tablet Take 1 tablet (40 mg total) by mouth daily 90 tablet 3 02/26/2023 02/25/2024 metoprolol (LOPRESSOR) 100 mg tablet Take 1 tablet (100 mg total) by mouth 2 (two) times a day 180 tablet 3 03/02/2023 08/04/2024 documented as of this encounter Discharge Disposition Disposition Code Departure Means Destination Discharge to home or self care documented in this encounter Plan of Treatment Not on file documented as of this encounter Procedures Procedure Name Priority Date/Time Associated Diagnosis Comments PULMONARY FUNCTION TEST (PFT) Routine 03/29/2023 10:27 AM CDT Chronic obstructive pulmonary disease, unspecified COPD type (HCC) documented in this encounter Results * Pulmonary Function Test -[facility]; Complete/Full (Spirometry, Pleth and DLCO) (03/29/2023 10:27 AM CDT) Anatomical Region Laterality Modality PFT Impressions 04/03/2023 4:37 AM CDT 1. ??FEV1/FVC ratio is approaching the lower limits of normal. ??With a significant positive bronchodilator response and severe air trapping I believe this is consistent with a mild to moderate obstructive ventilatory limitation 2. ??Normal diffusion capacity Electronically signed by Sloan Cramer MD Pulmonary & Critical Care Narrative 04/03/2023 4:37 AM CDT PULMONARY FUNCTION TESTS Simeon A Corzine 57 y.o. 04/03/2023 INTERPRETATION Please see technologist's comments mentioned in attached results report. SPIROMETRY: ??Pre bronchodilator FEV1 is 69 % predicted, FVC is 80 % predicted, FEV1/FVC is 0.66 Bronchodilator response: ??Yes Inspection of the patient's flow-volume loops shows: ??Normal configuration of the inspiratory and expiratory limbs. LUNG VOLUMES: Lung volumes by body plethysmography: ??TLC is 101 % predicted, RV is 168 % predicted DLCO: ??Unadjusted for hemoglobin and carboxyhemoglobin DLCO is 98 % predicted AIRWAY RESISTANCE: The airway resistance is increased and the specific conductance is decreased us Sloan Cramer MD PFT ORDERABLES Final Result documented in this encounter Visit Diagnoses Diagnosis Chronic obstructive pulmonary disease, unspecified COPD type (HCC) documented in this encounter Care Teams Urgent Care Physician Assistant Relationship Specialty Start Date End Date Brice Ulrich MD PCP - General 04/18/17 documented as of this encounter
--- OUTSIDE RECORDS SUMMARY | 2024-12-06 19:53 | XMS_ITS | Encounter Summary ---
Author Organization [facility] Healthcare Address [address] [place] [address] Care Team Providers Care [place] Stayer Machine Operator Name Role Phone Unavailable Primary Care Provider Unavailabl e Encounter Details Date Type Department Care Team (Late st Contact Info) Description 06/26/2007 12:01 AM CDT - 07/26/2007 11:59 PM CDT Hospital Encounter [facility] Cristian Jiang MD [address] [place] [address] [address] Social History Tobacco Use Types Packs/Day Years Used Date Smoking Tobacco: Never Assessed Sex and Gender Information Value Date Recorded Sex Assigned at Not on file 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
--- OUTSIDE RECORDS SUMMARY | 2024-12-06 19:53 | XMS_ITS | Encounter Summary ---
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 Borderline High: ?200 - 239 mg/dl ? High: ??Greater than ?? 239 mg/dl Current interpretive data was last revised on 2015. Triglycerides 122.0 <=150.0 mg/dL [facility] Comment: Interpretive Data Normal: ? Less than 150 mg/dl Borderline high: ??105-199 mg/dl ?? High: ? 200-499 mg/dl ? Very high: ??Greater than or equal to 500 mg/dl Current interpretive data was last revised on 2015. HDL 49 40 - 60 mg/dL [facility] Comment: Interpretive Data Low HDL Cholesterol: ? Less than 40 mg/dl Normal HDL Cholesterol: ??40-60 mg/dl High HDL Cholesterol: ?Greater than 60 mg/dl Current interpretive data was last revised on 2015. LDL, calculated 71 mg/dL [facility] Comment: Interpretive Data Optimal ? Less than 100 mg/dL ? Near optimal/Above optimal ??100 - 129 mg/dL ? Borderline high ? 130 - 159 mg/dL ? High ?160 - 189 mg/dL ? Very high ? Greater than or = 190 mg/dL ? LDL values are not valid when the total Triglyceride is greater than 300 mg/dL. Current interpretive data was last revised on 2015. Non-HDL Cholesterol 95 mg/dL [facility] ([place]) Comment: Interpretive Data Optimal ? Less than 130 mg/dL Low Risk ?130 - 159 mg/dL Moderate Risk ? 160 - 189 mg/dL High Risk ? Greater than or equal to 190 mg/dL Current interpretive data was last revised on 2015. Blood specimen (specimen) 04/18/2017 6:43 AM CDT 04/18/2017 8:24 AM CDT us Cristian Aguilar MD LAB BLOOD ORDERABLES Final Re sult [facility] ([place]) [address] [facility] Department [place] [address] documented in this encounter Visit Diagnoses Not on filedocumented in this encounter Care Teams Medical Center Manager Relationship Specialty Start Date End Date Brice Ulrich MD PCP - General 04/18/17 documented as of this encounter
--- OUTSIDE RECORDS SUMMARY | 2024-12-06 19:53 | XMS_ITS | Encounter Summary ---
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
--- OUTSIDE RECORDS SUMMARY | 2024-12-06 19:53 | XMS_ITS | Encounter Summary ---
Author Organization [facility] Address [address] [address] Care Team Providers Care Roll Edge Machine Operator Name Role Phone Brice Ulrich MD Primary Care Provider [phone] Reason for Referral * Procedure (Routine) - Closed Specialty Diagnoses / Procedures Referred By Contac t Referred To Contact Diagnoses Chronic obstructive pulmonary disease, unspecified COPD type (HCC) Procedures Pulmonary Function Test -[facility]; Complete/Full (Spirometry, Pleth and DLCO) Sloan Cramer MD Phone: tel: fax: [address] [address] Referral ID Status Reason Start Date Expiration Date Visits Re quested Visits Authorized [id number] Closed 12/28/2022 01/27/2024 1 1 PANCY SPECIALIST Reason for Visit * Reason Comments COPD * Consultation (Routine) - Closed Specialty Diagnoses / Procedures Referred By Contac t Referred To Contact Pulmonary Disease / Pulmonology Diagnoses Chronic obstructive pulmonary disease, unspecified COPD type (HCC) Cristian Aguilar MD [address] [place] [id number] Phone: tel: fax: Sloan Cramer MD Phone: tel: fax: Referral ID Status Reason Start Date Expiration Date V isits Requested Visits Authorized [id number] Closed Specialty Services Required 10/17/2022 11/16/2023 6 6 Encounter Details Date Type Department Care Team (Late st Contact Info) Description 12/28/2022 10:30 AM OCCUPANCY SPECIALIST Office Visit [facility] Pulmonary at [address] [place] [address] Sloan Cramer MD [address] [place] [address] [address] [place] [address] Chronic obstructive pulmonary disease, unspecified COPD type (HCC) (Primary Dx); Cigarette nicotine dependence in remission; Pulmonary hypertension (CMS/HCC) (HCC) Social History Tobacco Use Types Packs/Day Years Used Date Smoking Tobacco: Former Cigarettes 1 25 Smokeless Tobacco: Never Tobacco Cessation:Counseling Given: Not Answered Sex and Gender Information Value Date Recorded Sex Assigned at Not on file Legal Sex Male 12:13 PM OCCUPANCY SPECIALIST Gender Identity Not on file Sexual Orientation Not on file documented as of this encounter Last Filed Vital Signs Vital Sign Reading Time Taken Comments Blood Pressure 126/70 12/28/2022 10:11 AM OCCUPANCY SPECIALIST Pulse 104 12/28/2022 10:11 AM OCCUPANCY SPECIALIST Temperature 36.4 ??C (97.5 ??F) 12/28/2022 1 0:11 AM OCCUPANCY SPECIALIST Respiratory Rate 18 12/28/2022 10:1 1 AM OCCUPANCY SPECIALIST Oxygen Saturation 96% 12/28/2022 10: 11 AM OCCUPANCY SPECIALIST Inhaled Oxygen Concentration - - Weight 136.9 kg (301 lb 12.8 oz) 2022 10:11 AM OCCUPANCY SPECIALIST Height 193 cm (6' 4 ) 12/28/2022 10:11 AM OCCUPANCY SPECIALIST Body Mass Index 36.74 12/28/2022 10:11 AM OCCUPANCY SPECIALIST documented in this encounter Progress Notes * Sloan Cramer MD - 12/28/2022 10:30 AM CST Images from the original note were not included. PULMONARY CLINIC NOTE Visit Date: 12/28/2022 Chief Complaint: Presents today for Dyspnea on exertion HPI: Simeon Reed is a 57 y.o. male w/ PMH of CAD s/p [place] in 2006 who presents on 12/28/2022 for evaluation of dyspnea on exertion. The patient reports dyspnea that is chronic, waxing and waning. Notes improved dyspnea with weight loss Interval History: Reports using an albuterol inhaler at times. He and his indicate that he wheezes at times. She believes he stops breathing and has issues with chronic fatigue. He has never undergone sleep study. No fevers, chills or night sweats Exposure History: Possible benzene exposure below his home. 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 OBJECTIVE: Physical Exam: Vitals: 12/28/22 1011 BP: 126/70 BP Location: Left arm Patient Position: Sitting Pulse: 104 Resp: 18 Temp: 36.4 ??C (97.5 ??F) TempSrc: Temporal SpO2: 96% Weight: (!) 136.9 kg (301 lb 12.8 oz) Height: 193 cm (6' 4 ) [...] hepatic function panel Pulmonary Functions Testing Results: None to review ASSESSMENT AND PLAN 1. Chronic obstructive pulmonary disease, unspecified COPD type (HCC) - suspect some obstructive lung disease - will confirm with complete pulmonary function testing - will likely start inhaled therapies pending results - Ambulatory referral to Pulmonology - Pulmonary Function Test -[facility]; Complete/Full (Spirometry, Pleth and DLCO); Future 2. Cigarette nicotine dependence in remission - [...] diagnosis would need to come first - they will defer at this time Sloan Cramer MD There may be syntax/grammatical errors in this note due to the use of voice recognition software. PANCY SPECIALIST documented in this encounter Plan of Treatment Not on file documented as of this encounter Results * Pulmonary Function Test -[facility]; Complete/Full (Spirometry, Pleth and DLCO) (03/29/2023 [...] increased and the specific conductance is decreased Sloan Cramer MD PFT ORDERABLES Final Result documented in this encounter Visit Diagnoses Diagnosis Chronic obstructive pulmonary disease, unspecified COPD type (HCC)- Primary Cigarette nicotine dependence in remission Pulmonary hypertension (HCC) Other chronic pulmonary heart diseases Chronic obstructive pulmonary disease, unspecified COPD type (HCC) documented in this encounter Historical Medications * This list may reflect changes made after this encounter. ibuprofen (ADVIL,MOTRIN) 800 mg tablet Take 1 tablet (800 mg total) by mouth every 6 (six) hours as needed for pain added in this encounter Orders Outpatient Referral Count Last Ordered Date Fir st Ordered Date AMB REFERRAL TO PULMONOLOGY 1 12/28/2022 documented in this encounter Care Teams Roll Edge Machine Operator Relationship Specialty Start Date End Date Brice Ulrich MD PCP - General 04/18/17 documented as of this encounter
--- OUTSIDE RECORDS SUMMARY | 2024-12-06 19:53 | XMS_ITS | Encounter Summary ---
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
--- OUTSIDE RECORDS SUMMARY | 2024-12-06 19:53 | XMS_ITS | Encounter Summary ---
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
--- OUTSIDE RECORDS SUMMARY | 2024-12-06 19:53 | XMS_ITS | Encounter Summary ---
Author Organization [facility] Address [address] [facility] [address] [place] [address] Care Team Providers Care Outdoor Landscape Architect Name Role Phone Brice Ulrich MD Primary Care Provider [phone] Reason for Visit * Reason Comments Coronary Artery Disease Encounter Details Date Type Department Care Team (Late st Contact Info) Description 06/15/2020 8:30 AM CDT Office Visit [place] [facility] Policy Analyst [facility] [address] [place] [address] Cristian Aguilar MD [address] [place] [address] [address] [place] [address] Dyslipidemia (Primary Dx) Social History Tobacco Use Types Packs/Day Years Used Date Smoking Tobacco: Former Smokeless Tobacco: Never Sex and Gender Information Value Date Recorded Sex Assigned at Not on file 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 Gender Identity Not on file Sexual Orientation Not on file documented as of this encounter Last Filed Vital Signs Vital Sign Reading Time Taken Comments Blood Pressure 137/91 06/15/2020 8:46 AM CDT Pulse 66 06/15/2020 8:46 AM CDT Temperature 36.4 ??C (97.5 ??F) 06/15/2020 8:46 AM CD T Respiratory Rate 18 06/15/2020 8:46 AM CDT Oxygen Saturation - - Inhaled Oxygen Concentration - - Weight 133.8 kg (295 lb) 06/15/2020 8:46 AM CDT Height 193 cm (6' 4 ) 06/15/2020 8:46 AM CDT Body Mass Index 35.91 06/15/2020 8:46 AM CDT documented in this encounter Progress Notes * Cristian Aguilar MD - 06/15/2020 8:30 AM CDT Cardiology note Reason for Office Visit: Chief Complaint Patient presents with ??? Coronary Artery Disease History of Present Illness: Simeon Reed is a 54 y.o. male who was last seen here over a year ago. 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 Review of Systems: Review of Systems Constitution: Negative for decreased appetite, diaphoresis, fever, weight [...] Refill ??? amLODIPine (NORVASC) 5 mg tablet ??? ascorbic acid (ascorbic acid with pardeep hips) 500 mg tablet,chewable Take 500 mg by mouth daily ??? atorvastatin (LIPITOR) 40 mg tablet Take 1 tablet (40 mg total) by mouth daily 90 tablet 3 ??? clopidogreL (PLAVIX) 75 mg tablet Take 75 mg by mouth daily ??? cyanocobalamin (Vitamin B-12) 1,000 mcg tablet Take 1,000 mcg by mouth daily ??? lisinopriL (PRINIVIL,ZESTRIL) 40 mg tablet Take 1 tablet (40 mg total) by mouth daily 90 tablet3 ??? metoprolol (LOPRESSOR) 100 mg tablet Take 100 mg by mouth 2 (two) times a day ??? vitamin E (vitamin E) 400 unit capsule Take 400 Units by mouth daily No current facility-administered medications for this visit. Vital Signs: Vitals BP 137/91 (BP Location: Right arm, Patient Position: Sitting) Pulse 66 Temp 36.4 ??C (97.5 ??F) Resp 18 Ht 193 cm (6' 4 ) Wt 133.8 kg (295 lb) BMI 35.91 kg/m?? Vitals: 06/15/20 0846 BP: 137/91 Pulse: 66 Resp: 18 Temp: 36.4 ??C (97.5 ??F) Wt Readings from Last 3 Encounters: 06/15/20 133.8 kg (295 lb) Body mass index is 35.91 kg/m??. Physical Exam: Physical Exam Constitutional: He is oriented to person, place, and time. He appears well- developed and well-nourished. No distress. HENT: Mouth/Throat: No oropharyngeal exudate. Eyes: Pupils are equal, round, and reactive to light. EOM are normal. Neck: No JVD present. No tracheal deviation present. Cardiovascular: Normal rate, regular rhythm, S1 normal, S2 normal and intact distal pulses. Exam reveals no gallop and no decreased pulses. No murmur heard. Pulmonary/Chest: Effort normal. He has no decreased breath sounds. He has no wheezes. He has no rhonchi. He has no rales. Abdominal: Soft. Normal appearance and bowel sounds are normal. Neurological: He is alert and oriented to person, place, and time. Skin: Skin is warm and dry. He is not diaphoretic. Labs: No results found for: INR No results found for: PT No results found for: TSH, T3FREE, FREET4 Lab Results Component Value Date AST 26 04/18/2017 ALT 33 04/18/2017 ALKPHOS 66 04/18/2017 ALBUMIN 4.5 04/18/2017 No results found for: SODIUM, POTASSIUM, CHLORIDE, CO2, ANIONGAP, BUN, CK, GLUCOSEUR No results found for: BNP Lab Results Component Value Date ALBUMIN 4.5 04/18/2017 Lab Results Component Value Date BILITOT 0.5 04/18/2017 ALBUMIN 4.5 04/18/2017 ALKPHOS 66 04/18/2017 ALT 33 04/18/2017 AST 26 04/18/2017 No results found for: WBC, HGB, HCT, LABPLAT, MPV, RBC, MCV, MCH, MCHC, RDWCV, RDWSD, NRBCABS Lab Results Component Value Date CHOL 144 04/18/2017 TRIG 122.0 04/18/2017 HDL 49 04/18/2017 LDLCALC 71 04/18/2017 NONHDLCHOL 95 04/18/2017 Testing: Diagnoses and Plan Diagnoses and all orders for this visit: Dyslipidemia (Primary) Assessment & Plan: Patient agreeable to getting a fasting lipid liver panel now. We discussed LDL cholesterol goal less than 70 mg/dL. No changes in medication for now. Return in about 1 year (around 06/15/2021). 06/15/2020 9:17 AM Cristian Aguilar MD Cc:Brice Ulrich MD documented in this encounter Miscellaneous Notes * Assessment & Plan Note - Cristian Aguilar MD - 06/15/2020 9:16 AM CDT Associated Problem(s): Coronary artery disease involving [place] coronary artery of [place] heart We discussed normal stress test from last year. He has no left upper extremity pain like before. Noshortness of breath. No change in medications. * Assessment & Plan Note - Cristian Aguilar MD - 06/15/2020 9:15 AM CDT Associated Problem(s): Elevated LDL cholesterol level Patient agreeable to getting a fasting lipid liver panel now. We discussed LDL cholesterol goal less than 70 mg/dL. No changes in medication for now. documented in this encounter Plan of Treatment Not on file documented as of this encounter Visit Diagnoses Diagnosis Dyslipidemia- Primary Other and unspecified hyperlipidemia documented in this encounter Historical Medications * This list may reflect changes made after this encounter. ascorbic acid (VITAMIN C) 500 mg tablet,chewable Take 1 tablet/chew tab (500 mg total) by mouth daily cyanocobalamin (Vitamin B-12) 1,000 mcg tabletIndications :Prevention of Vitamin B12 Deficiency Take 1 tablet (1,000 mcg total) by mouth daily vitamin E (AQUASOL E) 400 unit capsule Take 1 capsule (400 Units total) by mouth daily clopidogreL (PLAVIX) 75 mg tablet Take 75 mg by mouth daily 02/28/2021 metoprolol (LOPRESSOR) 100 mg tablet Take 100 mg by mouth 2 (two) times a day 02/28/2021 amLODIPine (NORVASC) 5 mg tablet 05/14/2020 07/26/2021 added in this encounter Care Teams Outdoor Landscape Architect Relationship Specialty Start Date End Date Brice Ulrich MD PCP - General 04/18/17 documented as of this encounter
--- OUTSIDE RECORDS SUMMARY | 2024-12-06 19:53 | XMS_ITS | Encounter Summary ---
Author Organization [facility] Address [address] [address] Care Team Providers Care Lapper Name Role Phone Brice Ulrich MD Primary Care Provider [phone] Reason for Referral * Consultation (Routine) - Closed Specialty Diagnoses / Procedures Referred By Contac t Referred To Contact Pulmonary Disease / Pulmonology Diagnoses Chronic obstructive pulmonary disease, unspecified COPD type (HCC) Manny Aguilar MD [address] [place] [address] [address] OJEDA [address] [place] [address] Phone: tel: fax: Sloan Foss MD Phone: tel: fax: Referral ID Status Reason Start Date Expiration Date V isits Requested Visits Authorized [id number] Closed Specialty Services Required 10/17/2022 11/16/2023 6 6 Question Answer Please select the performing region: [facility] [[id number]] Please select the performing department: [facility] [id number] [[id number]] To provider: SLOAN FOSS [[id number]] # of visits: 1 ESSIONAL BENEFITS SALES CONSULTANT * Cardiology (Routine) - Closed Specialty Diagnoses / Procedures Referred By Contac t Referred To Contact Diagnoses Coronary artery disease involving grayling coronary artery of grayling heart without angina pectoris Procedures Transthoracic Echo (TTE) Complete W Doppler/CF Manny Aguilar MD [address] [place] [address] DR OJEDA [address] [place] [address] Phone: tel: fax: [facility] [address] [place] [address] Referral ID Status Reason Start Date Expiration Date Visits Re quested Visits Authorized [id number] Closed 10/17/2022 11/16/2023 1 1 ESSIONAL BENEFITS SALES CONSULTANT Reason for Visit * Reason Comments Follow-up Yearly Encounter Details Date Type Department Care Team (Late st Contact Info) Description 10/17/2022 8:00 AM PROFESSIONAL BENEFITS SALES CONSULTANT Office Visit [facility] [address] [facility] [address] [place] [address] Manny Aguilar MD [address] [place] [address] [address] [place] [address] Coronary artery disease involving grayling coronary artery of grayling heart without angina pectoris (Primary Dx); Elevated LDL cholesterol level; Chronic obstructive pulmonary disease, unspecified COPD type (HCC); Primary hypertension Social History Tobacco Use Types Packs/Day Years Used Date Smoking Tobacco: Former Smokeless Tobacco: Never Sex and Gender Information Value Date Recorded Sex Assigned at Not on file Legal Sex Male 12:13 PM PROFESSIONAL BENEFITS SALES CONSULTANT Gender Identity Not on file Sexual Orientation Not on file documented as of this encounter Last Filed Vital Signs Vital Sign Reading Time Taken Comments Blood Pressure 163/97 10/17/2022 7:58 AM PROFESSIONAL BENEFITS SALES CONSULTANT Pulse 72 10/17/2022 7:58 AM PROFESSIONAL BENEFITS SALES CONSULTANT Temperature - - Respiratory Rate 20 10/17/2022 7:58 AM PROFESSIONAL BENEFITS SALES CONSULTANT Oxygen Saturation - - Inhaled Oxygen Concentration - - Weight 134.7 kg (297 lb) 10/17/2022 7:58 AM PROFESSIONAL BENEFITS SALES CONSULTANT Height 193 cm (6' 4 ) 10/17/2022 7:58 AM PROFESSIONAL BENEFITS SALES CONSULTANT Body Mass Index 36.15 10/17/2022 7:58 AM PROFESSIONAL BENEFITS SALES CONSULTANT documented in this encounter Ordered Prescriptions Prescription Sig Dispense Quantity Refills Last Filled Start Date End Date amLODIPine (NORVASC) 10 mg tablet Take 1 tablet (10 mg total) by mouth daily 90 tablet 3 10/17/2022 12/19/2023 documented in this encounter Progress Notes * Manny Aguilar MD - 10/17/2022 8:00 AM CST Cardiology note Reason for Office Visit: Follow-up on CAD Chief Complaint Patient presents with Follow-up Yearly History of Present Illness: Db Reed is a 57 y.o. male last seen about 15 months ago. He says he feels ???great?? . 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 I advised him to check on that with the flight medical grade shoemaker. Certainly seems to be stable from cardiac standpoint. Review of Systems: Review of Systems Constitutional: [...] pertinent family history. Social History Tobacco Use Smoking status: Former Smokeless tobacco: Never Substance and Sexual Activity Drug use: None Sexual activity: None Alcohol Use: Not on file Allergies: No Known Allergies Medications: Current Outpatient Medications Medication Sig Dispense Refill amLODIPine (NORVASC) 5 mg tablet Take 1 tablet (5 mg total) by mouth daily 90 tablet 3 ascorbic acid (VITAMIN C) 500 mg tablet,chewable Take 500 mg by mouth daily atorvastatin (LIPITOR) 80 mg tablet Take 1 tablet (80 mg total) by mouth daily 90 tablet 3 clopidogreL (PLAVIX) 75 mg tablet Take 1 tablet (75 mg total) by mouth daily 90 tablet 3 cyanocobalamin (Vitamin B-12) 1,000 mcg tablet Take 1,000 mcg by mouth daily lisinopriL (PRINIVIL,ZESTRIL) 40 mg tablet Take 1 tablet (40 mg total) by mouth daily 90 tablet 3 metoprolol (LOPRESSOR) 100 mg tablet Take 1 tablet (100 mg total) by mouth 2 (two) times a day 180 tablet 3 vitamin E (AQUASOL E) 400 unit capsule Take 400 Units by mouth daily No current facility-administered medications for this visit. Vital Signs: Vitals BP 163/97 (BP Location: Left arm, Patient Position: Sitting) Pulse 72 Resp 20 Ht 193 cm (6' 4 ) Wt 134.7 kg (297 lb) BMI 36.15 kg/m?? Vitals: 10/17/22 0758 BP: 163/97 Pulse: 72 Resp: 20 Wt Readings from Last 3 Encounters: 10/17/22 134.7 kg (297 lb) 07/26/21 130.6 kg (288 lb) 06/15/20 133.8 kg (295 lb) Body mass index is 36.15 kg/m??. Physical Exam: Physical Exam Constitutional: General: [...] for this visit: Coronary artery disease involving grayling coronary artery of grayling heart without angina pectoris (Primary) Assessment & Plan: Discussed cardiac catheterization findings from 15 years ago. He is not having any chest pain with exertion but has some shortness of breath with moderate exertion. Apparently has diagnosis of ???severe COPD?? by Dr. Spain many years ago. So, I advised him to see Dr. Cuellar for evaluation and treatment. He only has a few puffs left from and inhaler from many years ago. There is no echo on [facility], so I will get an echocardiogram ordered. I also advised him to lose some weight as he appears to have gained 10 lb over the past year. Orders: - Transthoracic Echo (TTE) Complete W Doppler/CF; Future Elevated LDL cholesterol level Assessment & Plan: We discussed LDL cholesterol goal of less than 70 mg/dL He has not been at goal and I want to add Zetia. He wants me to check it again so I will get another lipid/liver panel now. If still high, I will add Zetia. Orders: - Hepatic function panel; Future - Lipid panel; Future Chronic obstructive pulmonary disease, unspecified COPD type (HCC) - Ambulatory referral to Pulmonology; Future Primary hypertension Assessment & Plan: We discussed today's high blood pressure 163/97. He tells me that takes his blood pressure every few weeks and they were okay. He keeps tellingme that he feels ???great?? . I advised him to increase the Norvasc to 10 mg daily and keep an eye on his blood pressures. Return in about 1 year (around 10/17/2023). 10/17/2022 8:19 AM Manny Aguilar MD Cc:Brice Ulrich MD ESSIONAL BENEFITS SALES CONSULTANT documented in this encounter Miscellaneous Notes * Assessment & Plan Note - Manny Aguilar MD - 10/17/2022 8:16 AM PROFESSIONAL BENEFITS SALES CONSULTANT Associated Problem(s): Primary hypertension We discussed today's high blood pressure 163/97. He tells me that takes his blood pressure every few weeks and they were okay. He keeps tellingme that he feels ???great?? . I advised him to increase the Norvasc to 10 mg daily and keep an eye on his blood pressures. ESSIONAL BENEFITS SALES CONSULTANT * Assessment & Plan Note - Manny Aguilar MD - 10/17/2022 8:15 AM PROFESSIONAL BENEFITS SALES CONSULTANT Associated Problem(s): Coronary artery disease involving grayling coronary artery of grayling heart Discussed cardiac catheterization findings from 15 years ago. He is not having any chest pain with exertion but has some shortness of breath with moderate exertion. Apparently has diagnosis of ???severe COPD?? by Dr. Spain many years ago. So, I advised him to see Dr. Cuellar for evaluation and treatment. He only has a few puffs left from and inhaler from many years ago. There is no echo on epic, so I will get an echocardiogram ordered. I also advised him to lose some weight as he appears to have gained 10 lb over the past year. ESSIONAL BENEFITS SALES CONSULTANT ESSIONAL BENEFITS SALES CONSULTANT * Assessment & Plan Note - Manny Aguilar MD - 10/17/2022 8:14 AM PROFESSIONAL BENEFITS SALES CONSULTANT Associated Problem(s): Elevated LDL cholesterol level We discussed LDL cholesterol goal of less than 70 mg/dL He has not been at goal and I want to add Zetia. He wants me to check it again so I will get another lipid/liver panel now. If still high, I will add Zetia. ESSIONAL BENEFITS SALES CONSULTANT documented in this encounter Plan of Treatment Scheduled Referrals Name Type Priority Associated Diagnoses Orde r Schedule Ambulatory referral to Pulmonology Outpatient Referral Routine Chronic obstructive pulmonary disease, unspecified COPD type (HCC) Expected: 10/17/2022 (Approximate), Expires: 04/16/2024 documented as of this encounter Results * TRANSTHORACIC ECHO (TTE) COMPLETE W DOPPLER/CF WO CONTRAST (12/07/2022 7:57 AM PROFESSIONAL BENEFITS SALES CONSULTANT) Anatomical Region Laterality Modality Ultrasound 12/07/2022 7:28 AM PROFESSIONAL BENEFITS SALES CONSULTANT Narrative 12/07/2022 11:08 AM PROFESSIONAL BENEFITS SALES CONSULTANT [address] [address] Echocardiogram Report Patient Name: DB REED : 1965 Study Date: 12/07/2022 7:28:12 AM Gender: M Tech: Location: Echo Lab 1 Ref.Provider: MANNY AGUILAR Height(Cm): 193 BSA: 2.61 Weight(Kg): 127 Quality: Technically Difficult Study Order Provider: MANNY AGUILAR Procedures: Echocardiographic Report: Transthoracic echocardiogram with complete 2D, M-Mode, and color Doppler examination. Indications: Coronary artery disease involving grayling coronary artery of grayling heart without angina pectoris. Measurements: 2D/M Mode ?Doppler ? Measurement ?Value ?Normal Range ? Measurement ?Value ?Normal Range ? EF Teich MM ?55.2 ? [ 55.0 - 70.0 ] percent ?NIEVES Vmax ? 3.92 ? [ 2.00 - 4.00 ] cm2 ? LVIDd MM ? 5.39 ? [ 4.20 - 5.90 ] cm ? AV Mean PG ? 5 ?[ 2 - 4 ] mmHg ? LVIDs MM ? 3.83 ? [ 2.30 - 3.90 ] cm ? AV Peak Dano ?1.49 ? [ 1.00 - 1.70 ] m/s ? LVPWd MM ? 1.02 ? [ 0.60 - 1.00 ] cm ? AV VTI ? 30.64 ?cm ? IVSd MM ?1.41 ? [ 0.60 - 0.90 ] cm ? LVOT Diam ?2.17 ? [ 1.70 - 2.10 ] cm ? LA Dimension 2D ?4.84 ? [ 3.00 - 4.00 ] cm ? LVOT Peak Dano ?1.57 ? [ 0.70 - 1.10 ] m/s ? AoR Diam MM ?2.73 ? [ 2.60 - 3.70 ] cm ? LVOT VTI ? 30.76 ?[ 20.00 - 30.00 ] cm ? ACS MM ? 1.52 ? [ 1.50 - 2.60 ] cm ? MV E Peak Dano ?1.02 ? [ 0.60 - 1.30 ] m/s ? MV A Peak Dano ?1.16 ? [ 1.00 - 1.20 ] m/s ? MV Mean PG ? 3 ?[ <= 5 ] mmHg ? MV PHT ? 46 ? [ 20 - 100 ] msec ? MVA ?4.80 ? MV Decel Time ?159 ?[ 104 - 258 ] msec ? PV Peak Dano ?1.00 ? [ 0.40 - 0.80 ] m/s ? TR Peak Dano ?2.83 ? [ 1.00 - 2.80 ] m/s ? TR Peak PG ? 32 ? mmHg ? RVSP ? 40.00 ?[ 10.00 - 36.00 ] mmHg ? E` ? 0.10 ? cm/sec ? E/E` ? 10.32 ?[ <= 10.00 ] ? PA Pressure ?40.00 ?[ 10.00 - 36.00 ] mmHg ? - Findings: Atrial Septum: The atrial septum is not well visualized. Left Ventricle: Normal global left ventricular systolic function. Ejection fraction is visually estimated at 55 to 60 %. Left Atrium: The left atrium is normal in size. Right Ventricle: Normal right ventricular size. Right Atrium: The right atrium is normal in size. Aortic Valve: Aortic cusps appear mildly sclerotic. Mitral Valve: Normal structure of the mitral valve. Trivial regurgitation of the mitral valve. Pulmonic Valve: Pulmonic valve not well visualized. Tricuspid Valve: Normal structure of the tricuspid valve. Mild pulmonary hypertension based on right ventricular systolic pressure. Estimated peak RVSP is 42 to 46 mmHg. Trivial regurgitation in the tricuspid valve. Pericardium: There is an anterior echo free space consistent with epicardial fat pad. Aorta: Normal aortic root. IVC: The IVC is not well visualized. Conclusions: Normal global left ventricular systolic function. Ejection fraction is visually estimated at 55 to 60 %. Normal structure of the mitral valve. Trivial regurgitation of the mitral valve. Aortic cusps appear mildly sclerotic. Normal structure of the tricuspid valve. Mild pulmonary hypertension based on right ventricular systolic pressure. Estimated peak RVSP is 42 to 46 mmHg. Trivial regurgitation in the tricuspid valve. Technically difficult study with limited views. Electronically Signed By: Dr Manny Aguilar 2022-12-07 11:08:04 PROFESSIONAL BENEFITS SALES CONSULTANT CC: CC: Procedure Note Manny Aguilar MD - 12/07/[address] [place] [address] Echocardiogram Report Patient Name: DB REEDPatient ID: [id number] : [id number] Date: 12/07/2022 7:28:12 AM Gender: MAccession #: [id number] Tech: JCLocation: Echo Lab 1 Ref.Provider: MANNY AGUILARHeight(Cm): 193 BSA: 2.61Weight(Kg): 127 Quality: Technically Difficult StudyOrder Provider: MANNY AGUILAR Procedures: Echocardiographic Report: Transthoracic echocardiogram with complete 2D, M-Mode, and color Dopplerexamination. Indications: Coronary artery disease involving grayling coronary artery of grayling heartwithout angina pectoris. Measurements: 2D/M Mode Doppler Measurement Value Normal Range MeasurementValue Normal Range EF Teich MM 55.2 [ 55.0 - 70.0 ] percent NIEVES Vmax3.92 [ 2.00 - 4.00 ] cm2 LVIDd MM 5.39 [ 4.20 - 5.90 ] cm AV Mean PG 5[ 2 - 4 ] mmHg LVIDs MM 3.83 [ 2.30 - 3.90 ] cm AV Peak Vel1.49 [ 1.00 - 1.70 ] m/s LVPWd MM 1.02 [ 0.60 - 1.00 ] cm AV VTI30.64 cm IVSd MM 1.41 [ 0.60 - 0.90 ] cm LVOT Diam2.17 [ 1.70 - 2.10 ] cm LA Dimension 2D 4.84 [ 3.00 - 4.00 ] cm LVOT Peak Vel1.57 [ 0.70 - 1.10 ] m/s AoR Diam MM 2.73 [ 2.60 - 3.70 ] cm LVOT VTI30.76 [ 20.00 - 30.00 ] cm ACS MM 1.52 [ 1.50 - 2.60 ] cm MV E Peak Vel1.02 [ 0.60 - 1.30 ] m/s MV A Peak Vel1.16 [ 1.00 - 1.20 ] m/s MV Mean PG 3[ <= 5 ] mmHg MV PHT 46[ 20 - 100 ] msec MVA4.80 MV Decel Orwg780 [ 104 - 258 ] msec PV Peak Vel1.00 [ 0.40 - 0.80 ] m/s TR Peak Vel2.83 [ 1.00 - 2.80 ] m/s TR Peak PG 32mmHg RVSP40.00 [ 10.00 - 36.00 ] mmHg E`0.10 cm/sec E/E`10.32 [ <= 10.00 ] PA Jagyrsgg95.00 [ 10.00 - 36.00 ] mmHg - Findings: Atrial Septum: The atrial septum is not well visualized. Left Ventricle: Normal global left ventricular systolic function. Ejection fraction isvisually estimated at 55 to 60 %. Left Atrium: The left atrium is normal in size. Right Ventricle: Normal right ventricular size. Right Atrium: The right atrium is normal in size. Aortic Valve: Aortic cusps appear mildly sclerotic. Mitral Valve: Normal structure of the mitral valve. Trivial regurgitation of the mitralvalve. Pulmonic Valve: Pulmonic valve not well visualized. Tricuspid Valve: Normal structure of the tricuspid valve. Mild pulmonary hypertension basedon right ventricular systolic pressure. Estimated peak RVSP is 42 to 46 mmHg.Trivial regurgitation in the tricuspid valve. Pericardium: There is an anterior echo free space consistent with epicardial fat pad. Aorta: Normal aortic root. IVC: The IVC is not well visualized. Conclusions: Normal global left ventricular systolic function. Ejection fraction isvisually estimated at 55 to 60 %. Normal structure of the mitral valve. Trivial regurgitation of the mitralvalve. Aortic cusps appear mildly sclerotic. Normal structure of the tricuspid valve. Mild pulmonary hypertension basedon right ventricular systolic pressure. Estimated peak RVSP is 42 to 46 mmHg.Trivial regurgitation in the tricuspid valve. Technically difficult study with limited views. Electronically Signed By: Dr Manny Aguilar 2022-12-07 11:08:04 PROFESSIONAL BENEFITS SALES CONSULTANT CC: CC: Manny Aguilar MD CV ECHO PROCEDURES Final Resu lt documented in this encounter Visit Diagnoses Diagnosis Coronary artery disease involving grayling coronary artery of grayling heart without angina pectoris- Primary Elevated LDL cholesterol level Chronic obstructive pulmonary disease, unspecified COPD type (HCC) Primary hypertension Unspecified essential hypertension Coronary artery disease involving grayling coronary artery of grayling heart without angina pectoris documented in this encounter Discontinued Medications Medication Sig Discontinue Reason Start Date End Da te amLODIPine (NORVASC) 5 mg tablet Take 1 tablet (5 mg total) by mouth daily 02/14/2022 10/17/2022 documented as of this encounter Care Teams Lapper Relationship Specialty Start Date End Date Brice Ulrich MD PCP - General 04/18/17 documented as of this encounter
--- OUTSIDE RECORDS SUMMARY | 2024-12-06 19:53 | XMS_ITS | Encounter Summary ---
Author Organization [facility] Address [address] [place] [address] Care Team Providers Care Software Intern Name Role Phone Brice Ulrich MD Primary Care Provider [phone] Encounter Details Date Type Department Care Team (Late st Contact Info) Description 07/26/2021 7:05 AM CDT Lab [facility] [address] [place] [address] Cristian Aguilar MD [address] [place] [address] Dyslipidemia Discharge Disposition: Discharge to home or self care Social History Tobacco Use Types Packs/Day Years Used Date Smoking Tobacco: Former Smokeless Tobacco: Never Sex and Gender Information Value Date Recorded Sex Assigned at Not on file 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 Sex 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 Gender Identity Not on file Sexual Orientation Not on file documented as of this encounter Discharge Disposition Disposition Code Departure Means Destination Discharge to home or self care documented in this encounter Plan of Treatment Not on file documented as of this encounter Procedures Procedure Name Priority Date/Time Associated Diagnosis Comments HEPATIC FUNCTION PANEL Routine 07/26/2021 7:07 AM CDT Dyslipidemia LIPID PANEL Routine 07/26/2021 7:07 AM CDT Dyslipidemia documented in this encounter Results * Hepatic [...] LAB BLOOD ORDERABLES Final Re sult [facility] ([place]) [facility] Department [place] [address] * (ABNORMAL) Lipid panel (07/26/2021 7:07 AM CDT) Cholesterol 170 30 - 199 mg/dL [facility] ([place]) Comment: Interpretive Data Ages < [...] revised on 2018. Triglycerides 221(H) <=149 mg/dL [facility] ([place]) Comment: Interpretive Data Ages < [...] on 2018. HDL 42 >=40 mg/dL [facility] ([place]) Comment: Interpretive Data Ages < or [...] 2018. Non-HDL Cholesterol 128 mg/dL [facility] ([place]) Comment: Interpretive Data [...] BLOOD ORDERABLES Final Re sult [facility] ([place]) [address] [facility] Department [place] [address] documented in this encounter Visit Diagnoses Diagnosis Dyslipidemia Other and unspecified hyperlipidemia documented in this encounter Care Teams Software Intern Relationship Specialty Start Date End Date Brice Ulrich MD PCP - General 04/18/17 documented as of this encounter
--- OUTSIDE RECORDS SUMMARY | 2024-12-06 19:53 | XMS_ITS | Encounter Summary ---
Author Organization [facility] Address [address] [place] [address] Care Team Providers Care Automobile Locator Name Role Phone Unavailable Primary Care Provider Unavailabl e Encounter Details Date Type Department Care Team (Late st Contact Info) Description 02/18/2007 9:54 AM CDT - 02/23/2007 11:59 PM CDT Hospital Encounter [facility] Cristian Jiang MD [address] [place] [address] [address] Social History Tobacco Use Types Packs/Day Years Used Date Smoking Tobacco: Never Assessed Sex and Gender Information Value Date Recorded Sex Assigned at Not on file Legal Sex Male 12:13 PM ORGANIZATIONAL CONSULTANT Gender Identity Not on file Sexual Orientation Not on file documented as of this encounter Plan of Treatment Not on file documented as of this encounter Visit Diagnoses Not on filedocumented in this encounter
--- OUTSIDE RECORDS SUMMARY | 2024-12-06 19:53 | XMS_ITS | Encounter Summary ---
Author Organization [facility] Address [address] [place] [address] Care Team Providers Care Protective Signal Operations Supervisor Name Role Phone Unavailable Primary Care Provider Unavailabl e Encounter Details Date Type Department Care Team (Late st Contact Info) Description 03/26/2007 12:01 AM CDT - 04/25/2007 11:59 PM CDT Hospital Encounter [facility] Cristian Jiang MD [address] [place] [address] [address] Social History Tobacco Use Types Packs/Day Years Used Date Smoking Tobacco: Never Assessed Sex and Gender Information Value Date Recorded Sex Assigned at Not on file Legal Sex Male 12:13 PM OPTOMETRIC 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
--- OUTSIDE RECORDS SUMMARY | 2024-12-06 19:53 | XMS_ITS | Encounter Summary ---
Author Organization [facility] Address [address] [place] [address] Care Team Providers Care Homeland Security Program Specialist Name Role Phone Unavailable Primary Care Provider Unavailabl e Encounter Details Date Type Department Care Team (Late st Contact Info) Description 07/27/2007 12:01 AM CDT - 08/25/2007 11:59 PM CDT Hospital Encounter [facility] Cristian Jiang MD [address] [place] [address] [address] Social History Tobacco Use Types Packs/Day Years Used Date Smoking Tobacco: Never Assessed Sex and Gender Information Value Date Recorded Sex Assigned at Not on file Legal Sex 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
--- OUTSIDE RECORDS SUMMARY | 2024-12-06 19:53 | XMS_ITS | Encounter Summary ---
Author Organization [facility] Address [address] [place] [address] Care Team Providers Care Nitrate Operator Name Role Phone Brice Ulrich MD Primary Care Provider [phone] Reason for Referral * Cardiology (Routine) - Closed Specialty Diagnoses / Procedures Referred By Contac t Referred To Contact Diagnoses Coronary artery disease involving [place] coronary artery of [place] heart without angina pectoris Procedures Transthoracic Echo (TTE) Complete W Doppler/CF Manny Aguilar MD [address] [place] [address] [address]ED[address] [place] [address] Phone: tel: fax: [address] [phone] Referral ID Status Reason Start Date Expiration Date Visits Re quested Visits Authorized [id number] Closed 10/17/2022 11/16/2023 1 1 [employer] Reason for Visit * Cardiology (Routine) - Closed Specialty Diagnoses / Procedures Referred By Contac t Referred To Contact Diagnoses Coronary artery disease involving [place] coronary artery of [place] heart without angina pectoris Procedures Transthoracic Echo (TTE) Complete W Doppler/CF Manny Aguilar MD [address] [place] [address] [address]ED[address] [place] [address] Phone: tel: fax: [address] [phone] Referral ID Status Reason Start Date Expiration Date Visits Re quested Visits Authorized [id number] Closed 10/17/2022 11/16/2023 1 1 Encounter Details Date Type Department Care Team (Latest Contact Info) Description 12/07/2022 6:46 AM 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 - 12/07/2022 11:59 PM 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 Hospital Encounter [facility] Cardiology [address] [place] [id number] Coronary artery disease involving [place] coronary artery of [place] heart without angina pectoris Discharge Disposition: Discharge to home or self care Social History Tobacco Use Types Packs/Day Years Used Date Smoking Tobacco: Former Smokeless Tobacco: Never Sex and Gender Information Value Date Recorded Sex Assigned at Not on file Legal Sex Male 12:13 PM 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 Gender Identity Not on file Sexual Orientation [...] mouth daily 90 tablet 3 07/26/2021 02/26/2023 clopidogreL (PLAVIX) 75 mg tablet Take 1 tablet (75 mg total) by mouth daily 90 tablet 3 05/18/2022 05/25/2023 lisinopriL (PRINIVIL,ZESTRIL ) 40 mg tablet Take 1 tablet (40 mg total) by mouth daily 90 tablet 3 02/15/2021 02/26/2023 metoprolol (LOPRESSOR) 100 mg tablet Take 1 tablet (100 mg total) by mouth 2 (two) times a day 180 tablet 3 02/28/2021 02/28/2023 documented as of this encounter Discharge Disposition Disposition Code Departure Means Destination Discharge to home or self care documented in this encounter Miscellaneous Notes * Result Encounter Note - Belén Calderón MA - 12/07/2022 7:30 AM CST Manny Aguilar MD Leady, [place], [place] Please tell patient heart function looked good. ?? No significant leaky valves. Continue same medical regimen. Patient advised [employer]AILER documented in this encounter Plan of Treatment Not on file documented as of this encounter Procedures Procedure Name Priority Date/Time Associated Diagnosis Comments TRANSTHORACIC ECHO (TTE) COMPLETE W DOPPLER/CF WO CONTRAST Routine 12/07/2022 7:57 AM 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 Coronary artery disease involving [place] coronary artery of [place] heart without angina pectoris documented in this encounter Results * TRANSTHORACIC ECHO (TTE) COMPLETE W DOPPLER/CF WO CONTRAST (12/07/2022 7:57 AM 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) Anatomical Region Laterality Modality Ultrasound 12/07/2022 7:28 AM 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 Narrative 12/07/2022 11:08 AM 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 [address] [address] Echocardiogram Report Patient Name: DB REED : 1965 Study Date: 12/07/2022 7:28:12 AM Gender: M Tech: OLI Location: Echo Lab 1 Ref.Provider: MANNY AGUILAR Height(Cm): 193 BSA: 2.61 Weight(Kg): 127 Quality: Technically Difficult Study Order Provider: MANNY AGUILAR Procedures: Echocardiographic Report: Transthoracic echocardiogram with complete 2D, M-Mode, and color Doppler examination. Indications: Coronary artery disease involving [place] coronary artery of [place] heart without angina pectoris. Measurements: 2D/M Mode [...] Signed By: Dr Manny Aguilar 2022-12-07 11:08:04 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 CC: CC: Procedure Note Manny Aguilar MD - 12/07/[address] [place] [address] Echocardiogram Report Patient Name: DB REEDPatient ID: [id number] : [id number] Date: 12/07/2022 7:28:12 AM Gender: MAccession #: [id number] Tech: JCLocation: Echo Lab 1 Ref.Provider: Keeley AGUILARight(Cm): 193 BSA: 2.61Weight(Kg): 127 Quality: Technically Difficult StudyOrder Provider: MANNY AGUILAR Procedures: Echocardiographic Report: Transthoracic echocardiogram with complete 2D, M-Mode, and color Dopplerexamination. Indications: Coronary artery disease involving [place] coronary artery of [place] heartwithout angina pectoris. Measurements: 2D/M Mode Doppler [...] - 100 ] msec MVA4.80 MV Decel Idic292 [ 104 - 258 ] msec PV Peak Vel1.00 [ 0.40 - 0.80 ] m/s TR Peak Vel2.83 [ 1.00 - 2.80 ] m/s TR Peak PG 32mmHg RVSP40.00 [ 10.00 - 36.00 ] mmHg E`0.10 cm/sec E/E`10.32 [ <= 10.00 ] PA Taeouicq54.00 [ 10.00 - 36.00 ] mmHg - [...] Signed By: Dr Manny Aguilar 2022-12-07 11:08:04 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 CC: CC: Manny Aguilar MD CV ECHO PROCEDURES Final Resu lt documented in this encounter Visit Diagnoses Diagnosis Coronary artery disease involving [place] coronary artery of [place] heart without angina pectoris documented in this encounter Care Teams Nitrate Operator Relationship Specialty Start Date End Date Brice Ulrich MD PCP - General 04/18/17 documented as of this encounter
--- OUTSIDE RECORDS SUMMARY | 2024-12-06 19:54 | XMS_ITS | Continuity of Care Document ---
Author Organization [facility] Address [id number] [place] [address] [address] [place] [address] Phone Care Team Providers Care Mason Apprentice Name Role Phone Yusef Estrada MD, FACS Unavailable Unavailab le Procedures Procedure Date Corneal Topography Advance Directives Directive Yes / No Effective Date File Name No Information Encounters Encounter Description Practice Location Reason(s) For Visit Diagnoses Date Provider Providers Copied on Encounter [facility], [address] [facility] [address], [place], [place], [id number], [place] tel:[phone] [facility] [place] No Information Natalie Holbrook. [address] [facility], [address], [place], [place], [id number], [place]. tel:[phone] Family History Family Member Type Diagnosis Age At Onset No Information Payers Payer name Insurance type Covered republican ID Authoriza tion(s) No Information Social History Type Description Quantity Date Captured Comments Sex Male Smoking Status No Information Chief Complaint And Reason For Visit No Information Reason For Referral Reason For Referral No Information History Of Present Illness Encounter Date Complaint History Of Prese nt Illness No Information Functional Status Date Functional Assessmen t No Information Instructions Date Instruction Additional Infor mation No Information Assessments Type Assessment Date No Information Patient Care Teams Name Effective Dates (start - stop) Status Members No Information
--- OUTSIDE RECORDS SUMMARY | 2024-12-06 19:54 | XMS_ITS | Continuity of Care Document ---
Author Organization [facility] Address [address] [place] [address] [address] [place] [address] Phone Care Team Providers Care Spindle Frame Carver Name Role Phone Yusef Estrada MD, FACS Unavailable Unavailab le Procedures Procedure Date Corneal Topography Advance Directives Directive Yes / No Effective Date File Name No Information Encounters Encounter Description Practice Location Reason(s) For Visit Diagnoses Date Provider Providers Copied on Encounter [facility], [address], [place], [place], [id number], [place] tel:[phone] [facility] [place] No Information Natalie Holbrook. [address] [facility], [address], [place], [place], [id number], [place]. tel:[phone] Family History Family Member Type Diagnosis Age At Onset No Information Payers Payer name Insurance type Covered alliance party ID Authoriza tion(s) No Information Social History [...]
== END 2024-11-29 14:15 | disposition home or self-care (01) ==
PROVIDERS: Emergency Provider Nurse Practitioner; PCP Family Medicine
DX: T14.8XXA Other injury of unspecified body region, initial encounter (principal); I25.2 Old myocardial infarction; I10 Essential (primary) hypertension; X58.XXXA Exposure to other specified factors, initial encounter
CPT/HCPCS: 99213; G0463